=== PATIENT | female | born 1940 | race Caucasian/White ===

== ENCOUNTER 2020-01-03 11:30 | Outpatient (CLI) | payer OTHER, SELFPAY ==
--- NOTE | ~2020-01-03 | XR_ITS ---
EXAMINATION: XR shoulder LT min 2V DATE: 01/03/2020 12:33 INDICATION: Left shoulder pain. Injury. TECHNIQUE: 5 views of left shoulder were obtained. COMPARISON: None. FINDINGS: Bone alignment is normal. No fracture. There is mild osteoarthritis of glenohumeral joint a nd acromioclavicular joint. There are surgical clips in the neck. IMPRESSION: 1. Mild polyarticular osteoarthritis. Reviewed, dictated and finalized at location A.
== END 2020-01-03 11:31 | disposition home or self-care (01) ==
PROVIDERS: PCP Internal Medicine; Visit Provider Internal Medicine
DX: M19.012 Primary osteoarthritis, left shoulder (principal)
CPT/HCPCS: 73030

== ENCOUNTER 2020-04-01 14:45 | Outpatient (RCR) | payer OTHER, SELFPAY ==
[2020-03-17 12:39] VITALS: BP_SYST 120; BP_SYST 130
--- NOTE | 2020-03-17 13:53 | PTOPEVAL ---
PHYSICAL THERAPY EVALUATION AND PLAN OF CARE 03-17-2020 The PT evaluation was completed today. The evaluation is for the diagnosis of other symptoms and signs of the musculoskeletal system. Suzanne reports problems with R and L shoulder pain and weakness, back pain, leg weakness and problems walking. She reports at this time, the shoulders are giving her the most problems. After discussed PT services with her, she agreed to begin PT for the R and L shoulders for 2x/week for 3 weeks, then we will address her leg weakness and gait/balance issues. Thank you for referring Suzanne Snider to [facility]. Please review, sign, date and return this plan of care MARGO. I agree with and certify that the following plan of care is medically necessary. Referring Physician Date Attending Provider: Paty Montelongo, ASHAC *PT Outpatient Evaluation Start: 03/17/20 12:38 Document 03/17/20 12:39 JOSEFINA (Rec: 03/17/20 13:49 JOSEFINA [id number]) Therapy Assessment Status Assessment Status Assessment Status Evaluation Outpatient Past Medical History Past Medical History Source of Past Medical History Patient Neurological History Hx Transient Ischemic Attacks (TIA) Yes: reports no residual issues Hx Other Neurological Disorders Yes: reports some times cannot think of words,finish sentances Cardiovascular History Hx Hypertension Yes: meds Hx Other Cardiac Disorders Yes: carotid artery surgery R and L Respiratory History Hx Respiratory Disorders No Significant History Gastrointestinal History Hx Gastrointestinal Disorders No Significant History Genitourinary History Hx Other Genitourinary Disorders Yes: overactive bladder - to have surgery Musculoskeletal History Hx Back Pain Yes Hx Other Musculoskeletal Disorders Yes: B shoulder pain Endocrine History Hx Hypothyroidism Yes: meds HEENT History Hx HEENT Disorders No Significant History Evaluation Information Problem Diagnosis other symptoms and signs involving the musculoskeletal system Onset December 2019 Additional Evaluation Detail she reports- pain all over-- shoulders, back, legs; problems with walking, legs and arms weak; Subjective Information shoulders worse in the past Query Text:As Reported By Patient/ few months; was hit by door Family in R shoulder when carrying in groceries; also have back pain and leg pain--problems walking; had 2 sessions for back at another facility, but shoulder
--- NOTE | 2020-03-24 14:20 | PCPTNOTE ---
Addendum entered by Karmen Leon, PT 03/27/20 13:19: when pt here today, she stated she called and left a message notifying us that she was ill and would not be here for 03-24-20 appt Original Note: pt did not show for today's treatment session;
--- NOTE | 2020-04-01 15:08 | PCPTNOTE ---
pt did not show for today's treatment;
--- NOTE | 2020-04-03 14:30 | PCPTNOTE ---
Patient called & cancelled scheduled appointment this date due to [ illness.]
--- NOTE | 2020-04-07 09:25 | PCPTNOTE ---
pt did not show for today's reevaluation appt;
--- NOTE | 2020-04-22 11:36 | PCPTNOTE ---
PHYSICAL THERAPY DISCHARGE 04-22-2020 Attending Provider: Paty Montelongo, [employer]ASURES SEALER-C Patient:Suzanne Snider Date of :1940 Mrs. Snider has not returned for any further treatments since 04/01/2020, therefore she will be discharged at this time. She received 3 PT sessions, from March 17 to March 27 for the diagnosis of B shoulder pain. Her order also had diagnosis of decreased balance, which had not yet been addressed. She called/canceled 1 and did not show for 3 appointments. The goals were not addressed. Thank you for referring Suzanne to [facility]. Please review, sign, date and return this discharge summary MARGO. I have been updated about the patient's current status and I agree with discharge from the above service at this time. Referring Physician Date
== END 2020-04-23 10:49 | disposition home or self-care (01) ==
LOC: ANHPT 14:45
PROVIDERS: PCP Internal Medicine; Visit Provider Nurse Practitioner
DX: R29.898 Other symptoms and signs involving the musculoskeletal system (principal)
CPT/HCPCS: 97110; 97140; 97161

== ENCOUNTER 2020-04-17 12:04 | Emergency (ER) | payer OTHER, SELFPAY ==
--- NOTE | ~2020-04-17 | CT_ITS ---
EXAMINATION: CT cervical spine wo con DATE: 04/17/2020 12:35 INDICATION: Frontal head injury. TECHNIQUE: Computed tomography (CT) of the cervical spine was performed without intravenous contrast. Automated exposure control and iterative reconstruction technique were employed. The dose-length pro duct was 303.76 mGy-cm. COMPARISON: None FINDINGS: There is kyphosis of cervical spine. There is 8 degrees dextrocurvature of cervical spine. There is 2 mm anterolisthesis of T1 on T2. Vertebral body heights are normal. There is severely decre ased disc height from C3-C4 through C7-T1. The following disc levels are specifically discussed: C2-C3: There is no uncovertebral joint osteoarthritis. There is moderate right and severe left facet joint osteoarthritis. There is mild left neural foraminal stenosis. There is no central canal stenosi s. C3-C4: There is moderate right and severe left uncovertebral joint osteoarthritis. There is mild righ t and severe left facet joint osteoarthritis. There is moderate left neural foraminal stenosis. There is mild central canal stenosis. C4-C5: There is mild right and severe left uncovertebral joint osteoarthritis. There is moderate righ t and severe left facet joint osteoarthritis. There is mild left neural foraminal stenosis. There is mild central canal stenosis. C5-C6: There is moderate bilateral uncovertebral joint osteoarthritis. There is mild bilateral facet joint osteoarthritis. There is moderate right and mild left neural foraminal stenosis. There is mild central canal stenosis. C6-C7: There is severe bilateral uncovertebral joint osteoarthritis. There is moderate bilateral face t joint osteoarthritis. There is moderate bilateral neural foraminal stenosis. There is mild central canal stenosis. C7-T1: There is severe bilateral uncovertebral joint osteoarthritis. There is severe bilateral facet joint osteoarthritis. There is mild bilateral neural foraminal stenosis. There is mild central canal stenosis. IMPRESSION: 1. No fracture. 2. Severe cervical spondylosis. Reviewed, dictated and finalized at location A.
--- NOTE | ~2020-04-17 | CT_ITS ---
EXAMINATION: CT brain wo con DATE: 04/17/2020 12:35 INDICATION: Frontal head injury. TECHNIQUE: Computed tomography (CT) of the head was performed without intravenous contrast. The mA wa s adjusted according to patient size. Iterative reconstruction technique was employed. The dose-lengt h product was 605.33 mGy-cm. COMPARISON: Head CT 11/20/2007 FINDINGS: There is an old infarct involving the left basal ganglia, left internal capsule, and left f rontal lobe shahid radiata. There is a small old infarct in right frontoparietal region. There is no intracranial hemorrhage, acute infarction, or abnormal intracranial mass lesion. There is ex vacuo di latation of left lateral ventricle. The orbits are normal. There is mild mucosal thickening in the et hmoid sinuses. The mastoid air cells are normal. There is a right frontal scalp hematoma. IMPRESSION: 1. 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 Reviewed, dictated and finalized at location A. IMPRESSION: 1. 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
[2020-04-17 12:16] VITALS: BP 192/74; PULSE 87; RESP 19; TEMP 36.7; O2SAT 99
--- NOTE | 2020-04-17 12:27 | ED.HEATRA ---
HPI - Head Injury General Chief complaint: Head Injury <Serge Conteh HemaGIOVANNA - Last Filed: 04/17/20 13:10> Stated complaint: fall <Serge Conteh HemaGIOVANNA Last Filed: 04/17/20 13:10> Time Seen by Provider: 04/17/20 12:18 <Serge Garrido PA-C - Last Filed: 04/17/20 13:10> Source: patient <Serge GarridoGIOVANNA Last Filed: 04/17/20 13:10> Mode of arrival: ambulatory <Serge Conteh HemaGIOVANNA Last Filed: 04/17/20 13:10> Limitations: no limitations <Serge Garrido PA-C Last Filed: 04/17/20 13:10> History of Present Illness HPI Narrative: Patient is an 80-year-old female who presents to emergency department for evaluation of head injury from urgent care patient was ambulating when she tripped on her shoes falling forward striking the head where she has abrasions and a very large hematoma to the forehead patient denies loss of consciousness syncope. . Patient notes moderate aching pain to the face where her abrasions and contusion are located. Patient is afebrile nontoxic-appearing denies URI symptoms. Patient lives at home by herself. Patient denies anticoagulant use. Patient notes moderate pain to the neck denies any other skeletal injury or pain at this time. <Serge Garrido PA-C Last Filed: 04/17/20 13:10> Related Data Home medications: Home Medications Medication Instructions Recorded Confirmed solifenacin 5 mg tablet 5 mg PO DAILY 02/08/20 02/08/20 <Serge Garrido PA-C Last Filed: 04/17/20 13:10> Allergies/Adverse reactions: Allergies Allergy/AdvReac Type Severity Reaction Status Date / Time codeine AdvReac Unknown Rash Verified 04/17/20 12:19 <Serge Garrido PA-C Last Filed: 04/17/20 13:10> Review of Systems Review of Systems: All systems reviewed & are unremarkable except as noted in HPI and below <Serge Garrido PA-C Last Filed: 04/17/20 13:10> PMF Past Medical History Medical History: Medical History (Updated 07/23/20 @ 13:08 by Patricia Weiner MD) Anxiety and depression Hypothyroidism (acquired) Mixed hyperlipidemia Restless legs syndrome <Serge Garrido PA-C - Last Filed: 04/17/20 13:10> Family History Family History: Family History Mother Family history of pancreatic cancer Patient's mother is Father Acute myocardial infarction Patient's father is Sibling Family history of transient ischemic attacks Other Cerebrovascular accident Family history of cardiovascular disease Hypertension <Serge Garrido PA-C - Last Filed: 04/17/20 13:10> Social History Social History: Social History Smoking status: Former smoker Smoking end date: 09/26/02 Alcohol intake: current Gender identity (if verbalized by the patient): Female <Serge Garrido PA-C - Last Filed: 04/17/20 13:10> Exam Narrative: Exam Narrative: GENERAL: Well-appearing, well-nourished, and in no acute distress. HEAD: Normocephalic, hematoma of the right forehead. Abrasion of the right cheek and upper lip midline EYES: PERRLA and EOMI. ENT: Nares clear, no rhinorrhea or epistaxis. Mucous membranes moist. Oropharynx without tonsillar hypertrophy exudate or other lesions. NECK: Supple. No adenopathy or masses. CHEST: Clear to auscultation. No respiratory distress. No wheezes rales or rhonchi HEART: Regular rate and rhythm. No murmur heard. Normal peripheral pulses. ABDOMEN: Soft, nontender, nondistended EXTREMITIES: Normal range of motion. No edema. Cervical tenderness to palpation. No thoracic or lumbar tenderness SKIN: Warm, dry, no rash. NEURO: No focal deficits. Alert and oriented x3. Cranial nerves II through XII grossly intact. Normal speech. Motor and sensory intact and symmetrical in the extremities PSYCH: Normal mood and affect. <Serge Wood
[2020-04-17 12:56] LABS: Basophils Absolute Auto 0.1 K/mm3 (0.0-0.1); Basophils Percent Auto 0.5 % (0.2-1.2); Eosinophils Absolute Auto 0.2 K/mm3 (0-0.3); Eosinophils Percent Auto 1.9 % (0-4.4); Hematocrit 39.9 % (37.0-47.0); Hemoglobin 12.6 g/dL (12.0-15.0); Immature Granulocyte Absolute 0.05 K/mm3 (0.00-0.031); Immature Granulocyte Percent A 0.4 % (0-0.5); Lymphocytes Absolute Auto 1.82 K/mm3 (0.9-3.2); Lymphocytes Percent Auto 15.3 % (18.3-44.2); Mean Corpuscular HGB Conc 31.6 g/dl (32-36); Mean Corpuscular Hemoglobin 26.9 pg (26-34); Mean Corpuscular Volume 85.1 fl (80-100); Mean Platelet Volume 9.3 fl (7.4-10.4); Monocytes Absolute Auto 1.3 K/mm3 (0.1-0.6); Monocytes Percent Auto 10.5 % (2.6-8.5); Neutrophils Absolute Auto 8.5 K/mm3 (1.3-6.7); Neutrophils Percent Auto 71.4 % (45.5-73.1); Platelet Count Result 525 k/mm3 (150-375); Red Blood Count 4.69 M/mm3 (4.2-5.4); Red Cell Distribution Width 15.1 % (11.5-14.5); White Blood Count 11.9 K/mm3 (4.5-10.0)
[2020-04-17 13:05] LABS: INR 1.2; Prothrombin Time 14.6 Seconds (11.1-14.7)
[2020-04-17 13:09] LABS: Alanine Aminotransferase 14 U/L (4-35); Alkaline Phosphatase 105 U/L (38-126); Anion Gap 12.6 mmol/L (7-16); Aspartate Amino Transferase 20 U/L (14-36); Bilirubin,Total 0.4 mg/dL (0.2-1.3); Blood Urea Nitrogen 16 mg/dL (7-17); Calcium 9.3 mg/dL (8.4-10.2); Carbon Dioxide 31 mmol/L (22-30); Chloride 96 mmol/L (98-107); Estimated Glomerular Filt Rate > 60; Glucose 113 mg/dL (65-105); Potassium 3.6 mmol/L (3.4-5.0); Sodium 136 mmol/L (137-145)
[2020-04-17] MEDS: SODIUM CHLORIDE 0.9% IV 1,000 ML 999 ML IV CONT (13:11)
[2020-04-17 13:50] VITALS: BP 176/57; PULSE 87; RESP 20; O2SAT 96
[2020-04-17 14:18] LABS: Add Urine Microscopic? YES; Appearance Urine Clear (Clear); Bilirubin Urine Negative (Negative); Blood Urine Negative (Negative); Color Urine Yellow (Yellow); Glucose Urine UA Negative (Negative); Ketones Urine Negative (Negative); Leukocyte Esterase Ur Trace LEU/UL (Negative); Mucus Urine Rare /lpf; Nitrate Urine Negative (Negative); Protein Urine Negative (Negative); RBC Urine 0-2 /hpf (0-2); Specific Grav Ur 1.012 (1.001-1.035); Squamous Epithelial Cell Urine Many /hpf (Few); Urobilinogen Urine Negative mg/dL (<2.0)
== END 2020-04-17 14:24 | disposition home or self-care (01) ==
PROVIDERS: Emergency Medicine Emergency Medical Services; Emergency Provider Emergency Medicine; PCP Internal Medicine
DX: S00.81XA Abrasion of other part of head, initial encounter (principal); M47.812 Spondylosis without myelopathy or radiculopathy, cervical region; S00.83XA Contusion of other part of head, initial encounter; E03.9 Hypothyroidism, unspecified; E78.2 Mixed hyperlipidemia; G25.81 Restless legs syndrome; W18.09XA Striking against other object with subsequent fall, initial encounter
CPT/HCPCS: 36415; 70450; 72125; 80053; 81001; 85025; 85610; 96365; 99284; J0131; J7030; L0140

== ENCOUNTER 2020-06-04 17:33 | Inpatient (IN) | payer OTHER, SELFPAY ==
[2020-06-04] VITALS (10 sets, daily range): BP systolic 134–198; BP diastolic 63–94; PULSE 71–89; RESP 13–23; TEMP 36.6; O2SAT 19–100; BMI 30.9
--- NOTE | ~2020-06-04 | XR_ITS ---
EXAMINATION: XR chest 1V EXAM DATE: 06/04/2020 19:06 INDICATION: Syncope. Dizziness. Fall, weakness. TECHNIQUE: Portable AP frontal chest x-ray was obtained. Comparison is made to prior examination from 05/25/2013. FINDINGS: There is elevated right hemidiaphragm, higher than on prior study. The lungs are clear. Th ere are no pleural effusions. Cardiac silhouette is prominent but magnified on this AP technique. There is no pneumothorax suspected. The bones and soft tissues are unremarkable. IMPRESSION: Elevated right hemidiaphragm, possible paralysis. No acute cardiopulmonary findings. Reviewed, dictated and finalized at location A. IMPRESSION: Elevated right hemidiaphragm, possible paralysis. No acute cardiopu lmonary findings.
--- NOTE | ~2020-06-04 | CT_ITS ---
EXAMINATION: CT abdomen pelvis wo/w con DATE: 06/08/2020 14:33 INDICATION: Gross hematuria. TECHNIQUE: Computed tomography (CT) of the abdomen and pelvis was performed without and with intraven ous contrast using a total of 130 mL Omnipaque-350 intravenous contrast with a double-bolus technique for simultaneous opacification of the renal parenchyma and renal collecting system. Automated exposu re control and iterative reconstruction technique were employed. The dose-length product was 2282.31 mGy-cm. COMPARISON: None FINDINGS: The visualized portions of the lung bases demonstrate mild atelectasis. No pleural effusion. The hear t size is normal. There are coronary artery calcifications. No pericardial effusion. There is eventra tion of anterior right hemidiaphragm. The liver, gallbladder, spleen, pancreas, and adrenal glands ar e normal. There is a 7 mm cyst in right kidney. There is no urolithiasis. The ureters are well opacif ied and are normal. There is a small volume of hematoma in the bladder. There is a small sliding hiat al hernia. There is a left inguinal hernia containing fat. There are no dilated loops of bowel. The a ppendix is normal. There are no pathologically enlarged lymph nodes. There is no free intraperitoneal fluid. There is severe lumbar spondylosis and moderate thoracic spondylosis. IMPRESSION: 1. Small volume of hematoma in the bladder. 2. Small sliding hiatal hernia. 3. Left inguinal hernia containing fat. Reviewed, dictated and finalized at location A.
--- NOTE | ~2020-06-04 | CT_ITS ---
EXAMINATION: CT brain wo con, CT cervical spine wo con EXAM DATE: 06/04/2020 18:57 (accession [id number]), 06/04/2020 18:58 (accession [id number]) INDICATION: Fall, hit frontal head injury. TECHNIQUE: Spiral CT of the head was performed without contrast. Axial, coronal and sagittal images were reviewed. Spiral CT of the cervical spine was performed without contrast. Axial images were rev iewed. Coronal and sagittal reformatted images were also reviewed. The dose-length product (DLP) fo r this examination was 681.00 (accession [id number]), 375.40 (accession [id number]) mGy-cm. The exposure was tailored according to patient size, and iterative reconstruction (ASIR) was used as additional dose reduction technique. Comparison is made to prior examination from 04/17/2020. FINDINGS: HEAD CT: There is old left external capsular, basal ganglia lacunar infarction. There is no acute int raparenchymal hemorrhage. No evidence of intraparenchymal brain mass lesion. No evidence of acute i nfarction. There is mild to moderate periventricular and subcortical hypodensity, nonspecific but pro bably related to small vessel ischemic disease. There is mild to moderate prominence of the sulci a nd ventricles related to cerebral atrophy. There is intracranial carotid arteriosclerosis. There is no mass effect or midline shift. There is no obstructive hydrocephalus suspected. There are no ex tra-axial collections. There are no acute calvarial fractures. The orbits are unremarkable. Decrea se in size of previously seen right frontal scalp hematoma. The visualized sinuses and mastoid air ce lls are well aerated. CERVICAL CT: There is advanced cervical disc disease and arthropathy. There is no evidence of acute c ervical fracture. The odontoid process is intact. Pre-dens space is normal. Prevertebral soft tiss ue is normal. There are no soft tissue abnormalities identified. There is no disc space widening or traumatic vertebral body subluxation suspected. A detailed level by level evaluation of spondylosis can be added as addendum if requested. IMPRESSION: 1. No acute intracranial findings or cervical fracture. 2. Advanced cervical spondylosis. 3. Old left external capsular, basal ganglia lacunar infarction. 4. Age-related intracranial findings. 5. Resolving right frontal scalp hematoma. Reviewed, dictated and finalized at location A. IMPRESSION: 1. No acute intracranial findings or cervical fracture. 2. Advanced cervical spondylosis. 3. Old left external capsular, basal ganglia lacunar infarction. 4. Age-related intracranial findings. 5. Resolving right frontal scalp hematoma.
--- NOTE | ~2020-06-04 | XR_ITS ---
EXAMINATION: XR ankle RT min 3V EXAM DATE: 06/04/2020 19:05 INDICATION: Initial encounter following injury, with pain of the right ankle. TECHNIQUE: Right ankle frontal, lateral and oblique projections obtained and reviewed. There is no p rior study for comparison. FINDINGS: There is acute closed posttraumatic oblique fracture through the right fibular distal metap hysis extending into the syndesmosis. There is about 4 mm of displacement. The mortise relationship d oes still appear intact. There are multiple small ossifications distal to the medial malleolus, consi stent with sequela from old injuries. No acute medial malleolar fracture identified. Swelling surroun ding the ankle. IMPRESSION: Right fibular distal metaphysis oblique fracture into distal tibiofibular syndesmosis. Reviewed, dictated and finalized at location A. IMPRESSION: Right fibular distal metaphysis oblique fracture into distal tibiof ibular syndesmosis.
--- NOTE | ~2020-06-04 | XR_ITS ---
EXAMINATION: XR ankle RT 2V DATE: 06/05/2020 08:50 INDICATION: Right ankle fracture. Stress views TECHNIQUE: Anteroposterior, oblique, mortise, and lateral views of the right ankle were obtained. COMPARISON: 06/04/2020 FINDINGS: And seen is an oblique fracture of the distal right fibula with fracture line crossing the medial cor grayson approximately 2 cm above level of the tibiotalar joint line. No change in one cortical width late ral displacement of the fracture on stress views relative to the unstressed views. Similarly the ankl e mortise remains congruent with no significant widening of the medial clear space with stress. There are a few heterotopic ossicles near the tip of the medial malleolus likely sequela of an earlier del toid ligament sprain. No other fractures identified. Tibiotalar joint space is normal. IMPRESSION: 1. One cortical width lateral displacement of the oblique distal right fibular fracture which along w ith a congruent ankle mortise is unchanged with stress. Reviewed, dictated and finalized at location A. IMPRESSION: 1. One cortical width lateral displacement of the oblique distal right fibular fracture which along with a congruent ankle mortise is unchanged with stress.
--- NOTE | ~2020-06-04 | XR_ITS ---
EXAMINATION: XR surgery orthopedic DATE: 06/10/2020 18:54 INDICATION: Oblique fracture of distal right fibula. TECHNIQUE: 4 intraoperative fluoroscopic views of right ankle were obtained. I was not present. Fluor oscopy exposure time was 104 seconds. COMPARISON: Right ankle radiographs 06/05/2020 FINDINGS: There is an oblique fracture distal fibula in near-anatomic alignment status post open redu ction internal fixation with semitubular plate and multiple screws. There is a band across the tibiof ibular syndesmosis. There is normal alignment at the ankle mortise. IMPRESSION: 1. Open reduction internal fixation of an oblique fracture of distal fibula. 2. Internal fixation of the tibiofibular syndesmosis. Reviewed, dictated and finalized at location A.
--- NOTE | ~2020-06-04 | XR_ITS ---
XR ankle LT min 3V DATE: 06/06/2020 08:27 INDICATION: Comparison TECHNIQUE: 4 views COMPARISON: 06/04/2020 right ankle FINDINGS: No fracture or dislocation or disruption of the ankle mortise. Slight plantar calcaneal ent hesopathy. IMPRESSION: Slight plantar calcaneal enthesopathy Reviewed, dictated and finalized at location A.
--- NOTE | ~2020-06-04 | XR_ITS ---
EXAMINATION: XR pelvis 1-2V EXAM DATE: 06/04/2020 19:06 INDICATION: Syncope last night, fall. TECHNIQUE: Pelvis frontal projection(s) obtained and reviewed. There is no prior study for compariso n. FINDINGS: There is mild to moderate symmetric bilateral hip primary osteoarthritis. Moderate to migdalia re lower lumbar disc disease. There are no acute pelvic fractures or dislocations identified. There is no subcutaneous gas. There are arterial calcifications, arteriosclerosis. There are no radiopaq ue foreign bodies. IMPRESSION: 1. Pelvis x-ray exam without acute osseous findings. Reviewed, dictated and finalized at location A.
--- NOTE | ~2020-06-04 | US_ITS ---
EXAMINATION: US carotid duplex BI DATE: 06/05/2020 15:36 INDICATION: Syncope. Carotid stenosis. TECHNIQUE: Grayscale, color Doppler, and pulsed Doppler images of the cervical carotid arteries were obtained. The degree of vessel stenosis is placed in one of the following categories: normal, <50%, 5 0-69%, >=70% but less than near-occlusion, near-occlusion, or total occlusion. Note that percent sten osis relative to normal distal artery lumen diameter is indirectly measured from velocity measurement s as described by Froylan, et al. Radiology 2003; 229:340-346. Notes: Normal: Peak systolic velocity <125 centimeters/sec and no plaque <50%. Peak systolic velocity <125 ( EDV <40; ICA/CCA PSV ratio <2.0; used these factors only a tandem lesions or low cardiac output or co ntralateral disease) 50-69 %: PSV 125-230 (EDV 40-100; ratio 2-4) >= 70% but less than near occlusion: PSV greater than 230 (EDV > 100; ratio> 4.0) Near Occlusion: PSV that is variable; markedly narrowed lumen Occlusion: Absent flow on color/spectral Doppler and no lumen on little scale. COMPARISON: None. FINDINGS: RIGHT: The right common carotid artery (CCA) peak systolic velocity (PSV) is 68 cm/s. The right internal car otid artery (ICA) PSV is 82 cm/s. The right ICA end-diastolic velocity (EDV) is 17 cm/s. The right IC A/CCA PSV ratio is 1.2. The external carotid artery (ECA) PSV is 85 cm/s. There is antegrade flow in the right vertebral artery. LEFT: The left CCA PSV is 81 cm/s. The left ICA PSV is 83 cm/s. The left ICA EDV is 17 cm/s. The left ICA/C CA PSV ratio is 1.0. The ECA PSV is 223 cm/s. There is antegrade flow in the left vertebral artery. IMPRESSION: 1. Less than 50% stenosis in the right internal carotid artery by sonographic criteria. 2. Less than 50% stenosis in the left internal carotid artery by sonographic criteria. Reviewed, dictated and finalized at location A. IMPRESSION: 1. Less than 50% stenosis in the right internal carotid artery by sonographic gino holcomb. 2. Less than 50% stenosis in the left internal carotid artery by sonographic melissa bernabe.
--- NOTE | 2020-06-04 18:00 | ECG_ITS ---
Measurements Intervals [place] Rate: 73 P: 96 NC: 182 QRS: -28 QRSD: 109 T: 7 QT: 392 QTc: 433 Interpretive Statements SINUS RHYTHM DELAYED PRECORDIAL R/S TRANSITION LEFT VENTRICULAR HYPERTROPHY AND ST-T CHANGE MINIMAL Q WAVES- HIGH LATERAL LEADS BASELINE ARTIFACT- I, II, V1-V2 BORDERLINE ECG Electronically Signed On 06-05-2020 6:55:19 CDT by Jarred Foy D.O.
[2020-06-04 18:08] LABS: Basophils Absolute Auto 0.1 K/mm3 (0.0-0.1); Basophils Percent Auto 0.5 % (0.2-1.2); Eosinophils Absolute Auto 0.2 K/mm3 (0-0.3); Eosinophils Percent Auto 1.4 % (0-4.4); Hemoglobin 13.3 g/dL (12.0-15.0); Immature Granulocyte Absolute 0.04 K/mm3 (0.00-0.031); Immature Granulocyte Percent A 0.4 % (0-0.5); Lymphocytes Absolute Auto 2.05 K/mm3 (0.9-3.2); Mean Corpuscular HGB Conc 31.7 g/dl (32-36); Mean Corpuscular Volume 85.2 fl (80-100); Mean Platelet Volume 9.5 fl (7.4-10.4); Monocytes Absolute Auto 1.2 K/mm3 (0.1-0.6); Monocytes Percent Auto 10.6 % (2.6-8.5); Neutrophils Absolute Auto 7.9 K/mm3 (1.3-6.7); Neutrophils Percent Auto 69.1 % (45.5-73.1); Platelet Count Result 490 k/mm3 (150-375); Red Blood Count 4.93 M/mm3 (4.2-5.4); White Blood Count 11.4 K/mm3 (4.5-10.0)
[2020-06-04 18:19] LABS: Anion Gap 7 mmol/L (8-16); Blood Urea Nitrogen 8 mg/dL (7-17); Calcium 9.3 mg/dL (8.4-10.2); Carbon Dioxide 31 mmol/L (22-30); Chloride 97 mmol/L (98-107); Estimated CRCL calculation 64 ml/min; Estimated Glomerular Filt Rate > 60; Glucose 112 mg/dL (65-105); Potassium 3.5 mmol/L (3.4-5.0); Sodium 135 mmol/L (137-145)
--- NOTE | 2020-06-04 18:28 | ED.GENADULT ---
HPI - General Adult General Chief complaint: Syncope Stated complaint: weakness-r ankle pain Time Seen by Provider: 06/04/20 17:59 Source: RN notes reviewed History of Present Illness HPI narrative: Patient presents emergency department from home via EMS for a fall. Patient states she was walking approximately 1030 last night to get her dog when she believes she tripped and fell. She states that she believes her struck her head and had loss of consciousness. She denies any dizziness or chest pain prior to the fall. Patient attempted to call family and was unable to get help and laid on the ground all last night into today until family was able to come and find patient this afternoon. Patient currently lives at home by herself and patient's sister is here. States the patient's been having a more difficult time walking. Patient does not regularly take her medications that she is supposed to as well. Patient denies any recent illness. She denies any fevers or chills chest pain shortness of breath abdominal pain nausea vomiting. Patient does report right ankle pain and swelling Related Data Home Medications Medication Instructions Recorded Confirmed solifenacin 5 mg tablet 5 mg PO DAILY 02/08/20 02/08/20 aspirin 06/04/20 Allergies Allergy/AdvReac Type Severity Reaction Status Date / Time codeine AdvReac Unknown Rash Verified 06/04/20 17:51 Review of Systems Review of Systems: Narrative: Gen.: Denies fevers or chills Eyes: Denies eye pain or visual change ENT: Denies congestion Respiratory: Denies shortness of breath or cough CV: Denies chest pain or palpitations GI: Denies abdominal pain nausea, emesis or diarrhea Musculoskeletal: See HPI Neuro: Denies numbness, tingling reports weakness Skin: Denies rash Except as documented, all other systems reviewed and negative [facility] Past Medical History Medical History Anxiety and depression Hypothyroidism (acquired) Mixed hyperlipidemia Restless legs syndrome Social History Social History Smoking status: Former smoker Smoking end date: 09/26/02 Alcohol intake: never Substance use: never Gender identity (if verbalized by the patient): Female Spiritual care concerns: No Exam Narrative: Exam Narrative: APPEARANCE: No acute distress, nontoxic, resting in bed EYES: EOMI, [place] HEENT: Normocephalic, ecchymosis over right forehead oromucosa moist Neck: No midline tenderness palpation mild tender to palpation bilateral paravertebral muscle C5-7 RESPIRATORY: No respiratory distress Clear to auscultation bilaterally with no rhonchi wheezing or rales. CARDIOVASCULAR: Regular rate and rhythm without murmurs rubs or gallops. ABDOMINAL: Soft, nontender, nondistended, no rebound or guarding MUSCULOSKELETAl: Moves all extremities. No clubbing, cyanosis or edema. Tender to palpation of her right ankle diffusely with swelling present, no tenderness at the base of the fifth metatarsal or the proximal fibula dorsalis pedis pulse 2+ neurovascular intact, no tenderness of the right knee or hip NEURO: Awake and alert x 3. Following commands, speech normal, no focal deficits SKIN:: Warm, dry. No rashes lesions or abrasions PSYCHIATRIC: Normal affect/mood, Course Course Emergency Course: Discussed with Dr. Stout presentation and work-up agrees with consult and posterior splint Discussed with Dr. sánchez presentation work-up. Agrees with admission at this time. She does request the patient receive hydralazine 10 mg x 1 at this time Discussed with patient and family results of workup and diagnosis. Discussed need for admission. Patient and family understand and agree to current treatment plan Vital Signs Vital signs: Vital Signs Pulse Rate 78 06/04/20 17:41 Respiratory Rate 23 H 06/04/20 17:41 Temperature 97.8 F 06/04/20 17:47 Pulse Rate 82 06/04/20 20
[2020-06-04] MEDS: SODIUM CHLORIDE 0.9% IV 1,000 ML 999 ML IV CONT (18:30)
--- NOTE | 2020-06-04 18:57 | PC.NURSE ---
DENYS IN LAB AWARE OF LAB ADD ON'S.
[2020-06-04 19:05] LABS: Creatine Kinase 123 U/L (30-135)
[2020-06-04 19:18] LABS: Troponin I 0.024 ng/mL (0.000-0.034)
[2020-06-04 19:19] LABS: INR 1.1; Prothrombin Time 14.2 Seconds (11.1-14.7)
[2020-06-04 19:20] LABS: Partial Thromboplastin Time 36.5 SECONDS (22.3-36.8)
[2020-06-04] MEDS: hydrALAZINE HCL 20 MG/ML VIAL 10 MG IV PUSH (20:50)
[2020-06-04 21:03] LABS: Add Urine Microscopic? YES; Appearance Urine Clear (Clear); Bacteria Urine Trace /hpf; Bilirubin Urine Negative (Negative); Blood Urine 1+ (Negative); Color Urine Yellow (Yellow); Glucose Urine UA Negative (Negative); Ketones Urine Negative (Negative); Leukocyte Esterase Ur Negative LEU/UL (Negative); Mucus Urine Rare /lpf; Nitrate Urine Negative (Negative); Protein Urine Negative (Negative); RBC Urine 0-2 /hpf (0-2); Specific Grav Ur 1.008 (1.001-1.035); Squamous Epithelial Cell Urine Rare /hpf (Few); Urobilinogen Urine Negative mg/dL (<2.0); WBC Urine 0-3 /hpf
--- NOTE | 2020-06-04 21:30 | ADMGEN ---
This patient, Suzanne Snider, was admitted to Medical Room 341-01. Patient/family oriented to hospital policies and general routines including ID bracelet, bed and alarms, visiting hours, pain management, procedures, bathroom and other care routines, personal items, smoking policy, room service/diet, and visiting hours. Valuables list has been completed. Information on how to activate the Rapid Response Team has been discussed. Patient/Family are encouraged to report perceived risks to care and to ask questions if they do not understand what they are told or what they should do.
[2020-06-04 22:45] LABS: Troponin I 0.026 ng/mL (0.000-0.034)
[2020-06-04] MEDS: rOPINIRole HCL 1 MG TABLET 2 MG PO (23:57)
[2020-06-05] VITALS (10 sets, daily range): BP systolic 147–164; BP diastolic 58–80; PULSE 72–85; RESP 18; TEMP 36.4–36.6; O2SAT 94–98; BMI 30.9
[2020-06-05 01:06] LABS: Troponin I 0.024 ng/mL (0.000-0.034)
[2020-06-05] MEDS: LEVOTHYROXINE SODIUM 125 MCG TABLET PO (05:45)
[2020-06-05 06:00] LABS: Basophils Absolute Auto 0.1 K/mm3 (0.0-0.1); Basophils Percent Auto 0.6 % (0.2-1.2); Eosinophils Absolute Auto 0.3 K/mm3 (0-0.3); Eosinophils Percent Auto 2.8 % (0-4.4); Hematocrit 37.1 % (37.0-47.0); Hemoglobin 11.8 g/dL (12.0-15.0); Immature Granulocyte Absolute 0.03 K/mm3 (0.00-0.031); Immature Granulocyte Percent A 0.3 % (0-0.5); Lymphocytes Absolute Auto 1.95 K/mm3 (0.9-3.2); Lymphocytes Percent Auto 21.5 % (18.3-44.2); Mean Corpuscular HGB Conc 31.8 g/dl (32-36); Mean Corpuscular Hemoglobin 26.7 pg (26-34); Mean Corpuscular Volume 83.9 fl (80-100); Mean Platelet Volume 9.6 fl (7.4-10.4); Monocytes Absolute Auto 1.1 K/mm3 (0.1-0.6); Monocytes Percent Auto 11.6 % (2.6-8.5); Neutrophils Absolute Auto 5.7 K/mm3 (1.3-6.7); Neutrophils Percent Auto 63.2 % (45.5-73.1); Platelet Count Result 456 k/mm3 (150-375); Red Blood Count 4.42 M/mm3 (4.2-5.4); Red Cell Distribution Width 14.8 % (11.5-14.5); White Blood Count 9.1 K/mm3 (4.5-10.0)
[2020-06-05 06:11] LABS: Anion Gap 3 mmol/L (8-16); Blood Urea Nitrogen 6 mg/dL (7-17); Calcium 8.7 mg/dL (8.4-10.2); Carbon Dioxide 30 mmol/L (22-30); Chloride 102 mmol/L (98-107); Estimated CRCL calculation 75 ml/min; Estimated Glomerular Filt Rate > 60; Glucose 91 mg/dL (65-105); Potassium 3.3 mmol/L (3.4-5.0); Sodium 135 mmol/L (137-145)
--- NOTE | 2020-06-05 09:12 | PM.CNOR ---
History of Present Illness HPI Consult date: 06/05/20 <IKE Us - Last Filed: 06/05/20 09:38> 06/06/20 <Karl Stout MD - Last Filed: 06/06/20 17:18> Chief complaint: Fall <IKE Us - Last Filed: 06/05/20 09:38> [facility] Past Medical History Medical History: Medical History Anxiety and depression Chronic midline low back pain without sciatica Depression with anxiety Essential (primary) hypertension Gastroesophageal reflux disease History of transient ischemic attack and cerebral infarction Hypothyroidism (acquired) Low vitamin B12 level Mixed hyperlipidemia Osteoarthritis Restless legs syndrome Urge incontinence of urine Vitamin D deficiency <IKE Us - Last Filed: 06/05/20 09:38> Surgical History Surgical History: Surgical History History of bilateral carotid endarterectomy left carotid endarterectomy June 2004 followed by right carotid endarterectomy a couple years later History of carpal tunnel surgery right - 1996 History of tubal ligation 1977 Hx of tonsillectomy 1957 <IKE Us - Last Filed: 06/05/20 09:38> Family History Family History: Family History Mother Patient's mother is Family history of pancreatic cancer Cerebrovascular accident Hypertension Family history of cardiovascular disease Father Acute myocardial infarction Patient's father is Hypertension Family history of cardiovascular disease Sibling Family history of transient ischemic attacks <IKE Us - Last Filed: 06/05/20 09:38> Social History Social History: Social History (Updated 06/05/20 @ 11:35 by Althea Moore PA-C) Social History: Ms. Snider lives at home alone in [place]. She denies alcohol use. Remote history of occasional cigarette smoking and quit in the . Denies other substance use. Code status was discussed and she wishes her code status to be Do Not Resuscitate. PCP: Dr Hernandez Smoking status: Former smoker Alcohol intake: never Substance use: never Living arrangements: alone Gender identity (if verbalized by the patient): Female Spiritual care concerns: No <IKE Us - Last Filed: 06/05/20 09:38> Meds Home Medications and Allergies Home medications: Home Medications Medication Instructions Recorded Confirmed Type clopidogrel 75 mg tablet 75 mg PO DAILY #90 tablet 11/23/19 06/04/20 Rx valsartan 320 mg tablet 320 mg PO DAILY #90 tablet 11/23/19 06/04/20 Rx atorvastatin 10 mg tablet 10 mg PO DAILY #90 tablet 11/26/19 06/04/20 Rx bupropion HCl 300 mg 24 hr tablet, 300 mg PO QAM #90 tablet 11/26/19 06/04/20 Rx extended release furosemide 80 mg tablet 80 mg PO QAM #90 tablet 01/07/20 06/04/20 Rx potassium chloride 10 mEq 10 meq PO DAILY #90 tablet 01/08/20 06/04/20 Rx tablet,extended release solifenacin 5 mg tablet 5 mg PO DAILY 02/08/20 06/04/20 History tizanidine 4 mg capsule 4 mg PO BID PRN #90 cap 02/19/20 06/04/20 Rx tramadol 100 mg tablet 100 mg PO Q6H PRN #120 tablet 03/26/20 06/04/20 Rx ropinirole 2 mg tablet 2 mg PO BID #180 tablet 04/15/20 06/04/20 Rx levothyroxine 125 mcg tablet 125 mcg PO DAILY #90 tablet 04/23/20 06/04/20 Rx aspirin 81 mg PO DAILY 06/04/20 06/04/20 History <IKE Us - Last Filed: 06/05/20 09:38> Allergies/Adverse reactions: Allergies Allergy/AdvReac Type Severity Reaction Status Date / Time codeine AdvReac Unknown Rash Verified 06/04/20 17:51 <IKE Us - Last Filed: 06/05/20 09:38> Vital Signs Vital Signs - 24 hr 06/04/20 17:41 06/04/20 17:45 06/04/20 17:47 Temperature 36.6 C Pulse Rate 78 73 Respiratory Rate 23 H 18 18 Blood Pressure 156/74 H Pulse Oximetry 98 06/04/20 1
[2020-06-05] MEDS: ASPIRIN 81 MG CHEWABLE TABLET PO (09:18)
[2020-06-05] MEDS: VALSARTAN 160 MG TABLET 320 MG PO (09:19)
[2020-06-05] MEDS: POTASSIUM CHLORIDE 20 MEQ TABLET PO (09:19)
[2020-06-05] MEDS: SOLIFENACIN 5 MG TABLET PO (09:19)
[2020-06-05] MEDS: rOPINIRole HCL 1 MG TABLET 2 MG PO ×2 (09:19→17:41)
[2020-06-05] MEDS: buPROPion HCL XL (24 HR) 150 MG TABCR 300 MG PO (09:20)
[2020-06-05] MEDS: POTASSIUM CHLORIDE 10 MEQ TABLET.ER PO (09:20)
[2020-06-05] MEDS: FUROSEMIDE 80 MG TABLET PO (09:21)
[2020-06-05] MEDS: ATORVASTATIN 10 MG TABLET PO (09:21)
[2020-06-05] MEDS: CLOPIDOGREL BISULFATE 75 MG TABLET PO (09:21)
--- NOTE | 2020-06-05 09:55 | PM.IMHP ---
H&P: HPI History of Present Illness Date/Time: 06/05/20 09:30 Chief complaint: Fall Narrative: Date of Service is 06/05/20929 The supervising physician for this history and physical is Dr lFy Price. Ms. Snider is an 80yo F with history of hypertension, hypothyroidism, carotid stenosis with TIAs, CVA in the past, depression and anxiety who presented to the ED for evaluation after a fall at home. She fell 2 evenings ago 06/03/20 at home. She explains to me that she does not think she was feeling dizzy or lightheaded before she fell, but that she has been very unsteady on her feet lately and in fact also fell 2 weeks ago. She is unsure if she passed out but does believe that she hit the right side of her forehead when she fell. She lives alone and was unable to get up off the ground or call for help, laid on floor overnight until family found her yesterday. She experiences chronic urinary incontinence and noted that she was covered in urine when family came to help. She described right ankle pain after the fall and x-ray shows a right fibular distal metaphysis oblique fracture into the distal tibial fibular syndesmosis. Orthopedic surgery has been consulted and she has been seen by Pancho Hitchcock PA-C this morning. CT brain/C-spine shows a resolving right frontal scalp hematoma, evidence of her known left-sided chronic CVA, with no acute intracranial findings or cervical fracture. This morning, she endorses right ankle discomfort and feeling a bit anxious /overwhelmed but otherwise no complaints. Patient is admitted to the hospitalist service in the setting of a right ankle fracture after a fall at home, possible syncopal episode, and will require at least a 2 midnight stay for same. Review of Systems Review of Systems: Narrative: Patient endorses right ankle discomfort. She feels a bit anxious /overwhelmed. She reports she has been very unsteady on her feet lately at home and also had a recent fall about 2 weeks ago. This morning she denies headache, dizziness, lightheadedness, vision changes, speech changes, or focal weakness. He denies any chest pain, shortness of breath, cough, palpitations. She denies any fevers, chills, sick contacts at home. She denies any nausea, vomiting, constipation, diarrhea, hematochezia, melena. Twelve systems were reviewed with pertinent positives and negatives as per HPI. Except as documented, all other systems were reviewed and are negative. [facility], [facility] Past Medical History Medical History (Updated 06/05/20 @ 12:00 by Althea Moore PA-C) Anxiety and depression Chronic midline low back pain without sciatica Depression with anxiety Essential (primary) hypertension Gastroesophageal reflux disease History of transient ischemic attack and cerebral infarction Hypothyroidism (acquired) Low vitamin B12 level Mixed hyperlipidemia Osteoarthritis Restless legs syndrome Urge incontinence of urine Vitamin D deficiency Surgical History Surgical History History of bilateral carotid endarterectomy left carotid endarterectomy June 2004 followed by right carotid endarterectomy a couple years later History of carpal tunnel surgery right - 1996 History of tubal ligation 1977 Hx of tonsillectomy 1957 Family History Family History Mother Patient's mother is Family history of pancreatic cancer Cerebrovascular accident Hypertension Family history of cardiovascular disease Father Acute myocardial infarction Patient's father is Hypertension Family history of cardiovascular disease Sibling Family history of transient ischemic attacks Social History Social History (Updated 06/05/20 @ 11:35 by Althea Moore PA-C) Social History: Ms. Snider lives at home alone in [place]. She denies alcohol use. Remote history of occasio
--- NOTE | 2020-06-05 09:59 | ECHO_ITS ---
Patient Info Name: Suzanne Snider Age: 80 years : 1940 Gender: Female Ht: 64 in Wt: 180 lbs BSA: 1.95 m2 HR: 78 bpm BP: 163 / 80 mmHg Technical Quality: Good Exam Date: 06/05/2020 4:15 PM Exam Location: [facility] Exam Room: 341 Patient Status: Outpatient Admit Date: 06/04/2020 Staff Ordering Physician: Althea Moore PA-C Fingerprint Classifier: Jessica Cross RDCS Attending Provider: Althea Moore PA-C Exam Type: CA echo doppler color flow Study Info Indications - pre op cva Complete two-dimensional, color flow and Doppler transthoracic echocardiogram is performed. Summary 1. Complete two-dimensional, color flow and Doppler transthoracic echocardiogram is performed. 2. Left ventricular wall thickness is mildly increased. 3. Left ventricular chamber dimension is normal. 4. The mitral valve has thickened leaflets. 5. Grade I diastolic dysfunction of the left ventricle (impaired relaxation pattern). 6. Left ventricular systolic function is normal with an estimated ejection fraction of 5560.0 %. Left Ventricle Left ventricular wall thickness is mildly increased. Left ventricular chamber dimension is normal. Grade I diastolic dysfunction of the left ventricle (impaired relaxation pattern). Left ventricular systolic function is normal with an estimated ejection fraction of 5560.0 %. Right Ventricle Right ventricle chamber size are normal. Left Atria Left atrial chamber dimension is normal. Right Atria Right atrial chamber dimension is normal. Aortic Valve normal aortic valve is structurally and functionally normal by two-dimensional, color flow Doppler and Doppler interrogation. Pulmonic Valve Pulmonary valve is not well visualized. Mitral Valve The mitral valve has thickened leaflets. Tricuspid Valve The tricuspid valve leaflets are normal. Pericardium/Pleural Pericardium is normal in appearance with no evidence for significant pericardial effusion. Left Ventricular Outflow Tract Name Value Normal LVOT 2D LVOT Diameter 2.0 cm LVOT Doppler LVOT Peak Gradient 6 mmHg LVOT Mean Gradient 3 mmHg LVOT VTI 26 cm LVOT VTI/AV VTI Ratio 1.0 LVOT Stroke Volume 81 ml LVOT CO 16.2 l/min LVOT CI 8.3 l/min/m2 Pulmonic Valve Name Value Normal PV Doppler PV Peak Gradient 3 mmHg Mitral Valve Name Value Normal MV Doppler MV Decel [place]
[2020-06-05 10:28] LABS: Vitamin D 25 Hydroxy < 12.8 ng/mL
--- NOTE | 2020-06-05 13:48 | PM.CNCAR ---
Assessment and Plan Assessment and plan (1) History of transient ischemic attack and cerebral infarction: Code(s): Z86.73 - Personal history of transient ischemic attack (TIA), and cerebral infarction without residual deficits Status: Chronic Assessment and Plan: she is currently on Plavix, but if it is okay to stop it for few days in case she needs to go for surgery (2) Essential (primary) hypertension: Code(s): I10 - Essential (primary) hypertension Status: Chronic Assessment and Plan: currently she is on valsartan 320, and hydralazine p.r.n., will add Norvasc 5 mg p.o. daily for better blood pressure control (3) Closed traumatic nondisplaced fracture of distal end of right fibula: Code(s): S82.831A - Other fracture of upper and lower end of right fibula, initial encounter for closed fracture Status: Acute Assessment and Plan: she needs preoperative cardiac evaluation, will get echocardiogram to evaluate current left ventricular systolic function look for any other structural heart disease, she had a stress test with Lexiscan in the past few years which was negative, does not have active chest pain and no angina, she should be okay if her echocardiogram is unremarkable. Okay to hold Plavix for possible surgery (4) Fall: Code(s): W19.XXXA - Unspecified fall, initial encounter Status: Acute (5) Bilateral carotid artery disease: Code(s): I73.9 - Peripheral vascular disease, unspecified Status: Chronic Assessment and Plan: status post carotid endarterectomy, no recent dizziness (6) Dyslipidemia: Code(s): E78.5 - Hyperlipidemia, unspecified Status: Acute Assessment and Plan: she is on Lipitor continue with that, will check lipid profile and treat according Additional Plan Thank you for allowing me to participate in this patient's care, I will be following up with you. Please do not hesitate to call me for any other inquiry History of Present Illness History of Present Illness Consult date/time: 06/05/20 13:48 80 years old lady with history of hypertension, history of stroke in the past and history of carotid artery stenosis status post bilateral carotid artery endarterectomy, was admitted to hospital due to fall and noted to have right fibula fracture, I was asked to see her for preoperative cardiac evaluation in view of using of Plavix and significant risk factors for coronary disease. She had history of hypertension but no history of chest pain, and no history of congestive heart failure, she had a stress test few years ago here in this hospital which was negative. She had history of carotid artery disease and she had bilateral conductive back in 2004. She was relatively active until recently she had history of fall. According to her when she was falling she was not having syncope, she was awake while falling, but when she fell down she could not stand up due to weakness of her legs. Currently she feels okay, no significant shortness of breath, no chest pain no palpitation no dizziness Reason For Visit: Fall Review of Systems Constitutional: Constitutional: Reports fatigue and Reports lethargy Respiratory: Respiratory: Reports dyspnea on exertion Gastrointestinal: Gastrointestinal: Denies heartburn, Denies diarrhea, Denies nausea, Denies vomiting and Denies hematemesis PMFSH Past Medical History Medical History Anxiety and depression Chronic midline low back pain without sciatica Depression with anxiety Essential (primary) hypertension Gastroesophageal reflux disease History of transient ischemic attack and cerebral infarction Hypothyroidism (acquired) Low vitamin B12 level Mixed hyperlipidemia Osteoarthritis Restless legs syndrome Urge incontinence of urine Vitamin D deficiency Surgical History Surgical History (Reviewed 06/05/20 @ 13:50 by Denisse Martin
[2020-06-05] MEDS: amLODIPine BESYLATE 5 MG TABLET PO (14:18)
[2020-06-06] VITALS (8 sets, daily range): BP systolic 95–149; BP diastolic 46–78; PULSE 69–94; RESP 16; TEMP 36.6–37.1; O2SAT 94–98
[2020-06-06 05:42] LABS: Basophils Absolute Auto 0.1 K/mm3 (0.0-0.1); Basophils Percent Auto 0.5 % (0.2-1.2); Eosinophils Absolute Auto 0.3 K/mm3 (0-0.3); Eosinophils Percent Auto 2.5 % (0-4.4); Hematocrit 40.1 % (37.0-47.0); Hemoglobin 12.8 g/dL (12.0-15.0); Immature Granulocyte Absolute 0.04 K/mm3 (0.00-0.031); Immature Granulocyte Percent A 0.4 % (0-0.5); Lymphocytes Absolute Auto 2.18 K/mm3 (0.9-3.2); Lymphocytes Percent Auto 19.7 % (18.3-44.2); Mean Corpuscular HGB Conc 31.9 g/dl (32-36); Mean Corpuscular Hemoglobin 27.3 pg (26-34); Mean Corpuscular Volume 85.5 fl (80-100); Mean Platelet Volume 9.8 fl (7.4-10.4); Monocytes Absolute Auto 1.2 K/mm3 (0.1-0.6); Monocytes Percent Auto 10.7 % (2.6-8.5); Neutrophils Absolute Auto 7.3 K/mm3 (1.3-6.7); Neutrophils Percent Auto 66.2 % (45.5-73.1); Platelet Count Result 480 k/mm3 (150-375); Red Blood Count 4.69 M/mm3 (4.2-5.4); Red Cell Distribution Width 15.5 % (11.5-14.5); White Blood Count 11.1 K/mm3 (4.5-10.0)
[2020-06-06] MEDS: LEVOTHYROXINE SODIUM 125 MCG TABLET PO (05:43)
[2020-06-06 05:51] LABS: Anion Gap 7 mmol/L (8-16); Blood Urea Nitrogen 8 mg/dL (7-17); Calcium 8.9 mg/dL (8.4-10.2); Carbon Dioxide 30 mmol/L (22-30); Chloride 95 mmol/L (98-107); Estimated CRCL calculation 75 ml/min; Estimated Glomerular Filt Rate > 60; Glucose 90 mg/dL (65-105); Magnesium 1.9 mg/dL (1.6-2.3); Potassium 4.1 mmol/L (3.4-5.0); Sodium 132 mmol/L (137-145)
[2020-06-06] MEDS: ASPIRIN 81 MG CHEWABLE TABLET PO (08:39)
[2020-06-06] MEDS: VALSARTAN 160 MG TABLET 320 MG PO (08:39)
[2020-06-06] MEDS: rOPINIRole HCL 1 MG TABLET 2 MG PO ×2 (08:39→16:29)
[2020-06-06] MEDS: SOLIFENACIN 5 MG TABLET PO (08:40)
[2020-06-06] MEDS: buPROPion HCL XL (24 HR) 150 MG TABCR 300 MG PO (08:40)
[2020-06-06] MEDS: POTASSIUM CHLORIDE 10 MEQ TABLET.ER PO (08:40)
[2020-06-06] MEDS: FUROSEMIDE 80 MG TABLET PO (08:41)
[2020-06-06] MEDS: ATORVASTATIN 10 MG TABLET PO (08:42)
[2020-06-06 09:23] LABS: Free T4 Free Thyroxine Reflex 0.82 ng/dL (0.78-2.19)
--- NOTE | 2020-06-06 09:30 | PM.PNCARD ---
Progress Note: A&P Assessment and Plan (1) History of transient ischemic attack and cerebral infarction: Code(s): Z86.73 - Personal history of transient ischemic attack (TIA), and cerebral infarction without residual deficits Status: Chronic Assessment and Plan: she is currently on Plavix, but if it is okay to stop it for few days in case she needs to go for surgery (2) Essential (primary) hypertension: Code(s): I10 - Essential (primary) hypertension Status: Chronic Assessment and Plan: well controlled cont current meds (3) Closed traumatic nondisplaced fracture of distal end of right fibula: Code(s): S82.831A - Other fracture of upper and lower end of right fibula, initial encounter for closed fracture Status: Acute Assessment and Plan: she needs preoperative cardiac evaluation ECHO showed normal LV systolic function she had a stress test with Lexiscan in the past few years which was negative does not have active chest pain and no angina she has low risk for low risk surgery (4) Gait instability: Code(s): R26.81 - Unsteadiness on feet Status: Chronic Subjective Date/time seen: 06/06/20 09:30 Pt was seen and examined, chart reviewed, d/w pt's nurse. Pt feels fine today. no complains. Review of Systems Review of Systems: All systems reviewed & are unremarkable except as noted in HPI and below Constitutional: Constitutional: Reports as per HPI Eyes: Eyes: Reports as per HPI ENT: Reports system reviewed and no additional complaints, except as documented and Reports as per HPI Cardiovascular: Cardiovascular: Reports as per HPI Respiratory: Respiratory: Reports as per HPI Gastrointestinal: Gastrointestinal: Reports as per HPI Genitourinary: Genitourinary: Reports as per HPI Musculoskeletal: Musculoskeletal: Reports as per HPI Exam Const: General: no acute distress Nutritional Appearance: well nourished Orientation/consciousness: patient oriented x3 HENMT: Head: normal to inspection and atraumatic Ears: hearing grossly normal bilaterally Face and sinus: normal facial exam Eyes: General: appearance normal, both eyes and all related structures Pupils: Equal, round and reactive pupils present EOM: EOMs intact bilaterally Neck: Neck: supple Chest: Chest palpation & inspection: normal inspection of the chest Resp: Effort & Inspection: normal respiratory effort and no respiratory distress Auscultation: clear to auscultation bilaterally Cardio: Jugular venous distension: no JVD Rate: regular rate Heart sounds: S1 normal heart sound present, S2 normal heart sound present and no murmurs Peripheral pulses: Peripheral pulses 2+ throughout GI: GI Palp: No abdominal tenderness Auscultation: normal bowel sounds Skin: General skin exam: normal color Neuro: General: patient oriented x3 Cranial nerves: Yes Equal, round and reactive pupils present Extrem: General: normal to inspection and no clubbing, cyanosis or edema Objective Data Vital Signs Vital Signs: Vital Signs - 24 hr 06/05/20 12:00 06/05/20 14:00 06/05/20 16:00 Temperature 36.4 C Pulse Rate 73 80 78 Respiratory Rate 18 Blood Pressure 147/58 H Pulse Oximetry 94 06/05/20 20:00 06/05/20 22:32 06/06/20 00:00 Temperature 36.6 C Pulse Rate 72 80 86 Respiratory Rate Blood Pressure 164/68 H Pulse Oximetry 96 06/06/20 04:00 06/06/20 06:43 06/06/20 08:50 Temperature 36.6 C Pulse Rate 75 83 94 Respiratory Rate 16 Blood Pressure 95/78 L 141/56 H Pulse Oximetry 98 Intake/Output Intake/Output: Intake & Output 06/03/20 06/04/20 06/05/20 06/06/20 23:59 23:59 23:59 23:59 Intake Total 1100 1200 560 Output Total 450 1050 Balance 650 150 560 Meds/Results Medications: Active Medications Generic Name Dose Route Start Last Admin Trade Name Freq PRN Reason Stop Dose Admin Amlodipine Besylate 5 mg 06/05/20 14:00
[2020-06-06] MEDS: amLODIPine BESYLATE 5 MG TABLET PO (09:53)
[2020-06-06 10:17] LABS: Total Triiodothyronine (T3) 0.71 NG/ML (0.97-1.69)
--- NOTE | 2020-06-06 11:53 | PM.IMPN ---
Progress Note: A&P Assessment and Plan (1) Closed traumatic nondisplaced fracture of distal end of right fibula: Code(s): S82.831A - Other fracture of upper and lower end of right fibula, initial encounter for closed fracture Status: Acute Assessment and Plan: Patient presents after a fall at home; imaging shows right fibular distal metaphysis oblique fracture into the distal tibiofibular syndesmosis. Discussed with GIOVANNA Deleon yesterday plan for surgical intervention possibly Tuesday after Plavix washout. Last dose of Plavix was 06/05/10. Cardiology was consulted for perioperative risk assessment given her history of CVA. Echocardiogram results noted. Further management orthopedic surgery - appreciate recommendations. Right lower extremity [id number] is casted. (2) Gait instability: Code(s): R26.81 - Unsteadiness on feet Status: Chronic Assessment and Plan: Patient admits she has been having trouble getting around lately at home, previously fell a few weeks ago. PT/OT evaluations appreciated and I suspect she may benefit from rehab following surgery. Unfortunately I don't think it would be safe for her to discharge home prior to having surgery and plan is to stay inpatient until surgery performed hopefully early next week. (3) Essential (primary) hypertension: Code(s): I10 - Essential (primary) hypertension Status: Chronic Assessment and Plan: Blood pressures reviewed; initially hypertensive on arrival, now BPs on lower end. Continue home valsartan, monitor BP and adjust treatment as needed. (4) Bilateral carotid artery disease: Code(s): I73.9 - Peripheral vascular disease, unspecified Status: Chronic Assessment and Plan: Patient has known bilateral carotid artery disease with history of bilateral endarterectomies in the remote past. Given questionable syncope, carotid Dopplers were obtained and are within normal limits. Continue her ASA. (5) Hypothyroidism (acquired): Code(s): E03.9 - Hypothyroidism, unspecified Status: Chronic Assessment and Plan: TSH is 16. Her home levothyroxine increased today. Recommend following up with PCP in 6 weeks for recheck labs. (6) History of transient ischemic attack and cerebral infarction: Code(s): Z86.73 - Personal history of transient ischemic attack (TIA), and cerebral infarction without residual deficits Status: Chronic Assessment and Plan: History of CVA / TIA in the past on ASA and Plavix. We will stop the Plavix in light of her need for surgical intervention. Subjective Date/time seen: 06/06/20 1030 Interval history: Ms. Snider is an 80yo F admitted for right ankle fracture. She reports feeling unwell this morning due to nausea. She denies chest pain, palpitations, cough, or shortness of breath. She tolerated breakfast without nausea or vomiting. Review of Systems Review of Systems: Narrative: Twelve systems were reviewed with pertinent positives and negatives as per HPI. Exam Narrative: Exam Narrative: General: Female resting sitting up in bedside chair in no acute distress. HEENT: Normocephalic, mild ecchymosis to right forehead without open laceration, EOMI, oral mucosa moist. Chest: Lungs clear to auscultation all coppola. Respirations are even and nonlabored. Tolerating room air. Heart: Heart rate and rhythm regular. Telemetry review shows sinus rhythm, HR 76 bpm. Abdomen: Soft, nontender, nondistended, bowel sounds present. Extremities: Peripheral pulses intact x4; R lower extremity casted; neurovascularly intact. Neurologic: Alert and oriented. No focal neurological deficits noted. Spee
[2020-06-06] MEDS: ONDANSETRON INJ 4 MG/2 ML VIAL IV PUSH (11:59)
--- NOTE | 2020-06-06 17:18 | PM.PNORT ---
Progress Note: A&P Additional Plan Patient is day 2. After admission with right Harrison C distal fibular fracture with mild displacement. Stress view yesterday showed only mild widening of medial clear space to 4.1 mm versus 2.9 mm superior clear space which meets criteria Re up for instability with a Harrison B fracture which is a milder fracture. In addition there is widening of the syndesmotic clear space and shortening of the fibula which is demonstrated on comparison of her initial views nonstress views and x-rays of her left ankle obtained today. She has static widening of the medial clear space of the right ankle compared to the left also. These findings indicate open reduction internal fixation with syndesmotic fixation of her right ankle in a patient who was stable medically and ambulates. She does live alone at home and she would like to continue to do so. She does get some confusion the evening prior history. She is alert and oriented at this time and I have discussed these findings with her and she would like to proceed as soon as possible. I would recommend we wait 5 days. She had her last Plavix yesterday and I am going to see about scheduling the surgery for possibly Tuesday. She will keep the leg elevated. She did have the carotid ultrasound yesterday which showed less than 50% stenosis bilaterally and she had an echocardiogram and I noted the results and we are waiting the rubber goods inspector tester's recommendations. If she is considered high risk for cardiac complications with surgery I would recommend treating this nonsurgically and except the fact that she will develop posttraumatic osteoarthritis of the ankle. However if she is felt to be at normal risk for someone her age then internal fixation would allow the facets recovery fast this time to full weight-bearing and minimize risk of posttraumatic arthritis barring any complications. The cast is quite comfortable today is well-padded. She does have slight external rotation deformity of her right foot relative to the knee. Subjective Subjective Date/Time Seen: 06/06/20 17:18 Objective Data Vital Signs Vital Signs: Vital Signs - 24 hr 06/05/20 20:00 06/05/20 22:32 06/06/20 00:00 Temperature 36.6 C Pulse Rate 72 80 86 Respiratory Rate Blood Pressure 164/68 H Pulse Oximetry 96 06/06/20 04:00 06/06/20 06:43 06/06/20 08:00 Temperature 36.6 C Pulse Rate 75 83 81 Respiratory Rate 16 Blood Pressure 95/78 L Pulse Oximetry 98 06/06/20 08:42 06/06/20 08:50 06/06/20 15:40 Temperature 36.6 C Pulse Rate 92 94 74 Respiratory Rate 16 16 Blood Pressure 141/56 H 116/46 L Pulse Oximetry 98 98 Intake/Output Intake/Output: Intake & Output 06/03/20 06/04/20 06/05/20 06/06/20 23:59 23:59 23:59 23:59 Intake Total 1100 1200 800 Output Total 450 1050 Balance 650 150 800 Meds/Results Medications: Active Medications Generic Name Dose Route Start Last Admin Trade Name Freq PRN Reason Stop Dose Admin Amlodipine Besylate 5 mg 06/05/20 14:00 06/06/20 09:53 Norvasc PO 5 mg DAILY XENIA Administration Aspirin 81 mg 06/05/20 09:00 06/06/20 08:39 Aspirin Chewable PO 81 mg DAILY XENIA Administration Atorvastatin Calcium 10 mg 06/05/20 09:00 06/06/20 08:42 Lipitor PO 10 mg DAILY XENIA Administration Bupropion HCl 300 mg 06/05/20 09:00 06/06/20 08:40 Wellbutrin Xl (24 Hr) PO 300 mg QAM XENIA Administration Furosemide 80 mg 06/05/20 09:00 06/06/20 08:41 Lasix Tablet PO 80 mg QAM XENIA Administration Hydralazine HCl 10 mg 06/05/20 12:13 Apresoline Hcl Inj IV PUSH Q8H PRN Blood Pressure - High Levothyroxine Sodium 150 mcg 06/07/20 06:30 Synthroid PO DAILY@0630 [facility] Ondansetron HCl 4 mg 06/06/20 11:20 06/06/20 11:59 Zofran Inj IV PUSH 4 mg Q6H PRN Administration Nausea And Vomiting Potassium Chloride 10 meq 06/05/20 09:00 06/06/20 08:40 Kcl Tablet PO
[2020-06-06] MEDS: traMADol HCL 50 MG TABLET 100 MG PO (23:08)
[2020-06-07 05:42] VITALS: BP 153/66; PULSE 68; RESP 16; TEMP 36.4; O2SAT 98
[2020-06-07] MEDS: LEVOTHYROXINE SODIUM 150 MCG TABLET PO (06:04)
[2020-06-07 07:20] LABS: Potassium 3.9 mmol/L (3.4-5.0)
[2020-06-07 08:00] VITALS: PULSE 68; RESP 16; O2SAT 98
--- NOTE | 2020-06-07 08:56 | PM.PNCARD ---
Progress Note: A&P Assessment and Plan (1) Closed traumatic nondisplaced fracture of distal end of right fibula: Code(s): S82.831A - Other fracture of upper and lower end of right fibula, initial encounter for closed fracture Status: Acute Assessment and Plan: Echo showed normal LV systolic function and no significant valvular disease She has history of peripheral vascular disease s/p bilateral endarterectomy (8 and 10 years ago). Stable She is also on lasix as outpatient, probably for diastolic CHF. Appears well compensated from that standpoint She had a stress test with Lexiscan in the past few years which was negative She should have acceptable risk to undergo surgery. That is planned next week (once off Plavix for 5 days) does not have active chest pain and no angina (2) History of transient ischemic attack and cerebral infarction: Code(s): Z86.73 - Personal history of transient ischemic attack (TIA), and cerebral infarction without residual deficits Status: Chronic Assessment and Plan: Okay to hold Plavix. Resume post operatively if no bleeding complications (3) Essential (primary) hypertension: Code(s): I10 - Essential (primary) hypertension Status: Chronic Assessment and Plan: Markedly elevated on admission. Norvasc added. BP control Better overall now. Subjective Date/time seen: 06/07/20 08:56 No overnight events. Denies chest pain or dyspnea. Review of Systems Review of Systems: All systems reviewed & are unremarkable except as noted in HPI and below Constitutional: Constitutional: Reports as per HPI, Reports fatigue and Reports lethargy Eyes: Eyes: Reports as per HPI ENT: Reports system reviewed and no additional complaints, except as documented and Reports as per HPI Cardiovascular: Cardiovascular: Reports as per HPI and Reports dyspnea on exertion Respiratory: Respiratory: Reports as per HPI and Reports dyspnea on exertion Gastrointestinal: Gastrointestinal: Reports as per HPI, Denies heartburn, Denies diarrhea, Denies nausea, Denies vomiting and Denies hematemesis Genitourinary: Genitourinary: Reports as per HPI Musculoskeletal: Musculoskeletal: Reports as per HPI Endocrine: Endocrine: Reports fatigue Exam Narrative: Exam Narrative: Awake alert oriented x3 not in acute distress Neck is supple no obvious JVD, no carotid bruit, she has scar from both carotid surgery Chest: Good air entry bilaterally, lungs are clear to auscultation and percussion bilaterally Cardiovascular: Regular rate and rhythm, 2/6 systolic murmur noted left sternal border Abdomen: Soft nontender bowel sounds positive Extremities: No edema has good pulses distally bilaterally Const: General: no acute distress Nutritional Appearance: well nourished Orientation/consciousness: patient oriented x3 HENMT: Head: normal to inspection and atraumatic Ears: hearing grossly normal bilaterally Face and sinus: normal facial exam Eyes: General: appearance normal, both eyes and all related structures Pupils: Equal, round and reactive pupils present EOM: EOMs intact bilaterally Neck: Neck: supple Chest: Chest palpation & inspection: normal inspection of the chest Resp: Effort & Inspection: normal respiratory effort and no respiratory distress Auscultation: clear to auscultation bilaterally Cardio: Jugular venous distension: no JVD Rate: regular rate Heart sounds: S1 normal heart sound present, S2 normal heart sound present and no murmurs Peripheral pulses: Peripheral pulses 2+ throughout GI: Auscultation: normal bowel sounds Skin: General skin exam: normal color Neuro: General: patient oriented x3 Cranial nerves: Yes Equal, round and reactive pupils present Extrem: General: normal to inspection and no clubbing, cyanosis or edema Objective Data Vital Signs Vital Signs: Vital Signs - 24 hr 06/06/20 15:40 06/06/20 20:46 06/07/20 05:42 Temperature 36.6 C 37
[2020-06-07] MEDS: VALSARTAN 160 MG TABLET 320 MG PO (09:21)
[2020-06-07] MEDS: rOPINIRole HCL 1 MG TABLET 2 MG PO ×2 (09:22→18:11)
[2020-06-07] MEDS: ATORVASTATIN 10 MG TABLET PO (09:22)
[2020-06-07] MEDS: buPROPion HCL XL (24 HR) 150 MG TABCR 300 MG PO (09:22)
[2020-06-07] MEDS: POTASSIUM CHLORIDE 10 MEQ TABLET.ER PO (09:22)
[2020-06-07] MEDS: ASPIRIN 81 MG CHEWABLE TABLET PO (09:22)
[2020-06-07] MEDS: amLODIPine BESYLATE 5 MG TABLET PO (09:22)
[2020-06-07] MEDS: SOLIFENACIN 5 MG TABLET PO (09:22)
[2020-06-07] MEDS: FUROSEMIDE 80 MG TABLET PO (09:22)
--- NOTE | 2020-06-07 13:01 | PM.IMPN ---
Progress Note: A&P Assessment and Plan (1) Closed traumatic nondisplaced fracture of distal end of right fibula: Code(s): S82.831A - Other fracture of upper and lower end of right fibula, initial encounter for closed fracture Status: Acute Assessment and Plan: Patient presents after a fall at home; imaging shows right fibular distal metaphysis oblique fracture into the distal tibiofibular syndesmosis. Dr Girish petit - appreciate recommendations. Plan is for surgical intervention next after Plavix washout. Last dose of Plavix was 06/05/10. Cardiology was consulted for perioperative risk assessment given her history of CVA. Echocardiogram results noted. Further management orthopedic surgery - appreciate recommendations. Right lower extremity [id number] is casted. (2) Gait instability: Code(s): R26.81 - Unsteadiness on feet Status: Chronic Assessment and Plan: Patient admits she has been having trouble getting around lately at home, previously fell a few weeks ago. PT/OT evaluations appreciated and I suspect she may benefit from rehab following surgery. Unfortunately I don't think it would be safe for her to discharge home prior to having surgery and plan is to stay inpatient until surgery performed hopefully early next week. (3) Essential (primary) hypertension: Code(s): I10 - Essential (primary) hypertension Status: Chronic Assessment and Plan: Blood pressures reviewed and are variable. Continue home valsartan, monitor BP and adjust treatment as needed. (4) Bilateral carotid artery disease: Code(s): I73.9 - Peripheral vascular disease, unspecified Status: Chronic Assessment and Plan: Patient has known bilateral carotid artery disease with history of bilateral endarterectomies in the remote past. Given questionable syncope, carotid Dopplers were obtained and are within normal limits. Continue her ASA. (5) Hypothyroidism (acquired): Code(s): E03.9 - Hypothyroidism, unspecified Status: Chronic Assessment and Plan: TSH is 16. Her home levothyroxine increased. Recommend following up with PCP in 6 weeks for recheck labs. (6) History of transient ischemic attack and cerebral infarction: Code(s): Z86.73 - Personal history of transient ischemic attack (TIA), and cerebral infarction without residual deficits Status: Chronic Assessment and Plan: History of CVA / TIA in the past on ASA and Plavix. Plavix held in light of her need for surgical intervention. Subjective Date/time seen: 06/07/20 1130 Interval history: Ms. Snider is an 80yo F admitted for right ankle fracture. She is feeling a bit better than yesterday. No acute events overnight. She denies any chest pain, shortness of breath, or cough. She is tolerating oral intake without nausea vomiting. Right ankle pain is well controlled this morning Review of Systems Review of Systems: Narrative: Twelve systems were reviewed with pertinent positives and negatives as per HPI. Exam Narrative: Exam Narrative: General: Female resting sitting up in bed in no acute distress. HEENT: Normocephalic, mild ecchymosis to right forehead without open laceration, EOMI, oral mucosa moist. Chest: Lungs clear to auscultation all coppola. Respirations are even and nonlabored. Tolerating room air. Heart: Heart rate and rhythm regular. Telemetry review shows sinus rhythm, HR 72 bpm. Abdomen: Soft, nontender, nondistended, bowel sounds present. Extremities: Peripheral pulses intact x4; R lower extremity casted; neurovascularly intact. Neurologic: Alert and oriented. No focal neurological deficits noted. S
[2020-06-07 14:00] VITALS: BP 142/52; PULSE 71; RESP 16; TEMP 36.4; O2SAT 99
[2020-06-07 14:05] LABS: Add Urine Microscopic? YES; Appearance Urine Cloudy (Clear); Bacteria Urine Trace /hpf; Bilirubin Urine Negative (Negative); Blood Urine 3+ (Negative); Color Urine Yellow (Yellow); Glucose Urine UA Negative (Negative); Ketones Urine Negative (Negative); Leukocyte Esterase Ur Trace LEU/UL (Negative); Mucus Urine Rare /lpf; Nitrate Urine Negative (Negative); Protein Urine Negative (Negative); RBC Urine 21-50 /hpf (0-2); Specific Grav Ur 1.009 (1.001-1.035); Squamous Epithelial Cell Urine Occasional /hpf (Few); Urobilinogen Urine Negative mg/dL (<2.0)
--- NOTE | 2020-06-07 15:05 | PM.PNORT ---
Progress Note: A&P Additional Plan Cardiologists note from today is reviewed and there opinion was that the patient is stable from a cardiac standpoint to proceed with surgery based on the echocardiogram result and her previous stress test. Diagnosis is mildly displaced Harrison C distal fibular fracture with medial malleolus avulsion fracture (bimalleolar Harrison C ankle fracture ) I spoke with the house worker general. She had her last dose of Plavix morning therefore we could do the surgery late in the day Tuesday at 4 or 430 and I am available at 3:30 a.m. on Tuesday and 330 on afternoon. Patient was advised of the plan. The surgery will consist of open reduction internal fixation of distal fibular shaft fracture right ankle with syndesmotic stabilization with an Arthrex tight rope device. Subjective Subjective Date/Time Seen: 06/07/20 15:05 Objective Data Vital Signs Vital Signs: Vital Signs - 24 hr 06/06/20 15:40 06/06/20 20:46 06/07/20 05:42 Temperature 36.6 C 37.1 C 36.4 C Pulse Rate 74 69 68 Respiratory Rate 16 16 16 Blood Pressure 116/46 L 149/60 H 153/66 H Pulse Oximetry 98 94 98 06/07/20 08:00 06/07/20 14:00 Temperature 36.4 C L Pulse Rate 68 71 Respiratory Rate 16 16 Blood Pressure 142/52 H Pulse Oximetry 98 99 Intake/Output Intake/Output: Intake & Output 06/04/20 06/05/20 06/06/20 06/07/20 23:59 23:59 23:59 23:59 Intake Total 1100 1200 1200 440 Output Total 450 1050 325 625 Balance 650 150 875 -185 Meds/Results Medications: Active Medications Generic Name Dose Route Start Last Admin Trade Name Freq PRN Reason Stop Dose Admin Amlodipine Besylate 5 mg 06/05/20 14:00 06/07/20 09:22 Norvasc PO 5 mg DAILY XENIA Administration Aspirin 81 mg 06/05/20 09:00 06/07/20 09:22 Aspirin Chewable PO 81 mg DAILY XENIA Administration Atorvastatin Calcium 10 mg 06/05/20 09:00 06/07/20 09:22 Lipitor PO 10 mg DAILY XENIA Administration Bupropion HCl 300 mg 06/05/20 09:00 09/12/20 09:22 Wellbutrin Xl (24 Hr) PO 300 mg QAM XENIA Administration Furosemide 80 mg 06/05/20 09:00 06/07/20 09:22 Lasix Tablet PO 80 mg QAM XENIA Administration Hydralazine HCl 10 mg 06/05/20 12:13 Apresoline Hcl Inj IV PUSH Q8H PRN Blood Pressure - High Levothyroxine Sodium 150 mcg 06/07/20 06:30 06/07/20 06:04 Synthroid PO 150 mcg DAILY@0630 XENIA Administration Ondansetron HCl 4 mg 06/06/20 11:20 06/06/20 11:59 Zofran Inj IV PUSH 4 mg Q6H PRN Administration Nausea And Vomiting Potassium Chloride 10 meq 06/05/20 09:00 06/07/20 09:22 Kcl Tablet PO 10 meq DAILY XENIA Administration Ropinirole HCl 2 mg 06/04/20 23:50 06/07/20 09:22 Requip PO 2 mg BID XENIA Administration Solifenacin 5 mg 06/05/20 09:00 06/07/20 09:22 Vesicare PO 5 mg DAILY XENIA Administration Tizanidine HCl 4 mg 06/04/20 23:35 Zanaflex PO BID PRN muscle spasticity Tramadol HCl 100 mg 06/04/20 23:47 06/06/20 23:08 Ultram PO 100 mg Q6H PRN Administration Pain Rated 4-6 Valsartan 320 mg 06/05/20 09:00 06/07/20 09:21 Diovan PO 320 mg DAILY XENIA Administration Radiology Results: ITS Impressions Cervical Spine CT 06/04/20 19:04 IMPRESSION: 1. No acute intracranial findings or cervical fracture. 2. Advanced cervical spondylosis. 3. Old left external capsular, basal ganglia lacunar infarction. 4. Age-related intracranial findings. 5. Resolving right frontal scalp hematoma. Head CT 06/04/20 19:04 IMPRESSION: 1. No acute intracranial findings or cervical fracture. 2. Advanced cervical spondylosis. 3. Old left external capsular, basal ganglia lacunar infarction. 4. Age-related intracranial findings. 5. Resolving right frontal scalp hematoma. Chest X-Ray 06/04/20 19:13 IMPRESSION: Elevated right hemidiaphragm, possible paralysis. No acute car
[2020-06-07 22:00] VITALS: BP 141/52; PULSE 68; RESP 18; TEMP 36.4; O2SAT 97
[2020-06-08 06:00] VITALS: BP 147/52; PULSE 67; RESP 18; TEMP 36.3; O2SAT 96
[2020-06-08] MEDS: LEVOTHYROXINE SODIUM 150 MCG TABLET PO (06:21)
[2020-06-08 06:23] LABS: Basophils Absolute Auto 0.1 K/mm3 (0.0-0.1); Basophils Percent Auto 0.6 % (0.2-1.2); Eosinophils Absolute Auto 0.2 K/mm3 (0-0.3); Hematocrit 44.7 % (37.0-47.0); Hemoglobin 14.3 g/dL (12.0-15.0); Immature Granulocyte Absolute 0.05 K/mm3 (0.00-0.031); Immature Granulocyte Percent A 0.4 % (0-0.5); Lymphocytes Absolute Auto 1.93 K/mm3 (0.9-3.2); Mean Corpuscular Hemoglobin 27.3 pg (26-34); Mean Corpuscular Volume 85.3 fl (80-100); Mean Platelet Volume 9.6 fl (7.4-10.4); Monocytes Absolute Auto 1.2 K/mm3 (0.1-0.6); Neutrophils Absolute Auto 8.6 K/mm3 (1.3-6.7); Platelet Count Result 458 k/mm3 (150-375); Red Blood Count 5.24 M/mm3 (4.2-5.4); Red Cell Distribution Width 15.5 % (11.5-14.5); White Blood Count 12.1 K/mm3 (4.5-10.0)
[2020-06-08 06:43] LABS: Anion Gap 9 mmol/L (8-16); Blood Urea Nitrogen 12 mg/dL (7-17); Calcium 9.2 mg/dL (8.4-10.2); Carbon Dioxide 27 mmol/L (22-30); Chloride 94 mmol/L (98-107); Estimated CRCL calculation 64 ml/min; Estimated Glomerular Filt Rate > 60; Glucose 93 mg/dL (65-105); Potassium 3.8 mmol/L (3.4-5.0); Sodium 130 mmol/L (137-145)
[2020-06-08] MEDS: traMADol HCL 50 MG TABLET 100 MG PO (09:32)
[2020-06-08] MEDS: rOPINIRole HCL 1 MG TABLET 2 MG PO ×2 (09:33→16:22)
[2020-06-08] MEDS: ASPIRIN 81 MG CHEWABLE TABLET PO (09:33)
[2020-06-08] MEDS: VALSARTAN 160 MG TABLET 320 MG PO (09:34)
[2020-06-08] MEDS: SOLIFENACIN 5 MG TABLET PO (09:34)
[2020-06-08] MEDS: FUROSEMIDE 80 MG TABLET PO (09:35)
[2020-06-08] MEDS: amLODIPine BESYLATE 5 MG TABLET PO (09:35)
[2020-06-08] MEDS: ATORVASTATIN 10 MG TABLET PO (09:35)
[2020-06-08] MEDS: POTASSIUM CHLORIDE 10 MEQ TABLET.ER PO (09:35)
[2020-06-08] MEDS: buPROPion HCL XL (24 HR) 150 MG TABCR 300 MG PO (09:36)
[2020-06-08 09:42] VITALS: PULSE 67; RESP 18; O2SAT 96
--- NOTE | 2020-06-08 10:24 | PM.PNCARD ---
Progress Note: A&P Assessment and Plan (1) Closed traumatic nondisplaced fracture of distal end of right fibula: Code(s): S82.831A - Other fracture of upper and lower end of right fibula, initial encounter for closed fracture Status: Acute Assessment and Plan: Patient is seen for pre op risk assessment Echo showed normal LV systolic function and no significant valvular disease She has history of peripheral vascular disease s/p bilateral endarterectomy (8 and 10 years ago). Stable She is also on lasix as outpatient, probably for diastolic CHF. Appears well compensated from that standpoint She had a stress test with Lexiscan in the past few years which was negative She should have acceptable risk to undergo surgery. That is planned next week (once off Plavix for 5 days) does not have active chest pain and no angina (2) History of transient ischemic attack and cerebral infarction: Code(s): Z86.73 - Personal history of transient ischemic attack (TIA), and cerebral infarction without residual deficits Status: Chronic Assessment and Plan: Okay to hold Plavix. Resume post operatively if no bleeding complications (3) Essential (primary) hypertension: Code(s): I10 - Essential (primary) hypertension Status: Chronic Assessment and Plan: Markedly elevated on admission. Norvasc added. BP control Better overall now. Consider increase Norvasc dose to 10 mg Additional Plan Thank you for allowing me to participate in this patient's care, I will be following up with you. Please do not hesitate to call me for any other inquiry Subjective Date/time seen: 06/08/20 10:24 No overnight events. Denies chest pain or dyspnea Review of Systems Review of Systems: All systems reviewed & are unremarkable except as noted in HPI and below Constitutional: Constitutional: Reports as per HPI, Reports fatigue and Reports lethargy Eyes: Eyes: Reports as per HPI ENT: Reports system reviewed and no additional complaints, except as documented and Reports as per HPI Cardiovascular: Cardiovascular: Reports as per HPI and Reports dyspnea on exertion Respiratory: Respiratory: Reports as per HPI and Reports dyspnea on exertion Gastrointestinal: Gastrointestinal: Reports as per HPI, Denies heartburn, Denies diarrhea, Denies nausea, Denies vomiting and Denies hematemesis Genitourinary: Genitourinary: Reports as per HPI Musculoskeletal: Musculoskeletal: Reports as per HPI Endocrine: Endocrine: Reports fatigue Exam Narrative: Exam Narrative: Awake alert oriented x3 not in acute distress Neck is supple no obvious JVD, no carotid bruit, she has scar from both carotid surgery Chest: Good air entry bilaterally, lungs are clear to auscultation and percussion bilaterally Cardiovascular: Regular rate and rhythm, 2/6 systolic murmur noted left sternal border Abdomen: Soft nontender bowel sounds positive Extremities: No edema has good pulses distally bilaterally Const: General: no acute distress Nutritional Appearance: well nourished Orientation/consciousness: patient oriented x3 HENMT: Head: normal to inspection and atraumatic Ears: hearing grossly normal bilaterally Face and sinus: normal facial exam Eyes: General: appearance normal, both eyes and all related structures Pupils: Equal, round and reactive pupils present EOM: EOMs intact bilaterally Neck: Neck: supple Chest: Chest palpation & inspection: normal inspection of the chest Resp: Effort & Inspection: normal respiratory effort and no respiratory distress Auscultation: clear to auscultation bilaterally Cardio: Jugular venous distension: no JVD Rate: regular rate Heart sounds: S1 normal heart sound present, S2 normal heart sound present and no murmurs Peripheral pulses: Peripheral pulses 2+ throughout GI: Auscultation: normal bowel sounds Skin: General skin exam: normal color Neuro: General: patient oriented x3 Cranial nerve
--- NOTE | 2020-06-08 11:16 | PM.IMPN ---
Progress Note: A&P Assessment and Plan (1) Closed traumatic nondisplaced fracture of distal end of right fibula: Code(s): S82.831A - Other fracture of upper and lower end of right fibula, initial encounter for closed fracture Status: Acute Assessment and Plan: Patient presents after a fall at home; imaging shows right fibular distal metaphysis oblique fracture into the distal tibiofibular syndesmosis. Dr Girish petit - appreciate recommendations. Plan is for surgical intervention this week after Plavix washout. Last dose of Plavix was 06/05/10. Cardiology was consulted for perioperative risk assessment given her history of CVA. Echocardiogram results noted. Further management orthopedic surgery - appreciate recommendations. Right lower extremity [id number] is casted. (2) Gait instability: Code(s): R26.81 - Unsteadiness on feet Status: Chronic Assessment and Plan: Patient admits she has been having trouble getting around lately at home, previously fell a few weeks ago. PT/OT evaluations appreciated and I suspect she may benefit from rehab following surgery. Unfortunately I don't think it would be safe for her to discharge home prior to having surgery and plan is to stay inpatient until surgery performed hopefully early next week. (3) Essential (primary) hypertension: Code(s): I10 - Essential (primary) hypertension Status: Chronic Assessment and Plan: Blood pressures reviewed, a bit elevated may be secondary to pain but stable today. Continue home valsartan, monitor BP and adjust treatment as needed. (4) Bilateral carotid artery disease: Code(s): I73.9 - Peripheral vascular disease, unspecified Status: Chronic Assessment and Plan: Patient has known bilateral carotid artery disease with history of bilateral endarterectomies in the remote past. Given questionable syncope, carotid Dopplers were obtained and are within normal limits. Continue her ASA. (5) Hypothyroidism (acquired): Code(s): E03.9 - Hypothyroidism, unspecified Status: Chronic Assessment and Plan: TSH is 16. Her home levothyroxine increased. Recommend following up with PCP in 6 weeks for recheck labs. (6) History of transient ischemic attack and cerebral infarction: Code(s): Z86.73 - Personal history of transient ischemic attack (TIA), and cerebral infarction without residual deficits Status: Chronic Assessment and Plan: History of CVA / TIA in the past on ASA and Plavix. Plavix held in light of her need for surgical intervention. (7) Gross hematuria: Code(s): R31.0 - Gross hematuria Status: Acute Assessment and Plan: Patient describes she recently established with Dr. West for urinary incontinence. Nursing has visualized some gross hematuria, UA demonstrates hematuria also. Patient denies flank pain. I appreciate urology consultation in this setting. Subjective Date/time seen: 06/08/20 0900 Interval history: Ms. Snider is an 80yo F admitted for right ankle fracture. She is feeling a bit better than yesterday. No acute events overnight. She denies any chest pain, shortness of breath, or cough. She is tolerating oral intake without nausea vomiting. Right ankle pain is well controlled this morning Exam Narrative: Exam Narrative: General: Female resting sitting up in bed in no acute distress. HEENT: Normocephalic, mild ecchymosis to right forehead without open laceration, EOMI, oral mucosa moist. Chest: Lungs clear to auscultation all coppola. Respirations are even and nonlabored. Tolerating room air. Hea
--- NOTE | 2020-06-08 12:43 | PM.PNORT ---
Progress Note: A&P Additional Plan I discussed with patient plans to proceed with open reduction internal fixation of distal fibular shaft fracture and syndesmotic stabilization. Tomorrow we should know when the schedule allows to proceed and I have given options for Tuesday and . Hopefully Tuesday would be available which would be 5 days after her last dose of Plavix. She is comfortable in the cast she has no swelling in the leg. She wiggles her toes denies any numbness or tingling. She has no complaints. Subjective Subjective Date/Time Seen: 06/08/20 12:43 Objective Data Vital Signs Vital Signs: Vital Signs - 24 hr 06/07/20 14:00 06/07/20 22:00 06/08/20 06:00 Temperature 36.4 C L 36.4 C 36.3 C L Pulse Rate 71 68 67 Respiratory Rate 16 18 18 Blood Pressure 142/52 H 141/52 H 147/52 H Pulse Oximetry 99 97 96 06/08/20 09:42 Temperature Pulse Rate 67 Respiratory Rate 18 Blood Pressure Pulse Oximetry 96 Intake/Output Intake/Output: Intake & Output 06/05/20 06/06/20 06/07/20 06/08/20 23:59 23:59 23:59 23:59 Intake Total 1200 1200 1080 520 Output Total 3553 167 3526 Balance 150 875 -295 520 Meds/Results Medications: Active Medications Generic Name Dose Route Start Last Admin Trade Name Freq PRN Reason Stop Dose Admin Amlodipine Besylate 5 mg 06/05/20 14:00 06/08/20 09:35 Norvasc PO 5 mg DAILY XENIA Administration Aspirin 81 mg 06/05/20 09:00 06/08/20 09:33 Aspirin Chewable PO 81 mg DAILY XENIA Administration Atorvastatin Calcium 10 mg 06/05/20 09:00 06/08/20 09:35 Lipitor PO 10 mg DAILY XENIA Administration Bupropion HCl 300 mg 06/05/20 09:00 06/08/20 09:36 Wellbutrin Xl (24 Hr) PO 300 mg QAM XENIA Administration Furosemide 80 mg 06/05/20 09:00 06/08/20 09:35 Lasix Tablet PO 80 mg QAM XENIA Administration Hydralazine HCl 10 mg 06/05/20 12:13 Apresoline Hcl Inj IV PUSH Q8H PRN Blood Pressure - High Levothyroxine Sodium 150 mcg 06/07/20 06:30 06/08/20 06:21 Synthroid PO 150 mcg DAILY@0630 XENIA Administration Ondansetron HCl 4 mg 06/06/20 11:20 06/06/20 11:59 Zofran Inj IV PUSH 4 mg Q6H PRN Administration Nausea And Vomiting Potassium Chloride 10 meq 06/05/20 09:00 06/08/20 09:35 Kcl Tablet PO 10 meq DAILY XENIA Administration Ropinirole HCl 2 mg 06/04/20 23:50 06/08/20 09:33 Requip PO 2 mg BID XENIA Administration Solifenacin 5 mg 06/05/20 09:00 06/08/20 09:34 Vesicare PO 5 mg DAILY XENIA Administration Tizanidine HCl 4 mg 06/04/20 23:35 Zanaflex PO BID PRN muscle spasticity Tramadol HCl 100 mg 06/04/20 23:47 06/08/20 09:32 Ultram PO 100 mg Q6H PRN Administration Pain Rated 4-6 Valsartan 320 mg 06/05/20 09:00 06/08/20 09:34 Diovan PO 320 mg DAILY XENIA Administration Radiology Results: ITS Impressions Cervical Spine CT 06/04/20 19:04 IMPRESSION: 1. No acute intracranial findings or cervical fracture. 2. Advanced cervical spondylosis. 3. Old left external capsular, basal ganglia lacunar infarction. 4. Age-related intracranial findings. 5. Resolving right frontal scalp hematoma. Head CT 06/04/20 19:04 IMPRESSION: 1. No acute intracranial findings or cervical fracture. 2. Advanced cervical spondylosis. 3. Old left external capsular, basal ganglia lacunar infarction. 4. Age-related intracranial findings. 5. Resolving right frontal scalp hematoma. Chest X-Ray 06/04/20 19:13 IMPRESSION: Elevated right hemidiaphragm, possible paralysis. No acute cardiopulmonary findings. Pelvis X-Ray 06/04/20 19:14 IMPRESSION: 1. Pelvis x-ray exam without acute osseous findings. Carotid Doppler Study 06/05/20 15:51 IMPRESSION: 1. Less than 50% stenosis in the right internal carotid artery by sonographic criteria. 2. Less than 50% stenosis in the
--- NOTE | 2020-06-08 13:20 | WPDURCON ---
Assessment and Plan Assessment and plan (1) Gross hematuria: Code(s): R31.0 - Gross hematuria Status: Acute Assessment and Plan: I will go ahead and order a CT urogram. She will need a cystoscopy at some point. Urology Consult Note HPI Date Seen: 06/08/20 Requesting Physician: ELVIRA De Anda Primary Care Provider: Kodak Hernandez DO Consult Narrative Narrative: Suzanne Snider is a 80 year old female who is currently admitted for a right ankle fracture after a fall. I am specifically consult for gross hematuria. She states she has an intermittent blood in her urine for the last several months. The nurses had seen some dark tea-colored urine on this admission. Other times her urine is perfectly clear. Urinalysis does document at least microscopic hematuria. She has no flank pain. She has no history of recent urinary tract infection. She has no history of stone disease. She has not seen have history of flank trauma. Review of Systems Review of Systems: All systems reviewed & are unremarkable except as noted in HPI and below PMFSH Past Medical History Medical History Anxiety and depression Chronic midline low back pain without sciatica Depression with anxiety Essential (primary) hypertension Gastroesophageal reflux disease History of transient ischemic attack and cerebral infarction Hypothyroidism (acquired) Low vitamin B12 level Mixed hyperlipidemia Osteoarthritis Restless legs syndrome Urge incontinence of urine Vitamin D deficiency Surgical History Surgical History History of bilateral carotid endarterectomy left carotid endarterectomy June 2004 followed by right carotid endarterectomy a couple years later History of carpal tunnel surgery right - 1996 History of tubal ligation 1977 Hx of tonsillectomy 1957 Family History Family History Mother Patient's mother is Family history of pancreatic cancer Cerebrovascular accident Hypertension Family history of cardiovascular disease Father Acute myocardial infarction Patient's father is Hypertension Family history of cardiovascular disease Sibling Family history of transient ischemic attacks Social History Social History (Updated 06/05/20 @ 11:35 by Althea Moore PA-C) Social History: Ms. Snider lives at home alone in [place]. She denies alcohol use. Remote history of occasional cigarette smoking and quit in the . Denies other substance use. Code status was discussed and she wishes her code status to be Do Not Resuscitate. PCP: Dr Hernandez Smoking status: Former smoker Alcohol intake: never Substance use: never Living arrangements: alone Gender identity (if verbalized by the patient): Female Spiritual care concerns: No Meds Home Medications and Allergies Home Medications Medication Instructions Recorded Confirmed Type clopidogrel 75 mg tablet 75 mg PO DAILY #90 tablet 11/23/19 06/04/20 Rx valsartan 320 mg tablet 320 mg PO DAILY #90 tablet 11/23/19 06/04/20 Rx atorvastatin 10 mg tablet 10 mg PO DAILY #90 tablet 11/26/19 06/04/20 Rx bupropion HCl 300 mg 24 hr tablet, 300 mg PO QAM #90 tablet 11/26/19 06/04/20 Rx extended release furosemide 80 mg tablet 80 mg PO QAM #90 tablet 01/07/20 06/04/20 Rx potassium chloride 10 mEq 10 meq PO DAILY #90 tablet 01/08/20 06/04/20 Rx tablet,extended release solifenacin 5 mg tablet 5 mg PO DAILY 02/08/20 06/04/20 History tizanidine 4 mg capsule 4 mg PO BID PRN #90 cap 02/19/20 06/04/20 Rx tramadol 100 mg tablet 100 mg PO Q6H PRN #120 tablet 03/26/20 06/04/20 Rx ropinirole 2 mg tablet 2 mg PO BID #180 tablet 04/15/20 06/04/20 Rx levothyroxine 125 mcg tablet 125 mcg PO DAILY #90 tablet 04/23/20 06/04/20 Rx aspirin 81 mg PO DAILY
[2020-06-08 14:00] VITALS: BP 138/62; PULSE 68; RESP 14; TEMP 36.9; O2SAT 95
[2020-06-08 19:55] VITALS: BP 148/44; PULSE 70; RESP 14; TEMP 37.1; O2SAT 97
[2020-06-09 01:04] LABS: Sodium Urine Random 37 meq/L
[2020-06-09 04:31] VITALS: BP 122/75; PULSE 68; RESP 12; TEMP 36.6; O2SAT 96
[2020-06-09] MEDS: LEVOTHYROXINE SODIUM 150 MCG TABLET PO (06:21)
[2020-06-09 06:38] LABS: Anion Gap 5 mmol/L (8-16); Blood Urea Nitrogen 15 mg/dL (7-17); Calcium 9.1 mg/dL (8.4-10.2); Carbon Dioxide 33 mmol/L (22-30); Chloride 92 mmol/L (98-107); Estimated CRCL calculation 55 ml/min; Estimated Glomerular Filt Rate > 60; Glucose 99 mg/dL (65-105); Magnesium 2.1 mg/dL (1.6-2.3); Potassium 3.8 mmol/L (3.4-5.0); Sodium 130 mmol/L (137-145)
[2020-06-09] MEDS: POTASSIUM CHLORIDE 10 MEQ TABLET.ER PO (08:36)
[2020-06-09] MEDS: FUROSEMIDE 80 MG TABLET PO (08:36)
[2020-06-09] MEDS: SOLIFENACIN 5 MG TABLET PO (08:36)
[2020-06-09] MEDS: rOPINIRole HCL 1 MG TABLET 2 MG PO ×2 (08:36→17:52)
[2020-06-09] MEDS: ASPIRIN 81 MG CHEWABLE TABLET PO (08:37)
[2020-06-09] MEDS: VALSARTAN 160 MG TABLET 320 MG PO (08:37)
[2020-06-09] MEDS: buPROPion HCL XL (24 HR) 150 MG TABCR 300 MG PO (08:37)
[2020-06-09] MEDS: ATORVASTATIN 10 MG TABLET PO (08:38)
[2020-06-09] MEDS: amLODIPine BESYLATE 5 MG TABLET PO (08:38)
--- NOTE | 2020-06-09 09:07 | WPDUROPN2 ---
Progress Note: A&P Assessment and Plan (1) Gross hematuria: Code(s): R31.0 - Gross hematuria Status: Acute Assessment and Plan: CT shows a small hematoma, otherwise normal. Likely hematuria is d/t Plavix/UTI. However a diagnostic cystoscopy is needed, which could be done in the office as there are no obstructing stones or masses present. Discussed this plan with Dr. Corey. Follow up as outpatient for cystoscopy after discharge. No further evaluation needed. Subjective Subjective Date/Time Seen: 06/09/20 09:07 Gross Hematuria Review of Systems Cardiovascular: Cardiovascular: Denies chest pain Respiratory: Respiratory: Reports no additional respiratory complaints Gastrointestinal: Gastrointestinal: Denies abdominal pain, Denies nausea and Denies vomiting Genitourinary: Genitourinary: Reports hematuria, Denies dysuria, Denies pelvic pain, Denies flank pain, Denies urinary hesitancy and Denies urinary urgency Exam Resp: Effort & Inspection: normal respiratory effort Cardio: Rate: regular rate GI: GI Palp: Yes Soft to palpation and No Tenderness to palpation present (GI) Extrem: General: no edema Objective Data Vital Signs Vital Signs: Vital Signs - 24 hr 06/08/20 09:42 06/08/20 14:00 06/08/20 19:55 Temperature 98.4 F 98.7 F Pulse Rate 67 68 70 Respiratory Rate 18 14 14 Blood Pressure 138/62 148/44 H Pulse Oximetry 96 95 97 06/09/20 04:31 Temperature 97.8 F Pulse Rate 68 Respiratory Rate 12 Blood Pressure 122/75 Pulse Oximetry 96 Intake/Output Intake/Output: Intake & Output 06/06/20 06/07/20 06/08/20 06/09/20 23:59 23:59 23:59 23:59 Intake Total 1200 1080 940 300 Output Total 325 1375 700 300 Balance 875 -295 240 0 Meds/Results Medications: Active Medications Generic Name Dose Route Start Last Admin Trade Name Freq PRN Reason Stop Dose Admin Amlodipine Besylate 5 mg 06/05/20 14:00 06/09/20 08:38 Norvasc PO 5 mg DAILY XENIA Administration Aspirin 81 mg 06/05/20 09:00 06/09/20 08:37 Aspirin Chewable PO 81 mg DAILY XENIA Administration Atorvastatin Calcium 10 mg 06/05/20 09:00 06/09/20 08:38 Lipitor PO 10 mg DAILY XENIA Administration Bupropion HCl 300 mg 06/05/20 09:00 06/09/20 08:37 Wellbutrin Xl (24 Hr) PO 300 mg QAM XENIA Administration Furosemide 80 mg 06/05/20 09:00 06/09/20 08:36 Lasix Tablet PO 80 mg QAM XENIA Administration Hydralazine HCl 10 mg 06/05/20 12:13 Apresoline Hcl Inj IV PUSH Q8H PRN Blood Pressure - High Ceftriaxone Sodium/Dextrose 1 gm in 50 mls @ 100 mls/hr 06/09/20 09:00 06/09/20 08:37 Rocephin 1 Gm/D5w 50 Ml IVPB 100 mls/hr Q24H XENIA Administration Levothyroxine Sodium 150 mcg 06/07/20 06:30 06/09/20 06:21 Synthroid PO 150 mcg DAILY@0630 XENIA Administration Ondansetron HCl 4 mg 06/06/20 11:20 06/06/20 11:59 Zofran Inj IV PUSH 4 mg Q6H PRN Administration Nausea And Vomiting Potassium Chloride 10 meq 06/05/20 09:00 06/09/20 08:36 Kcl Tablet PO 10 meq DAILY XENIA Administration Ropinirole HCl 2 mg 06/04/20 23:50 06/09/20 08:36 Requip PO 2 mg BID XENIA Administration Solifenacin 5 mg 06/05/20 09:00 06/09/20 08:36 Vesicare PO 5 mg DAILY XENIA Administration Tizanidine HCl 4 mg 06/04/20 23:35 Zanaflex PO BID PRN muscle spasticity Tramadol HCl 100 mg 06/04/20 23:47 06/08/20 09:32 Ultram PO 100 mg Q6H PRN Administration Pain Rated 4-6 Valsartan 320 mg 06/05/20 09:00 06/09/20 08:37 Diovan PO 320 mg DAILY XENIA Administration Radiology Results: ITS Impressions Cervical Spine CT 06/04/20 19:04 IMPRESSION: 1. No acute intracranial findings or cervical fracture. 2. Advanced cervical spondylosis. 3. Old left external capsular, basal ganglia lacunar infarction. 4. Age-related intracranial findings. 5. Resolving right frontal scalp hematoma.
--- NOTE | 2020-06-09 10:11 | PM.PNCARD ---
Progress Note: A&P Assessment and Plan (1) Closed traumatic nondisplaced fracture of distal end of right fibula: Code(s): S82.831A - Other fracture of upper and lower end of right fibula, initial encounter for closed fracture Status: Acute Assessment and Plan: Patient is seen for pre op risk assessment Echo showed normal LV systolic function and no significant valvular disease She has history of peripheral vascular disease s/p bilateral endarterectomy (8 and 10 years ago). Stable She is also on lasix as outpatient, probably for diastolic CHF. Appears well compensated from that standpoint She had a stress test with Lexiscan in the past few years which was negative She should have acceptable risk to undergo surgery. That is planned for Tuesday (once off Plavix for 5 days) does not have active chest pain and no angina (2) History of transient ischemic attack and cerebral infarction: Code(s): Z86.73 - Personal history of transient ischemic attack (TIA), and cerebral infarction without residual deficits Status: Chronic Assessment and Plan: Okay to hold Plavix. Resume post operatively if no bleeding complications (3) Essential (primary) hypertension: Code(s): I10 - Essential (primary) hypertension Status: Chronic Assessment and Plan: Markedly elevated on admission. Norvasc added. BP control Better overall now. Consider increase Norvasc dose to 10 mg Subjective Date/time seen: 06/09/20 10:11 Interval history: Ms. Snider is an 80yo F admitted for right ankle fracture. She is feeling a bit better than yesterday. No acute events overnight. She denies any chest pain, shortness of breath, or cough. She is tolerating oral intake without nausea vomiting. Right ankle pain is well controlled this morning Exam Narrative: Exam Narrative: Awake alert oriented x3 not in acute distress Neck is supple no obvious JVD, no carotid bruit, she has scar from both carotid surgery Chest: Good air entry bilaterally, lungs are clear to auscultation and percussion bilaterally Cardiovascular: Regular rate and rhythm, 2/6 systolic murmur noted left sternal border Abdomen: Soft nontender bowel sounds positive Extremities: No edema Const: General: no acute distress Nutritional Appearance: well nourished Orientation/consciousness: patient oriented x3 HENMT: Head: normal to inspection and atraumatic Ears: hearing grossly normal bilaterally Face and sinus: normal facial exam Eyes: General: appearance normal, both eyes and all related structures Pupils: Equal, round and reactive pupils present EOM: EOMs intact bilaterally Neck: Neck: supple Chest: Chest palpation & inspection: normal inspection of the chest Resp: Effort & Inspection: normal respiratory effort and no respiratory distress Auscultation: clear to auscultation bilaterally Cardio: Jugular venous distension: no JVD Rate: regular rate Heart sounds: S1 normal heart sound present, S2 normal heart sound present and no murmurs Peripheral pulses: Peripheral pulses 2+ throughout GI: Auscultation: normal bowel sounds Skin: General skin exam: normal color Neuro: General: patient oriented x3 Cranial nerves: Yes Equal, round and reactive pupils present Extrem: General: normal to inspection and no clubbing, cyanosis or edema Objective Data Vital Signs Vital Signs: Vital Signs - 24 hr 06/08/20 14:00 06/08/20 19:55 06/09/20 04:31 Temperature 36.9 C 37.1 C 36.6 C Pulse Rate 68 70 68 Respiratory Rate 14 14 12 Blood Pressure 138/62 148/44 H 122/75 Pulse Oximetry 95 97 96 Intake/Output Intake/Output: Intake & Output 06/06/20 06/07/20 06/08/20 06/09/20 23:59 23:59 23:59 23:59 Intake Total 1200 1080 940 300 Output Total 325 1375 700 300 Balance 875 -295 240 0 Meds/Results Medications: Active Medications Generic Name Dose Route Start Last Admin Trade Name Freq PRN Reason Stop Dose Admin Amlodipine Besyl
[2020-06-09] MEDS: ONDANSETRON INJ 4 MG/2 ML VIAL IV PUSH (10:42)
--- NOTE | 2020-06-09 10:47 | PM.IMPN ---
Progress Note: A&P Assessment and Plan (1) Closed traumatic nondisplaced fracture of distal end of right fibula: Qualifiers: Encounter type: initial encounter Qualified Code(s): S82.831A - Other fracture of upper and lower end of right fibula, initial encounter for closed fracture Code(s): S82.831A - Other fracture of upper and lower end of right fibula, initial encounter for closed fracture Status: Acute Assessment and Plan: Patient presents after a fall at home; imaging shows right fibular distal metaphysis oblique fracture into the distal tibiofibular syndesmosis. Dr Stout following - appreciate recommendations. Plan is for surgical intervention this week after Plavix washout, hopefully tomorrow. Last dose of Plavix was 06/05/10. Cardiology was consulted for perioperative risk assessment given her history of CVA. Echocardiogram results noted. Further management orthopedic surgery - appreciate recommendations. Right lower extremity [id number] is casted. (2) Gait instability: Code(s): R26.81 - Unsteadiness on feet Status: Chronic Assessment and Plan: Patient admits she has been having trouble getting around lately at home, previously fell a few weeks ago. PT/OT evaluations appreciated and I suspect she may benefit from rehab following surgery. (3) Essential (primary) hypertension: Code(s): I10 - Essential (primary) hypertension Status: Chronic Assessment and Plan: Blood pressures are stable maintained on her home valsartan. Monitor BP and adjust treatment as needed. (4) Bilateral carotid artery disease: Qualifiers: Carotid artery disease type: unspecified Qualified Code(s): I77.9 - Disorder of arteries and arterioles, unspecified Code(s): I73.9 - Peripheral vascular disease, unspecified Status: Chronic Assessment and Plan: Patient has known bilateral carotid artery disease with history of bilateral endarterectomies in the remote past. Given questionable syncope, carotid Dopplers were obtained and are within normal limits. Continue her ASA. (5) Hypothyroidism (acquired): Code(s): E03.9 - Hypothyroidism, unspecified Status: Chronic Assessment and Plan: TSH is 16. Her home levothyroxine increased. Recommend following up with PCP in 6 weeks for recheck labs. (6) History of transient ischemic attack and cerebral infarction: Code(s): Z86.73 - Personal history of transient ischemic attack (TIA), and cerebral infarction without residual deficits Status: Chronic Assessment and Plan: History of CVA / TIA in the past on ASA and Plavix. Plavix held in light of her need for surgical intervention. (7) Acute UTI: Code(s): N39.0 - Urinary tract infection, site not specified Status: Acute Assessment and Plan: Urine culture grew pansensitive E coli. Start IV ceftriaxone (day 1). (8) Gross hematuria: Code(s): R31.0 - Gross hematuria Status: Acute Assessment and Plan: Patient describes she recently established with Dr. West for urinary incontinence. May be related to acute UTI and dual anti-platelet therapy. Appreciate Urology recommendations - recommend follow-up in the office for outpatient cystoscopy. Subjective Date/time seen: 06/09/20 10:15 Interval history: Ms. Snider is an 80yo F admitted for right ankle fracture. She is feeling nauseous this morning without abdominal pain. Her right ankle pain is well-controlled. She tolerated some breakfast without nausea or vomiting. She denies any chest pain, shor
--- NOTE | 2020-06-09 11:25 | PM.PNORT ---
Progress Note: A&P Additional Plan Pt eval'd by cardiology, cleared for surg. plan to go to surg tomorrow afternoon , pt is going to have cystiscope prior to ankle surg to eval hematuria. <IKE Us - Last Filed: 06/09/20 11:27> Subjective Subjective Date/Time Seen: 06/09/20 11:25 <IKE Us - Last Filed: 06/09/20 11:27> Objective Data Vital Signs Vital Signs: Vital Signs - 24 hr 06/08/20 14:00 06/08/20 19:55 06/09/20 04:31 Temperature 36.9 C 37.1 C 36.6 C Pulse Rate 68 70 68 Respiratory Rate 14 14 12 Blood Pressure 138/62 148/44 H 122/75 Pulse Oximetry 95 97 96 <IKE Us - Last Filed: 06/09/20 11:27> Intake/Output Intake/Output: Intake & Output 06/06/20 06/07/20 06/08/20 06/09/20 23:59 23:59 23:59 23:59 Intake Total 1200 1080 940 590 Output Total 325 1375 700 300 Balance 875 -295 240 290 <IKE Us - Last Filed: 06/09/20 11:27> Meds/Results Medications: Active Medications Generic Name Dose Route Start Last Admin Trade Name Freq PRN Reason Stop Dose Admin Amlodipine Besylate 5 mg 06/05/20 14:00 06/09/20 08:38 Norvasc PO 5 mg DAILY XENIA Administration Aspirin 81 mg 06/05/20 09:00 06/09/20 08:37 Aspirin Chewable PO 81 mg DAILY XENIA Administration Atorvastatin Calcium 10 mg 06/05/20 09:00 06/09/20 08:38 Lipitor PO 10 mg DAILY XENIA Administration Bupropion HCl 300 mg 06/05/20 09:00 06/09/20 08:37 Wellbutrin Xl (24 Hr) PO 300 mg QAM XENIA Administration Furosemide 80 mg 06/05/20 09:00 06/09/20 08:36 Lasix Tablet PO 80 mg QAM XENIA Administration Hydralazine HCl 10 mg 06/05/20 12:13 Apresoline Hcl Inj IV PUSH Q8H PRN Blood Pressure - High Ceftriaxone Sodium/Dextrose 1 gm in 50 mls @ 100 mls/hr 06/09/20 09:00 06/09/20 09:07 Rocephin 1 Gm/D5w 50 Ml IVPB Infused Q24H XENIA Infusion Levothyroxine Sodium 150 mcg 06/07/20 06:30 06/09/20 06:21 Synthroid PO 150 mcg DAILY@0630 XENIA Administration Ondansetron HCl 4 mg 06/06/20 11:20 06/09/20 10:42 Zofran Inj IV PUSH 4 mg Q6H PRN Administration Nausea And Vomiting Potassium Chloride 10 meq 06/05/20 09:00 06/09/20 08:36 Kcl Tablet PO 10 meq DAILY XENIA Administration Ropinirole HCl 2 mg 06/04/20 23:50 06/09/20 08:36 Requip PO 2 mg BID XENIA Administration Solifenacin 5 mg 06/05/20 09:00 06/09/20 08:36 Vesicare PO 5 mg DAILY XENIA Administration Tizanidine HCl 4 mg 06/04/20 23:35 Zanaflex PO BID PRN muscle spasticity Tramadol HCl 100 mg 06/04/20 23:47 06/08/20 09:32 Ultram PO 100 mg Q6H PRN Administration Pain Rated 4-6 Valsartan 320 mg 06/05/20 09:00 06/09/20 08:37 Diovan PO 320 mg DAILY XENIA Administration <IKE Us - Last Filed: 06/09/20 11:27> Radiology Results: ITS Impressions Cervical Spine CT 06/04/20 19:04 IMPRESSION: 1. No acute intracranial findings or cervical fracture. 2. Advanced cervical spondylosis. 3. Old left external capsular, basal ganglia lacunar infarction. 4. Age-related intracranial findings. 5. Resolving right frontal scalp hematoma. Head CT 06/04/20 19:04 IMPRESSION: 1. No acute intracranial findings or cervical fracture. 2. Advanced cervical spondylosis. 3. Old left external capsular, basal ganglia lacunar infarction. 4. Age-related intracranial findings. 5. Resolving right frontal scalp hematoma. Chest X-Ray 06/04/20 19:13 IMPRESSION: Elevated right hemidiaphragm, possible paralysis. No acute cardiopulmonary findings. Pelvis X-Ray 06/04/20 19:14 IMPRESSION: 1. Pelvis x-ray exam without acute osseous findings. Carotid Doppler Study 06/05/20 15:51 IMPRESSION: 1. Less than 50% stenosis in the right internal carotid artery by sonographic criteria. 2. Less than 50% stenosis in the left internal carotid
--- NOTE | 2020-06-09 12:59 | PCPTNOTE ---
The PT treatment was unable to be completed this PM due to patient refusal. Patient states she doesn't feel well this afternoon. Reported to RN. Will continue per Plan of Care frequency and duration.
--- NOTE | 2020-06-09 17:57 | WPDANESEPP ---
Anes - Eval Pre Procedure Procedure: Operation Date: 06/10/20 15:15 Proposed Procedures p Open Reduction Internal Fixation Right Ankle Fracture(Right) - Karl Stout MD Date/Time: 06/09/20 17:57 Pre Op Diagnosis: Right ankle fracture Patient Data Age: 80 Gender: F Height: 5 ft 4 in Weight: 81.8 kg Last Vital Signs Temp 97.8 F 06/09/20 04:31 Pulse 68 06/09/20 04:31 Resp 12 06/09/20 04:31 BP 122/75 06/09/20 04:31 Pulse Ox 96 06/09/20 04:31 Allergies Allergy/AdvReac Type Severity Reaction Status Date / Time codeine AdvReac Unknown Rash Verified 06/04/20 17:51 Home Medications Medication Instructions Recorded Confirmed Type clopidogrel 75 mg tablet 75 mg PO DAILY #90 tablet 11/23/19 06/04/20 Rx valsartan 320 mg tablet 320 mg PO DAILY #90 tablet 11/23/19 06/04/20 Rx atorvastatin 10 mg tablet 10 mg PO DAILY #90 tablet 11/26/19 06/04/20 Rx bupropion HCl 300 mg 24 hr tablet, 300 mg PO QAM #90 tablet 11/26/19 06/04/20 Rx extended release furosemide 80 mg tablet 80 mg PO QAM #90 tablet 01/07/20 06/04/20 Rx potassium chloride 10 mEq 10 meq PO DAILY #90 tablet 01/08/20 06/04/20 Rx tablet,extended release solifenacin 5 mg tablet 5 mg PO DAILY 02/08/20 06/04/20 History tizanidine 4 mg capsule 4 mg PO BID PRN #90 cap 02/19/20 06/04/20 Rx tramadol 100 mg tablet 100 mg PO Q6H PRN #120 tablet 03/26/20 06/04/20 Rx ropinirole 2 mg tablet 2 mg PO BID #180 tablet 04/15/20 06/04/20 Rx levothyroxine 125 mcg tablet 125 mcg PO DAILY #90 tablet 04/23/20 06/04/20 Rx aspirin 81 mg PO DAILY 06/04/20 06/04/20 History Laboratory Tests 06/09/20 06/09/20 00:48 05:56 Sodium 130 mmol/L L mmol/L (137-145) Potassium 3.8 mmol/L mmol/L (3.4-5.0) Chloride 92 mmol/L L mmol/L (98-107) Carbon Dioxide 33 mmol/L H mmol/L (22-30) Anion Gap 5 mmol/L L mmol/L (8-16) BUN 15 mg/dL mg/dL (7-17) Creatinine 0.70 mg/dL mg/dL (0.7-1.0) Estim Creat Clear Calc 55 ml/min ml/min Estimated GFR > 60 (59 - ) Glucose 99 mg/dL mg/dL (65-105) Calcium 9.1 mg/dL mg/dL (8.4-10.2) Magnesium 2.1 mg/dL mg/dL (1.6-2.3) Ur Random Sodium 37 meq/L meq/L Patient hx anesthesia problems: none Family hx anesthesia problems: none PMFSH Past Medical History Medical History Anxiety and depression Chronic midline low back pain without sciatica Depression with anxiety Essential (primary) hypertension Gastroesophageal reflux disease History of transient ischemic attack and cerebral infarction Hypothyroidism (acquired) Low vitamin B12 level Mixed hyperlipidemia Osteoarthritis Restless legs syndrome Urge incontinence of urine Vitamin D deficiency Surgical History Surgical History History of bilateral carotid endarterectomy left carotid endarterectomy June 2004 followed by right carotid endarterectomy a couple years later History of carpal tunnel surgery right - 1996 History of tubal ligation 1977 Hx of tonsillectomy 1957 Family History Family History Mother Patient's mother is Family history of pancreatic cancer Cerebrovascular accident Hypertension Family history of cardiovascular disease Father Acute myocardial infarction Patient's father is Hypertension Family history of cardiovascular disease Sibling Family history of transient ischemic attacks Social History Social History (Updated 06/05/20 @ 11:35 by Althea Moore PA-C) Social History: Ms. Snider lives at home alone in [place]. She denies alcohol use. Remote history of occasional cigarette smoking and quit in the . Denies other substance use. Code status was discussed and she wishes her code status to be Do Not Resuscitate. CALEB
[2020-06-09 20:15] VITALS: BP 134/50; PULSE 64; RESP 14; TEMP 36.7; O2SAT 95
[2020-06-10] VITALS (13 sets, daily range): BP systolic 109–185; BP diastolic 54–97; PULSE 61–96; RESP 13–21; TEMP 35.8–36.7; O2SAT 93–100
[2020-06-10 05:48] LABS: Basophils Absolute Auto 0.1 K/mm3 (0.0-0.1); Basophils Percent Auto 0.7 % (0.2-1.2); Eosinophils Absolute Auto 0.2 K/mm3 (0-0.3); Eosinophils Percent Auto 2.2 % (0-4.4); Hematocrit 40.5 % (37.0-47.0); Hemoglobin 12.7 g/dL (12.0-15.0); Immature Granulocyte Absolute 0.03 K/mm3 (0.00-0.031); Immature Granulocyte Percent A 0.3 % (0-0.5); Lymphocytes Absolute Auto 2.42 K/mm3 (0.9-3.2); Lymphocytes Percent Auto 25.2 % (18.3-44.2); Mean Corpuscular HGB Conc 31.4 g/dl (32-36); Mean Corpuscular Hemoglobin 27.4 pg (26-34); Mean Corpuscular Volume 87.3 fl (80-100); Mean Platelet Volume 9.4 fl (7.4-10.4); Monocytes Absolute Auto 0.9 K/mm3 (0.1-0.6); Monocytes Percent Auto 9.8 % (2.6-8.5); Neutrophils Absolute Auto 5.9 K/mm3 (1.3-6.7); Neutrophils Percent Auto 61.8 % (45.5-73.1); Platelet Count Result 471 k/mm3 (150-375); Red Blood Count 4.64 M/mm3 (4.2-5.4); Red Cell Distribution Width 15.6 % (11.5-14.5); White Blood Count 9.6 K/mm3 (4.5-10.0)
[2020-06-10] MEDS: LEVOTHYROXINE SODIUM 150 MCG TABLET PO (05:58)
[2020-06-10 06:10] LABS: Anion Gap 7 mmol/L (8-16); Blood Urea Nitrogen 19 mg/dL (7-17); Carbon Dioxide 28 mmol/L (22-30); Chloride 95 mmol/L (98-107); Estimated CRCL calculation 44 ml/min; Estimated Glomerular Filt Rate 60; Glucose 94 mg/dL (65-105); Magnesium 2.1 mg/dL (1.6-2.3); Sodium 130 mmol/L (137-145)
[2020-06-10] MEDS: buPROPion HCL XL (24 HR) 150 MG TABCR 300 MG PO (08:52)
[2020-06-10] MEDS: amLODIPine BESYLATE 5 MG TABLET PO (08:53)
--- NOTE | 2020-06-10 09:58 | PM.PNCARD ---
Progress Note: A&P Assessment and Plan (1) Closed traumatic nondisplaced fracture of distal end of right fibula: Qualifiers: Encounter type: initial encounter Qualified Code(s): S82.831A - Other fracture of upper and lower end of right fibula, initial encounter for closed fracture Code(s): S82.831A - Other fracture of upper and lower end of right fibula, initial encounter for closed fracture Status: Acute Assessment and Plan: Going to OR this afternoon. Should have acceptable risk Echo showed normal LV systolic function and no significant valvular disease She has history of peripheral vascular disease s/p bilateral endarterectomy Stable She is also on lasix as outpatient, probably for diastolic CHF. Appears well compensated from that standpoint She had a stress test with Lexiscan in the past few years which was negative (2) History of transient ischemic attack and cerebral infarction: Code(s): Z86.73 - Personal history of transient ischemic attack (TIA), and cerebral infarction without residual deficits Status: Chronic Assessment and Plan: Okay to hold Plavix. Resume post operatively if no bleeding complications (3) Essential (primary) hypertension: Code(s): I10 - Essential (primary) hypertension Status: Chronic Assessment and Plan: Markedly elevated on admission. Norvasc added. BP control Better overall now. Consider increase Norvasc dose to 10 mg Additional Plan Thank you for allowing me to participate in this patient's care, I will be following up with you. Please do not hesitate to call me for any other inquiry Subjective Date/time seen: 06/10/20 09:58 Going to OR this afternoon. She feels well this morning. Denies chest pain or dyspnea. Review of Systems Review of Systems: All systems reviewed & are unremarkable except as noted in HPI and below Constitutional: Constitutional: Reports as per HPI, Reports fatigue and Reports lethargy Eyes: Eyes: Reports as per HPI ENT: Reports system reviewed and no additional complaints, except as documented and Reports as per HPI Cardiovascular: Cardiovascular: Reports as per HPI and Reports dyspnea on exertion Respiratory: Respiratory: Reports as per HPI and Reports dyspnea on exertion Gastrointestinal: Gastrointestinal: Reports as per HPI, Denies heartburn, Denies diarrhea, Denies nausea, Denies vomiting and Denies hematemesis Genitourinary: Genitourinary: Reports as per HPI Musculoskeletal: Musculoskeletal: Reports as per HPI Endocrine: Endocrine: Reports fatigue Exam Narrative: Exam Narrative: Awake alert oriented x3 not in acute distress Neck is supple no obvious JVD, no carotid bruit, she has scar from both carotid surgery Chest: Good air entry bilaterally, lungs are clear to auscultation and percussion bilaterally Cardiovascular: Regular rate and rhythm, 2/6 systolic murmur noted left sternal border Abdomen: Soft nontender bowel sounds positive Extremities: No edema Const: General: no acute distress Nutritional Appearance: well nourished Orientation/consciousness: patient oriented x3 HENMT: Head: normal to inspection and atraumatic Ears: hearing grossly normal bilaterally Face and sinus: normal facial exam Eyes: General: appearance normal, both eyes and all related structures Pupils: Equal, round and reactive pupils present EOM: EOMs intact bilaterally Neck: Neck: supple Chest: Chest palpation & inspection: normal inspection of the chest Resp: Effort & Inspection: normal respiratory effort and no respiratory distress Auscultation: clear to auscultation bilaterally Cardio: Jugular venous distension: no JVD Rate: regular rate Heart sounds: S1 normal heart sound present, S2 normal heart sound present and no murmurs Peripheral pulses: Peripheral pulses 2+ throughout GI: Auscultation: normal bowel sounds Skin: General skin exam: normal color Neuro: General: patient orient
[2020-06-10 13:17] LABS: SARS-CoV-2 RNA PCR Negative
--- NOTE | 2020-06-10 13:50 | PC.NURSE ---
Report called to Elvira CELESTIN preop.
--- NOTE | 2020-06-10 14:35 | PC.NURSE ---
To OR via bed.
--- NOTE | 2020-06-10 14:49 | PCDIET ---
Nutrition Follow-Up Complete: Inadequate oral intake r/t reduced appetite as evidence by 86% of UBW PO intake of meals and supplements at 50% or greater to maintain wt Goal: Goal met. Continue goal. Pt current nutrition is NPO. Nutrition recommendation: Agree (npo for surgery today) Last recorded weight is 81.8 kg, recommend updated wt Bowel Motility: 06/06 Labs Reviewed:Na 130, BUN 19 Meds Noted:Tramadol, norvasc, rocephin, lasix, KCL, synthroid, zofran Additional Notes: Pt eating well, 50-100% of all meals. No new wt to assess adequacy. Pt declined supplemets this visit. May need a motility agent like mg citrate if no BM in the next 24hrs. We will continue to follow every five days to assess for adequate intake, wt.
[2020-06-10] MEDS: LACTATED RINGERS 1,000 ML 30 ML IV CONT (15:00)
--- NOTE | 2020-06-10 15:00 | WPDHPUPDATE1 ---
History and Physical Update Update Date/Time: 06/10/20 15:00 I have been advised that the cystoscopy will be scheduled for another day as outpatient. History and Physical has been reviewed, including an updated exam of the patient. There are NO changes in the patient's condition. Risks, benefits, and alternatives have been discussed and questions answered. Patient agrees to proceed with procedure.
--- NOTE | 2020-06-10 15:06 | WPDANESEPPF ---
Anes - Initial Pre Proc Eval Procedure: Operation Date: 06/10/20 15:15 Proposed Procedures p Open Reduction Internal Fixation Right Ankle Fracture(Right) - Karl Stout MD Date/Time: 06/10/20 15:06 Surgeon: Armida Ortega PA-C Pre Op Diagnosis: Right ankle fracture Patient Data Age: 80 Gender: F Height: 5 ft 4 in Weight: 81.8 kg Last Vital Signs Temp 36.2 C L 06/10/20 10:44 Pulse 63 06/10/20 10:44 Resp 18 06/10/20 10:44 BP 123/55 L 06/10/20 10:44 Pulse Ox 99 06/10/20 10:44 Allergies Allergy/AdvReac Type Severity Reaction Status Date / Time codeine AdvReac Unknown Rash Verified 06/04/20 17:51 Home Medications Medication Instructions Recorded Confirmed Type clopidogrel 75 mg tablet 75 mg PO DAILY #90 tablet 11/23/19 06/04/20 Rx valsartan 320 mg tablet 320 mg PO DAILY #90 tablet 11/23/19 06/04/20 Rx atorvastatin 10 mg tablet 10 mg PO DAILY #90 tablet 11/26/19 06/04/20 Rx bupropion HCl 300 mg 24 hr tablet, 300 mg PO QAM #90 tablet 11/26/19 06/04/20 Rx extended release furosemide 80 mg tablet 80 mg PO QAM #90 tablet 01/07/20 06/04/20 Rx potassium chloride 10 mEq 10 meq PO DAILY #90 tablet 01/08/20 06/04/20 Rx tablet,extended release solifenacin 5 mg tablet 5 mg PO DAILY 02/08/20 06/04/20 History tizanidine 4 mg capsule 4 mg PO BID PRN #90 cap 02/19/20 06/04/20 Rx tramadol 100 mg tablet 100 mg PO Q6H PRN #120 tablet 03/26/20 06/04/20 Rx ropinirole 2 mg tablet 2 mg PO BID #180 tablet 04/15/20 06/04/20 Rx levothyroxine 125 mcg tablet 125 mcg PO DAILY #90 tablet 04/23/20 06/04/20 Rx aspirin 81 mg PO DAILY 06/04/20 06/04/20 History Laboratory Tests 06/10/20 06/10/20 06/10/20 00:58 05:33 05:33 WBC 9.6 K/mm3 K/mm3 (4.5-10.0) RBC 4.64 M/mm3 M/mm3 (4.2-5.4) Hgb 12.7 g/dL g/dL (12.0-15.0) Hct 40.5 % % (37.0-47.0) MCV 87.3 fl fl (80-100) MCH 27.4 pg pg (26-34) MCHC 31.4 g/dl L g/dl (32-36) RDW 15.6 % H % (11.5-14.5) Plt Count 471 k/mm3 H k/mm3 (150-375) MPV 9.4 fl fl (7.4-10.4) Immature Gran % (Auto) 0.3 % % (0-0.5) Neut % (Auto) 61.8 % % (45.5-73.1) Lymph % (Auto) 25.2 % % (18.3-44.2) [place] % (Auto) 9.8 % H % (2.6-8.5) Eos % (Auto) 2.2 % % (0-4.4) Baso % (Auto) 0.7 % % (0.2-1.2) Lymph # (Auto) 2.42 K/mm3 K/mm3 (0.9-3.2) [place] # (Auto) 0.9 K/mm3 H K/mm3 (0.1-0.6) Eos # (Auto) 0.2 K/mm3 K/mm3 (0-0.3) Baso # (Auto) 0.1 K/mm3 K/mm3 (0.0-0.1) Abs Immat Gran (auto) 0.03 K/mm3 K/mm3 (0.00-0.031) Absolute Neuts (auto) 5.9 K/mm3 K/mm3 (1.3-6.7) Absolute Nucleated RBC 0.0 K/mm3 K/mm3 (0.0-0.012) Nucleated RBC % 0.0 % % (0.0-0.2) Sodium 130 mmol/L L mmol/L (137-145) Potassium 4.0 mmol/L mmol/L (3.4-5.0) Chloride 95 mmol/L L mmol/L (98-107) Carbon Dioxide 28 mmol/L mmol/L (22-30) Anion Gap 7 mmol/L L mmol/L (8-16) BUN 19 mg/dL H mg/dL (7-17) Creatinine 0.90 mg/dL mg/dL (0.7-1.0) Estim Creat Clear Calc 44 ml/min ml/min Estimated GFR 60 (59 - ) Glucose 94 mg/dL mg/dL (65-105) Calcium 9.0 mg/dL mg/dL (8.4-10.2) Magnesium 2.1 mg/dL mg/dL (1.6-2.3) SARS-CoV-2 RNA (RT-PCR) Negative Patient hx anesthesia problems: none Family hx anesthesia problems: none PMFSH Past Medical History Medical History Anxiety and depression Chronic midline low back pain without sciatica Depression with anxiety Essential (primary) hypertension Gastroesophageal reflux disease History of transient ischemic attack and cerebral infarction Hypothyroidism (acquired) Low vitamin B12 level Mixed hyperlipidemia Osteoarthritis Restless l
[2020-06-10] MEDS: ceFAZolin 2 GM/D5W 50 ML 2 GM/50 ML BAG IVPB (15:35)
[2020-06-10] MEDS: ceFAZolin SODIUM 1 GM VIAL IRRIGATION (15:57)
--- NOTE | 2020-06-10 17:16 | PM.PROC ---
Procedure Note - Detailed Date of procedure: 06/10/20 Pre-op diagnosis: Right ankle fracture Harrison C right distal fibular fracture with mild medial clear space and syndesmotic space widening Post-op diagnosis: same Procedure performed: Open reduction internal fixation right distal fibular shaft fracture with syndesmotic fixation with Arthrex tight rope device Description of procedure: Patient brought to the operating room and general anesthesia was administered. She received weight based vancomycin and 2 g of Ancef preoperatively. A bump was placed under the buttock and roll of towels under the right distal thigh to allow internal rotation the right leg in the right leg was prepped draped usual fashion. Limb was examined a tourniquet elevated 250 mmHg. A 5 in longitudinal incision was made centered over the fracture site the distally stopped about a cm short of the tip of the lateral malleolus. Dissection was carried down to the fibula. The superficial branch of peroneal nerve actually ran directly lateral to the fibula along the course of the exposure and fortunately we visualized this immediately and was not injured. We mobilized it anteriorly. The fracture was exposed and hematoma removed. Reduction required longitudinal traction on the distal fragment and with this done and a bone clamp on the proximal fragment to ream laterally were able to reduce the fracture with a towel clip style reduction clamp. The obliquity of the fracture was such that I elected to use a 2 mm leg screw inserted through a posterolateral gliding hole and we countersunk this flush to the cortex and this held the fracture anatomically reduced confirmed with fluoro. We contoured a 7 hole 1/3 tubular locking plate from the Arthrex set and this was applied lateral aspect of the fibular shaft and lateral malleolus. A cortical screws placed just proximal the fracture to compress the plate to the bone and a cortical screw distal to the fracture to do the same and this gave us anatomic reduction and close the medial clear space down to about 2.5 mm. We used 1 locking screw far distally and the rest cortical screws. The 2nd from most distal hole was about a cm proximal to the joint space and through this we inserted the guidewire for from the tight rope set and when we had orientation the wire parallel to the joint and 30? of external rotation relative to the foot we used the cannulated drill drilled across it placed the tight rope across the fibula and tibia and was deployed without difficulty and tightened down snug. After tightening we saw that the medial clear space was completely stable to valgus stress. The tourniquet had been released after we had placed about half the screws and hemostasis at this point was excellent. The wound was again thoroughly irrigated with antibiotic solution and closed with 3 0 3 0 subcutaneous Vicryl and Dermabond EBL was negligible. A posterior splint well padded was applied she was transferred postop recovery room stable condition. No known complications. Bone quality was satisfactory to the extent that I think we will lower to be light partial weight-bearing at 4 weeks and then weight-bearing as tolerated at 6 weeks. We should be over the start range of motion at 2 weeks. Surgeon: Karl Stout MD
--- NOTE | 2020-06-10 17:35 | PM.EVENT ---
Event Note Event Note Event Note: Patient was in surgery and was not seen 06/10/20
--- NOTE | 2020-06-10 18:30 | PC.NURSE ---
Returned from OR via bed.
[2020-06-10] MEDS: ACETAMINOPHEN 500 MG TABLET 1000 MG PO ×2 (18:46→23:10)
[2020-06-10] MEDS: rOPINIRole HCL 1 MG TABLET 2 MG PO (18:46)
[2020-06-10] MEDS: VALSARTAN 160 MG TABLET 320 MG PO (18:47)
[2020-06-11 05:14] VITALS: BP 155/71; PULSE 72; RESP 14; TEMP 36.6; O2SAT 96
[2020-06-11] MEDS: ACETAMINOPHEN 500 MG TABLET 1000 MG PO ×3 (05:20→16:50)
[2020-06-11] MEDS: LEVOTHYROXINE SODIUM 150 MCG TABLET PO (05:20)
--- NOTE | 2020-06-11 09:22 | PM.PNCARD ---
Progress Note: A&P Assessment and Plan (1) Closed traumatic nondisplaced fracture of distal end of right fibula: Qualifiers: Encounter type: initial encounter Qualified Code(s): S82.831A - Other fracture of upper and lower end of right fibula, initial encounter for closed fracture Code(s): S82.831A - Other fracture of upper and lower end of right fibula, initial encounter for closed fracture Status: Acute Assessment and Plan: Echo showed normal LV systolic function and no significant valvular disease She has history of peripheral vascular disease s/p bilateral endarterectomy Stable She is also on lasix as outpatient, probably for diastolic CHF. Appears well compensated from that standpoint She had a stress test with Lexiscan in the past few years which was negative (2) History of transient ischemic attack and cerebral infarction: Code(s): Z86.73 - Personal history of transient ischemic attack (TIA), and cerebral infarction without residual deficits Status: Chronic Assessment and Plan: Okay to hold Plavix. Resume post operatively if no bleeding complications (3) Essential (primary) hypertension: Code(s): I10 - Essential (primary) hypertension Status: Chronic Assessment and Plan: Markedly elevated on admission. Norvasc added. BP control Better overall now. Consider increase Norvasc dose to 10 mg Subjective Date/time seen: 06/11/20 09:22 She feels well today, no chest pain no shortness of breath, she is able to stand up and have minimal ambulation with physical therapy Exam Narrative: Exam Narrative: Awake alert oriented x3 not in acute distress Neck is supple no obvious JVD, no carotid bruit, she has scar from both carotid surgery Chest: Good air entry bilaterally, lungs are clear to auscultation and percussion bilaterally Cardiovascular: Regular rate and rhythm, 2/6 systolic murmur noted left sternal border Abdomen: Soft nontender bowel sounds positive Extremities: No edema Objective Data Vital Signs Vital Signs: Vital Signs - 24 hr 06/10/20 10:44 06/10/20 14:30 06/10/20 17:20 Temperature 36.2 C L 36.3 C L 36.2 C L Pulse Rate 63 77 86 Respiratory Rate 18 16 13 Blood Pressure 123/55 L 109/97 H 185/71 H Pulse Oximetry 99 94 100 06/10/20 17:35 06/10/20 17:50 06/10/20 18:05 Temperature Pulse Rate 91 96 89 Respiratory Rate 14 15 16 Blood Pressure 170/87 H 156/72 H 149/61 H Pulse Oximetry 95 100 97 06/10/20 18:20 06/10/20 18:30 06/10/20 18:40 Temperature 36.0 C L 35.8 C L Pulse Rate 89 86 81 Respiratory Rate 21 H 16 16 Blood Pressure 157/62 H 136/60 154/70 H Pulse Oximetry 96 100 98 06/10/20 19:10 06/10/20 20:23 06/11/20 05:14 Temperature 36.1 C L 36.7 C 36.6 C Pulse Rate 89 84 72 Respiratory Rate 16 14 14 Blood Pressure 140/62 129/72 155/71 H Pulse Oximetry 100 93 96 Intake/Output Intake/Output: Intake & Output 06/08/20 06/09/20 06/10/20 06/11/20 23:59 23:59 23:59 23:59 Intake Total 940 1350 450 250 Output Total 700 300 900 400 Balance 240 1050 -450 -150 Meds/Results Medications: Active Medications Generic Name Dose Route Start Last Admin Trade Name Freq PRN Reason Stop Dose Admin Acetaminophen 1,000 mg 06/10/20 18:25 06/11/20 05:20 Tylenol Tablet PO 1,000 mg Q6HR XENIA Administration Amlodipine Besylate 5 mg 06/05/20 14:00 06/10/20 08:53 Norvasc PO 5 mg DAILY XENIA Administration Aspirin 81 mg 06/05/20 09:00 06/10/20 08:51 Aspirin Chewable PO Not Given DAILY [facility] Atorvastatin Calcium 10 mg 06/05/20 09:00 06/10/20 08:51 Lipitor PO Not Given DAILY [facility] Bupropion HCl 300 mg 06/05/20 09:00 06/10/20 08:52 Wellbutrin Xl (24 Hr) PO 300 mg QAM XENIA Administration Docusate Sodium 100 mg 06/11/20 09:00 Colace Capsule PO BID [facility] Famotidine 20 mg 06/10/20 21:00 Pepcid PO Q12HR XENIA Furosemide 80 mg 06/05/20 09:00
[2020-06-11 09:30] LABS: Basophils Absolute Auto 0.1 K/mm3 (0.0-0.1); Basophils Percent Auto 0.4 % (0.2-1.2); Eosinophils Percent Auto 0.2 % (0-4.4); Hematocrit 43.5 % (37.0-47.0); Hemoglobin 13.9 g/dL (12.0-15.0); Immature Granulocyte Absolute 0.05 K/mm3 (0.00-0.031); Immature Granulocyte Percent A 0.4 % (0-0.5); Lymphocytes Absolute Auto 1.81 K/mm3 (0.9-3.2); Lymphocytes Percent Auto 13.6 % (18.3-44.2); Mean Corpuscular Hemoglobin 27.1 pg (26-34); Mean Platelet Volume 9.3 fl (7.4-10.4); Monocytes Absolute Auto 1.1 K/mm3 (0.1-0.6); Monocytes Percent Auto 8.2 % (2.6-8.5); Neutrophils Absolute Auto 10.3 K/mm3 (1.3-6.7); Neutrophils Percent Auto 77.2 % (45.5-73.1); Platelet Count Result 592 k/mm3 (150-375); Red Blood Count 5.12 M/mm3 (4.2-5.4); White Blood Count 13.3 K/mm3 (4.5-10.0)
[2020-06-11] MEDS: ATORVASTATIN 10 MG TABLET PO (09:37)
[2020-06-11] MEDS: ASPIRIN 81 MG CHEWABLE TABLET PO (09:37)
[2020-06-11] MEDS: buPROPion HCL XL (24 HR) 150 MG TABCR 300 MG PO (09:37)
[2020-06-11] MEDS: amLODIPine BESYLATE 5 MG TABLET PO (09:37)
[2020-06-11] MEDS: DOCUSATE SODIUM 100 MG CAPSULE PO ×2 (09:37→16:50)
[2020-06-11] MEDS: SOLIFENACIN 5 MG TABLET PO (09:38)
[2020-06-11] MEDS: POTASSIUM CHLORIDE 10 MEQ TABLET.ER PO (09:38)
[2020-06-11] MEDS: rOPINIRole HCL 1 MG TABLET 2 MG PO ×2 (09:38→16:50)
[2020-06-11] MEDS: FUROSEMIDE 80 MG TABLET PO (09:38)
[2020-06-11] MEDS: VALSARTAN 160 MG TABLET 320 MG PO (09:38)
[2020-06-11 09:45] LABS: Alanine Aminotransferase 17 U/L (4-35); Alkaline Phosphatase 79 U/L (38-126); Anion Gap 9 mmol/L (8-16); Aspartate Amino Transferase 22 U/L (14-36); Bilirubin,Total 0.4 mg/dL (0.2-1.3); Blood Urea Nitrogen 21 mg/dL (7-17); Calcium 9.8 mg/dL (8.4-10.2); Carbon Dioxide 29 mmol/L (22-30); Chloride 95 mmol/L (98-107); Estimated CRCL calculation 44 ml/min; Estimated Glomerular Filt Rate 60; Glucose 132 mg/dL (65-105); Potassium 4.3 mmol/L (3.4-5.0); Sodium 133 mmol/L (137-145)
[2020-06-11 10:30] VITALS: BP 130/42; PULSE 63; RESP 16; TEMP 36.3; O2SAT 97
[2020-06-11 10:43] VITALS: BP 146/38
--- NOTE | 2020-06-11 11:00 | PM.DS ---
DS: Admitting Diagnosis Admitting Diagnosis Admitting Diagnosis: Right ankle fracture DS: Discharge Diagnosis Discharge Diagnosis (1) Closed traumatic nondisplaced fracture of distal end of right fibula: Qualifiers: Encounter type: initial encounter Qualified Code(s): S82.831A - Other fracture of upper and lower end of right fibula, initial encounter for closed fracture Code(s): S82.831A - Other fracture of upper and lower end of right fibula, initial encounter for closed fracture Status: Acute Assessment and Plan: ------patient underwent a open reduction internal fixation of the right distal fibular shaft 06/10 with no immediate complications. The day of discharge her pulses and sensation were intact and her pain was controlled. She is going to continue with PT and OT at an outside facility. I spoke with Dr. Stout who recommended continuing the aspirin and Plavix and following up in his office next Tuesday. She should be nonweightbearing (2) Gait instability: Code(s): R26.81 - Unsteadiness on feet Status: Chronic Assessment and Plan: -----Patient admits she has been having trouble getting around lately at home, and has been falling. She has discharge to SNF (3) Essential (primary) hypertension: Code(s): I10 - Essential (primary) hypertension Status: Chronic Assessment and Plan: -----last blood pressure 155/53. Her Norvasc was increased (4) Bilateral carotid artery disease: Qualifiers: Carotid artery disease type: unspecified Qualified Code(s): I77.9 - Disorder of arteries and arterioles, unspecified Code(s): I73.9 - Peripheral vascular disease, unspecified Status: Chronic Assessment and Plan: ----- Patient has known bilateral carotid artery disease with history of bilateral endarterectomies in the remote past. Given questionable syncope, carotid Dopplers were obtained and are within normal limits. Continue her ASA. (5) Hypothyroidism (acquired): Code(s): E03.9 - Hypothyroidism, unspecified Status: Chronic Assessment and Plan: -----TSH is 16 within normal T4. Her home levothyroxine increased she was instructed to follow-up with her primary care physician for repeat TSH.. (6) History of transient ischemic attack and cerebral infarction: Code(s): Z86.73 - Personal history of transient ischemic attack (TIA), and cerebral infarction without residual deficits Status: Chronic Assessment and Plan: -----History of CVA / TIA in the past on ASA and Plavix. Continue with these (7) Acute UTI: Code(s): N39.0 - Urinary tract infection, site not specified Status: Acute Assessment and Plan: ------Urine culture grew pansensitive E coli. She was discharged on cefdinir (8) Gross hematuria: Code(s): R31.0 - Gross hematuria Status: Acute Assessment and Plan: -----likely due to UTI and possibly anti-platelet therapy. These have been held in her hematuria has improved. She does have a small hematoma in her bladder and I spoke to Urology who is going to do a cystoscopy outpatient. She is restart her anti-platelet therapy and if she starts to have hematuria she is to call their office to schedule it sooner. DS: Summary Hospital Course Reason for hospitalization: Fall, ankle fracture Hospital Course: Patient is an 80-year-old female who presented emergency room for ankle pain and inability to walk after fall. Patient states that she tripped over her rug and could not ambulate after that. She thinks she hit her head but does not remember if she lost consciousness or not. She had no dizziness or chest pain before the fall. She has been falling more frequently lately. Temperature 97.8?, pulse 82, respiratory rate 18, blood pressure 198/66. Initial white blood cell count 11.4, hemoglobin 13.3, hematocrit 42.0, platelets 490. UA
--- NOTE | 2020-06-11 12:11 | PM.PNORT ---
Progress Note: A&P Additional Plan Wiggles toes. Alertand oriented. Denies numbness to light touch right foot. SNU placement in progress. Subjective Subjective Date/Time Seen: 06/11/20 12:11 Objective Data Vital Signs Vital Signs: Vital Signs - 24 hr 06/10/20 14:30 06/10/20 17:20 06/10/20 17:35 Temperature 36.3 C L 36.2 C L Pulse Rate 77 86 91 Respiratory Rate 16 13 14 Blood Pressure 109/97 H 185/71 H 170/87 H Pulse Oximetry 94 100 95 06/10/20 17:50 06/10/20 18:05 06/10/20 18:20 Temperature Pulse Rate 96 89 89 Respiratory Rate 15 16 21 H Blood Pressure 156/72 H 149/61 H 157/62 H Pulse Oximetry 100 97 96 06/10/20 18:30 06/10/20 18:40 06/10/20 19:10 Temperature 36.0 C L 35.8 C L 36.1 C L Pulse Rate 86 81 89 Respiratory Rate 16 16 16 Blood Pressure 136/60 154/70 H 140/62 Pulse Oximetry 100 98 100 06/10/20 20:23 06/11/20 05:14 06/11/20 10:30 Temperature 36.7 C 36.6 C 36.3 C L Pulse Rate 84 72 63 Respiratory Rate 14 14 16 Blood Pressure 129/72 155/71 H 130/42 L Pulse Oximetry 93 96 97 06/11/20 10:43 Temperature Pulse Rate Respiratory Rate Blood Pressure 146/38 H Pulse Oximetry Intake/Output Intake/Output: Intake & Output 06/08/20 06/09/20 06/10/20 06/11/20 23:59 23:59 23:59 23:59 Intake Total 940 1350 450 370 Output Total 700 300 900 400 Balance 240 1050 -450 -30 Meds/Results Medications: Active Medications Generic Name Dose Route Start Last Admin Trade Name Freq PRN Reason Stop Dose Admin Acetaminophen 1,000 mg 06/10/20 18:25 06/11/20 05:20 Tylenol Tablet PO 1,000 mg Q6HR XENIA Administration Amlodipine Besylate 5 mg 06/05/20 14:00 06/11/20 09:37 Norvasc PO 5 mg DAILY XENIA Administration Aspirin 81 mg 06/05/20 09:00 06/11/20 09:37 Aspirin Chewable PO 81 mg DAILY [facility] Administration Atorvastatin Calcium 10 mg 06/05/20 09:00 06/11/20 09:37 Lipitor PO 10 mg DAILY [facility] Administration Bupropion HCl 300 mg 06/05/20 09:00 06/11/20 09:37 Wellbutrin Xl (24 Hr) PO 300 mg QAM [facility] Administration Cefdinir 300 mg 06/11/20 11:00 Omnicef PO Q12HR [facility] Clopidogrel Bisulfate 75 mg 06/11/20 10:40 Plavix PO QAM [facility] Docusate Sodium 100 mg 06/11/20 09:00 06/11/20 09:37 Colace Capsule PO 100 mg BID [facility] Administration Furosemide 80 mg 06/05/20 09:00 06/11/20 09:38 Lasix Tablet PO 80 mg QAM [facility] Administration Cefazolin Sodium 1 gm in 50 mls @ 100 mls/hr 06/10/20 22:00 06/11/20 06:23 Ancef 1 Gm/D5w 50 Ml Pm IVPB 06/11/20 14:29 Infused Q8H [facility] Infusion Levothyroxine Sodium 150 mcg 06/07/20 06:30 06/11/20 05:20 Synthroid PO 150 mcg DAILY@0630 [facility] Administration Magnesium Hydroxide 30 ml 06/10/20 18:25 Milk Of Magnesia PO BID PRN Constipation Morphine Sulfate 2 mg 06/10/20 18:25 Morphine Sulfate Inj IV PUSH Q3H PRN Pain Rated 7-10 Ondansetron HCl 4 mg 06/10/20 18:25 Zofran Inj IV PUSH Q4H PRN Nausea And Vomiting Oxycodone HCl 2.5 mg 06/10/20 18:25 06/11/20 09:38 Roxicodone Ir Tablet PO 2.5 mg Q4H PRN Administration Pain Rated 4-6 Potassium Chloride 10 meq 06/05/20 09:00 06/11/20 09:38 Kcl Tablet PO 10 meq DAILY [facility] Administration Ropinirole HCl 2 mg 06/04/20 23:50 06/11/20 09:38 Requip PO 2 mg BID [facility] Administration Solifenacin 5 mg 06/05/20 09:00 06/11/20 09:38 Vesicare PO 5 mg DAILY [facility] Administration Tizanidine HCl 4 mg 06/04/20 23:35 Zanaflex PO BID PRN muscle spasticity Valsartan 320 mg 06/05/20 09:00 06/11/20 09:38 Diovan PO 320 mg DAILY XENIA Administration Radiology Results: ITS Impressions Cervical Spine CT 06/04/20 19:04 IMPRESSION: 1. No acute intracranial findings or cervical fracture. 2. Advanced cervical spondylosis. 3. Old left external capsular, basal ganglia lacunar infarction. 4. Age-related intra
[2020-06-11] MEDS: CLOPIDOGREL BISULFATE 75 MG TABLET PO (13:07)
[2020-06-11] MEDS: CEFDINIR 300 MG CAPSULE PO (13:07)
--- NOTE | 2020-06-11 13:08 | P.PNAN_ITS ---
Anes - Prog Note Post-Op Date/Time: 06/11/20 13:08 Cardiovascular status: normal Respiratory status: normal Airway patency: baseline Mental status: baseline Post-Op hydration status: normal Vital Signs: Last Vital Signs Temp 36.3 C L 06/11/20 10:30 Pulse 63 06/11/20 10:30 Resp 16 06/11/20 10:30 BP 146/38 H 06/11/20 10:43 Pulse Ox 97 06/11/20 10:30 Pain Score (VAS): 1 I/O: Intake & Output 06/10/20 06/11/20 06/11/20 23:59 07:59 15:59 Intake Total 400 250 120 Output Total 500 400 Balance -100 -150 120 Laboratory Tests 06/11/20 09:25 06/11/20 09:25 06/10/20 06/11/20 06/11/20 00:58 09:25 09:25 WBC 13.3 H RBC 5.12 Hgb 13.9 Hct 43.5 MCV 85.0 MCH 27.1 MCHC 32.0 RDW 15.0 H Plt Count 592 H MPV 9.3 Immature Gran % (Auto) 0.4 Neut % (Auto) 77.2 H Lymph % (Auto) 13.[address] [place] % (Auto) 8.2 Eos % (Auto) 0.2 Baso % (Auto) 0.4 Lymph # (Auto) 1.81 [place] # (Auto) 1.1 H Eos # (Auto) 0.0 Baso # (Auto) 0.1 Abs Immat Gran (auto) 0.05 H Absolute Neuts (auto) 10.3 H Absolute Nucleated RBC 0.0 Nucleated RBC % 0.0 Sodium 133 L Potassium 4.3 Chloride 95 L Carbon Dioxide 29 Anion Gap 9 BUN 21 H Creatinine 0.90 Estim Creat Clear Calc 44 Estimated GFR 60 Glucose 132 H Calcium 9.8 Total Bilirubin 0.4 Direct Bilirubin 0.0 AST 22 ALT 17 Alkaline Phosphatase 79 Total Protein 7.0 Albumin 4.0 SARS-CoV-2 RNA (RT-PCR) Negative Post-procedural complaints: none Patient Feedback: Patient satisfied with anesthetic care.
[2020-06-11 14:00] VITALS: BP 155/43; PULSE 53; RESP 16; TEMP 36; O2SAT 95
== END 2020-06-11 17:30 | DRG 493 ==
LOC: ANHED 20:28 → ANH3MED 20:36
PROVIDERS: Family Medicine; Orthopaedic Surgery; Physician Assistant; Physician Assistant Surgical; Admitting Provider Internal Medicine; Emergency Provider Emergency Medicine; PCP Internal Medicine; Visit Provider Internal Medicine
PROC: 0QSJ04Z Reposition Right Fibula with Internal Fixation Device, Open Approach (ICD-10-PCS; principal; 2020-06-10 15:15)
DX: S82.841A Displaced bimalleolar fracture of right lower leg, initial encounter for closed fracture (principal); I50.32 Chronic diastolic (congestive) heart failure; N39.0 Urinary tract infection, site not specified; W19.XXXA Unspecified fall, initial encounter; F41.8 Other specified anxiety disorders; K21.9 Gastro-esophageal reflux disease without esophagitis; E78.5 Hyperlipidemia, unspecified; M19.90 Unspecified osteoarthritis, unspecified site; E55.9 Vitamin D deficiency, unspecified; G25.81 Restless legs syndrome; E03.9 Hypothyroidism, unspecified; Z86.73 Personal history of transient ischemic attack (TIA), and cerebral infarction without residual deficits; I11.0 Hypertensive heart disease with heart failure; B96.20 Unspecified Escherichia coli [E. coli] as the cause of diseases classified elsewhere; Z66 Do not resuscitate; Z87.891 Personal history of nicotine dependence; R26.89 Other abnormalities of gait and mobility; Z20.828 Contact with and (suspected) exposure to other viral communicable diseases
CPT/HCPCS: 29515; 36415; 51701; 70450; 71045; 72125; 72170; 73600; 73610; 74178; 80048; 80076; 81001; 82306; 82550; 83735; 84132; 84300; 84439; 84443; 84480; 84484; 85025; 85610; 85730; 87077; 87086; 87088; 87186; 87635; 93005; 93306; 93880; 96361; 96365; 96375; 97110; 97116; 97161; 97164; 97165; 97530; 99285; A9270; C1713; C9803; G0378; J0131; J0360; J0690; J0696; J1100; J2370; J2405; J2704; J3010; J3370; J7030; J7120; Q9967; U0003

== ENCOUNTER 2020-12-15 14:43 | Outpatient (CLI) | payer MEDICARE, SELFPAY ==
--- NOTE | 2020-12-15 14:54 | ECHO_ITS ---
Patient Info Name: Suzanne Snider Age: 80 years : 1940 Gender: Female Ht: 64 in Wt: 158 lbs BSA: 1.82 m2 HR: 61 bpm BP: 148 / 79 mmHg Technical Quality: Good Exam Date: 12/15/2020 3:11 PM Exam Location: [facility] Patient Status: Outpatient Admit Date: 12/15/2020 Staff Ordering Physician: Kodak Hernandez DO Butter Fat Tester: Jessica Cross RDCS Attending Provider: Kodak Hernandez DO Referring Physician: Davdi LIRA; Exam Type: CA echo doppler color flow Study Info Indications - lymphedema hx/o TIA Complete two-dimensional, color flow and Doppler transthoracic echocardiogram is performed. Summary 1. Complete two-dimensional, color flow and Doppler transthoracic echocardiogram is performed. 2. Left ventricular chamber dimension is normal. 3. Left ventricular systolic function is normal, estimated at 65-70%. 4. There is mildly increased left ventricular wall thickness. 5. The left ventricular diastolic function is grade I diastolic dysfunction. 6. E/e' 12 is mildly elevated. 7. Left atrial chamber dimension is moderately enlarged. 8. There is mild aortic valve sclerosis. 9. The mitral valve has moderately calcified annulus. 10. There is mild mitral valve regurgitation. 11. There is mild tricuspid valve regurgitation. 12. No pulmonary hypertension, estimated pulmonary arterial systolic pressure is 30 mmHg. 13. There is small circumferential pericardial effusion. Left Ventricle E/e' 12 is mildly elevated. Left ventricular chamber dimension is normal. Left ventricular systolic function is normal, estimated at 65-70%. There is mildly increased left ventricular wall thickness. The left ventricular diastolic function is grade I diastolic dysfunction. Right Ventricle Right ventricular chamber dimension is normal. Right ventricular systolic function is normal. Left Atria Left atrial chamber dimension is moderately enlarged. Right Atria Right atrial chamber dimension is normal. Aortic Valve The aortic valve is trileaflet. There is mild aortic valve sclerosis. There is no aortic valve stenosis. There is no aortic valve regurgitation. Pulmonic Valve There is no pulmonic regurgitation. Mitral Valve The mitral valve has moderately calcified annulus. There is no mitral valve stenosis. There is mild mitral valve regurgitation. Tricuspid Valve There is mild tricuspid valve regurgitation. No pulmonary hypertension, estimated pulmonary arterial systolic pressure is 30 mmHg. Pericardium/Pleural There is small circumferential pericardial effusion. Inferior Vena Cava Normal inferior vena cava with >50% collapse upon inspiration consistent with normal right atrial pressure, 5 mmHg. Aorta The aortic root size at the sinus of Valsalva is normal. Left Ventricular Outflow Tract Name Value Normal LVOT 2D LVOT Diameter 2.0 cm LVOT Doppler LVOT Peak Gradient 5 mmHg LVOT Mean Gradient 3 mmHg LVOT VTI 27 cm LVOT VTI/AV VTI Ratio 1.0 LVOT Stroke
== END 2020-12-15 14:44 | disposition home or self-care (01) ==
LOC: ANHCARD 14:45
PROVIDERS: PCP Internal Medicine; Visit Provider Internal Medicine
DX: I89.0 Lymphedema, not elsewhere classified (principal); Z86.73 Personal history of transient ischemic attack (TIA), and cerebral infarction without residual deficits
CPT/HCPCS: 93306

== ENCOUNTER 2021-01-22 19:47 | Emergency (ER) | payer MEDICARE, SELFPAY ==
--- NOTE | ~2021-01-22 | XR_ITS ---
EXAMINATION: XR hand RT min 3V DATE: 01/22/2021 20:41 INDICATION: Right hand swelling TECHNIQUE: Posteroanterior, oblique and lateral views of the right hand were obtained. COMPARISON: None. FINDINGS: Bone alignment is normal. No fracture. Chondrocalcinosis at the right wrist the region of the triangu lar fibrocartilage complex. Polyarticular osteoarthritis, severe with erosive component at the second distal interphalangeal joint, severe at the first carpometacarpal joint with subarticular cystic ludin nge at the base of the first metacarpal. Moderate osteoarthritis at the triscaphe, first metacarpopha langeal, first interphalangeal and third and fifth distal interphalangeal joints. Mild osteoarthritis at the midcarpal, second metacarpophalangeal and at the remaining interphalangeal joints. Small amou nt of heterotopic ossification along the ulnar side of the third proximal interphalangeal joint sugge sting sequela of chronic injury to the ulnar collateral ligament. Prominent diffuse soft tissue swell ing about the hand and wrist. IMPRESSION: 1. Prominent soft tissue swelling about the right hand and wrist. No acute osseous abnormality. 2. Moderate to severe polyarticular osteoarthritis. Reviewed, dictated and finalized at location A. IMPRESSION: 1. Prominent soft tissue swelling about the right hand and wrist. No acute osse ous abnormality. 2. Moderate to severe polyarticular osteoarthritis.
[2021-01-22 19:48] VITALS: BP 174/69; PULSE 72; RESP 16; TEMP 37.3; O2SAT 96
--- NOTE | 2021-01-22 21:11 | ED.EXTPRO ---
HPI - Extremity Problem General Chief complaint: Extremity Problem,Nontraumatic Stated complaint: red swollen extremeties, loc today Time Seen by Provider: 01/22/21 19:58 Source: patient Mode of arrival: EMS Limitations: clinical condition History of Present Illness HPI Narrative: 80-year-old female She is a bit of a reluctant historian and mentions that she did not want to come to the hospital but her daughter called an ambulance and made her go The patient does not identify any particular primary acute concern She says that her legs are always swollen because she has lymphedema and says that they are not bothering her in their current state Her right hand appears to be swollen and mildly erythematous, and she says that this likewise is not especially bothersome to her, that it just goes back and forth between her 2 hands like that, and that yesterday and the day before yesterday her left hand had the same appearance but seemed to resolve overnight and her right hand became involved She does not complain of of chest pain, shortness of breath, abdominal pain or GI upset, or urinary symptoms Daughter arrived later with additional history, she was worried about the hand issue, she was worried that she had not been using her lymphedema wraps, and she was worried that she was having more trouble getting up and around at home, possibly after taking her ropinirole for restless legs Related Data Home Medications Medication Instructions Recorded Confirmed solifenacin 5 mg tablet 5 mg PO DAILY 02/08/20 12/09/20 aspirin 81 mg PO DAILY 06/04/20 12/09/20 Allergies Allergy/AdvReac Type Severity Reaction Status Date / Time codeine AdvReac Mild Rash Verified 12/31/20 14:14 Review of Systems Review of Systems: All systems reviewed & are unremarkable except as noted in HPI and below ROS unobtainable: Yes unobtainable due to mental status and other (Poor historian) Constitutional: Constitutional: Denies fever(s) and Denies headache(s) ENT: Denies headache(s) and Denies sore throat Cardiovascular: Cardiovascular: Denies chest pain and Denies dyspnea Respiratory: Respiratory: Denies cough and Denies dyspnea Gastrointestinal: Gastrointestinal: Denies abdominal pain, Denies diarrhea and Denies vomiting Genitourinary: Genitourinary: Denies urinary frequency and Denies dysuria Musculoskeletal: Musculoskeletal: Denies deformity, Denies arthralgias, Denies joint swelling and Denies numbness Integumentary/Breasts: Skin/Breast: Denies rash and Denies wounds Neurologic: Denies headache(s), Denies focal weakness and Denies numbness Psychiatric: Psychiatric: Reports no additional psychiatric complaints Endocrine: Endocrine: Reports no additional endocrine complaints Hematologic/Lymphatic: Hematologic/Lymphatic: Reports no additional hematologic/lymphatic complaints Allergic/Immunologic: Allergic/Immunologic: Reports no additional allergic/immunologic complaints [facility] Past Medical History Medical History (Updated 01/22/21 @ 23:08 by Ashwin Segundo MD) Anxiety and depression Chronic midline low back pain without sciatica Depression with anxiety Essential (primary) hypertension Gastroesophageal reflux disease History of transient ischemic attack and cerebral infarction Hypothyroidism (acquired) Low vitamin B12 level Mixed hyperlipidemia Osteoarthritis Restless legs syndrome Urge incontinence of urine Vitamin D deficiency Surgical History Surgical History History of bilateral carotid endarterectomy left carotid endarterectomy June 2004 followed by right carotid endarterectomy a couple years later History of carpal tunnel surgery right - 1996 History of tubal ligation 1977 Hx of tonsillectomy 1957 Family History Family History Mother Patient's mother is Family history of pancreati
[2021-01-22] MEDS: COLCHICINE 0.6 MG TABLET 1.2 MG PO (21:29)
[2021-01-22 21:48] LABS: Basophils Absolute Auto 0.1 K/mm3 (0.0-0.1); Basophils Percent Auto 0.5 % (0.2-1.2); Eosinophils Percent Auto 0.2 % (0-4.4); Hematocrit 39.5 % (37.0-47.0); Hemoglobin 12.7 g/dL (12.0-15.0); Immature Granulocyte Absolute 0.03 K/mm3 (0.00-0.031); Immature Granulocyte Percent A 0.3 % (0-0.5); Lymphocytes Absolute Auto 1.08 K/mm3 (0.9-3.2); Lymphocytes Percent Auto 10.8 % (18.3-44.2); Mean Corpuscular HGB Conc 32.2 g/dl (32-36); Mean Corpuscular Hemoglobin 28.7 pg (26-34); Mean Corpuscular Volume 89.2 fl (80-100); Mean Platelet Volume 9.3 fl (7.4-10.4); Monocytes Absolute Auto 1.2 K/mm3 (0.1-0.6); Neutrophils Absolute Auto 7.6 K/mm3 (1.3-6.7); Neutrophils Percent Auto 76.2 % (45.5-73.1); Platelet Count Result 342 k/mm3 (150-375); Red Blood Count 4.43 M/mm3 (4.2-5.4); Red Cell Distribution Width 14.8 % (11.5-14.5)
[2021-01-22 21:59] LABS: Anion Gap 5 mmol/L (8-16); Blood Urea Nitrogen 13 mg/dL (7-17); Calcium 9.4 mg/dL (8.4-10.2); Carbon Dioxide 34 mmol/L (22-30); Chloride 99 mmol/L (98-107); Estimated CRCL calculation 54 ml/min; Estimated Glomerular Filt Rate > 60; Glucose 115 mg/dL (65-105); Potassium 3.9 mmol/L (3.4-5.0); Sodium 138 mmol/L (137-145); Uric Acid 3.2 mg/dL (2.5-7.5)
[2021-01-22 22:11] LABS: CRP 13.7 mg/dL (<1.0)
[2021-01-22 22:15] LABS: Erythrocyte Sedimentation Rate 22 mm/hr (0-20)
[2021-01-22] MEDS: BUMETANIDE INJ 1 MG/4 ML VIAL 2 MG IV PUSH (22:38)
[2021-01-22 23:53] VITALS: BP 175/61; PULSE 72; RESP 18; O2SAT 97
== END 2021-01-22 23:53 | disposition home or self-care (01) ==
PROVIDERS: Emergency Provider Emergency Medicine; PCP Internal Medicine
DX: M19.041 Primary osteoarthritis, right hand (principal); M18.9 Osteoarthritis of first carpometacarpal joint, unspecified; R60.9 Edema, unspecified; I89.0 Lymphedema, not elsewhere classified; G25.81 Restless legs syndrome; I10 Essential (primary) hypertension; K21.9 Gastro-esophageal reflux disease without esophagitis; E03.9 Hypothyroidism, unspecified; E78.2 Mixed hyperlipidemia; E55.9 Vitamin D deficiency, unspecified; Z87.891 Personal history of nicotine dependence; Z86.73 Personal history of transient ischemic attack (TIA), and cerebral infarction without residual deficits; Z79.82 Long term (current) use of aspirin
CPT/HCPCS: 36415; 73130; 80048; 84550; 85025; 85652; 86140; 99283; A9270

== ENCOUNTER 2021-01-29 14:30 | Outpatient (RCR) | payer MEDICARE, SELFPAY ==
--- NOTE | 2020-11-28 12:34 | PTOPEVAL ---
Thank you for referring Suzanne Snider to [facility].? The patient is scheduled to be seen for therapy? ____x/week for ___ weeks. Please review, sign, date and return this plan of care MARGO. I agree with and certify that the following plan of care is medically necessary. Referring Physician Date Admitting Provider: Attending Provider: Kodak Hernandez DO Referring Provider: *PT Outpatient Evaluation Start: 11/28/20 09:50 Freq: Status: Active Protocol: Document 11/28/20 09:45 JOSEFINA (Rec: 11/28/20 11:07 JOSEFINA [id number]) Therapy Assessment Status Assessment Status Assessment Status Evaluation Outpatient Past Medical History Past Medical History Source of Past Medical History Recalled from Previous Visit, Confirmed with Patient/Family Neurological History Hx Transient Ischemic Attacks (TIA) Yes: x2 Hx Other Neurological Disorders Yes Cardiovascular History Hx Hypertension Yes: meds Hx Other Cardiac Disorders Yes: R and L carotid artery surgery Respiratory History Hx Respiratory Disorders No Significant History Gastrointestinal History Hx Hemorrhoids Yes: 3 or 4 times Genitourinary History Hx Other Genitourinary Disorders Yes: pt states overactive bladder - to have surgery Musculoskeletal History Hx Back Pain Yes: chronic back pain Hx Crutches or Walker Use Yes Query Text:If Yes, Enter Crutches, Walker, or Both in the Comment Hx Orthopedic Surgery Yes: R ankle fracture with ORIF- walker use since Hx Other Musculoskeletal Disorders Yes: falls Hematological History Hx Hematological Disorders No Significant History Endocrine History Hx Hypothyroidism Yes: meds HEENT History Hx Tonsillectomy Yes Integumentary History Hx Skin Disorders No Significant History Reproductive History Hx Reproductive Disorders No Significant History Psychosocial History Hx Anxiety Yes Hx Depression Yes: occasionally Pain History History of Any Previous or Ongoing No Significant History Instance of Pain Evaluation Information Problem Diagnosis lymphedema LE's Onset 2020 Prior Level of Function Activity Level (Last 3 Months) Occupation retired Home Setting Home Type House,Multiple Levels Environmental Barriers Stairs, 2-4,Stairs, Greater than 4 Living Situation Alone Support Available Local Family Support Mobility Assistive Devices (Used Last 3 Walker, Rollator Months) Comments Additional Prior Level
--- NOTE | 2020-11-28 12:34 | PTOPEVAL ---
PHYSICAL THERAPY EVALUATION AND PLAN OF CARE 11-28-20 Thank you for referring Suzanne Snider to [facility].? She is scheduled to be seen for therapy? 2-3 x/week for 5 weeks. Bonny's treatment will begin with treatment for B LE lymphedema, and then progress to treatment of LE strength, gait and balance skills. Please review, sign, date and return this plan of care MARGO. I agree with and certify that the following plan of care is medically necessary. Referring Physician Date Attending Provider: Kodak Hernandez DO *PT Outpatient Evaluation Document 11/28/20 09:45 JOSEFINA (Rec: 11/28/20 11:07 JOSEFINA [id number]) Outpatient Past Medical History Past Medical History Source of Past Medical History Recalled from Previous Visit, Confirmed with Patient/Family Neurological History Hx Transient Ischemic Attacks (TIA) Yes: x2 Hx Other Neurological Disorders Yes Cardiovascular History Hx Hypertension Yes: meds Hx Other Cardiac Disorders Yes: R and L carotid artery surgery Respiratory History Hx Respiratory Disorders No Significant History Gastrointestinal History Hx Hemorrhoids Yes: 3 or 4 times Genitourinary History Hx Other Genitourinary Disorders Yes: pt states overactive bladder - to have surgery Musculoskeletal History Hx Back Pain Yes: chronic back pain Hx Crutches or Walker Use Yes Query Text:If Yes, Enter Crutches, Walker, or Both in the Comment Hx Orthopedic Surgery Yes: R ankle fracture with ORIF- walker use since Hx Other Musculoskeletal Disorders Yes: falls Hematological History Hx Hematological Disorders No Significant History Endocrine History Hx Hypothyroidism Yes: meds HEENT History Hx Tonsillectomy Yes Integumentary History Hx Skin Disorders No Significant History Reproductive History Hx Reproductive Disorders No Significant History Psychosocial History Hx Anxiety Yes Hx Depression Yes: occasionally Pain History History of Any Previous or Ongoing No Significant History Instance of Pain Evaluation Information Problem Diagnosis lymphedema LE's Onset 2020 Prior Level of Function Activity Level (Last 3 Months) Occupation retired Home Setting Home Type House,Multiple Levels Environmental Barriers Stairs, 2-4,Stairs, Greater than 4 Living Situation Alone Support Available Local Family Support Mobility Assistive Devices (Used Last 3 Walker, Rollator Months) Comments Additional Prior Level of Function at home alone, have had one Comments
--- NOTE | 2020-12-19 10:31 | PCPTNOTE ---
pt called and stated she was not feeling well. Called pt back to had to leave voicemail..
--- NOTE | 2020-12-29 11:52 | PCPTNOTE ---
Addendum entered by Karmen Leon, PT 12/29/20 15:48: pt's chart was reviewed with measurements from Fridays treatment session; with [employer]id Juxtafit essential, lower leg: Medium size, long garment; it comes with a PAC band; Called Sanam at [facility]. She will contact pt about it and order it for her; it may be received in 2 days. Original Note: Received phone call from Sanam at [facility] RE: pt compression garment. Pt is calling [facility], asking them to order her garment; Discussed with Sanam which garment was recommended for pt--Farrow. They do not stock Farrow and cannot order. She told pt, then called back again, they talked with Clifton Breen and she recommended the Medi equivalent of Juxtfit garment. Pt wants [facility] to order Juxtafit for her. Suzanne has compression wraps on her leg, so at next PT appt, she will be measured for Juxtafit and measurements will be sent to Sanam for them to order for her.
--- NOTE | 2021-01-02 11:47 | PTOPEVAL ---
PHYSICAL THERAPY RE-EVALUATION AND UPDATED PLAN OF CARE 01-02-21 Refer to the clinical summary below for her status with today's reevaluation, compared to the initial evaluation. Suzanne has improved with her LE lymphedema, but for 3 days prior to this reeval, she did not have any compression on her legs and the size has increased. The goals for her strength and mobility were partially achieved. The lymphedema goals were partially met, for the education component. Continue PT 3x/week for 3 weeks. Thank you for referring Suzanne Snider to [facility].? Please review, sign, date and return this plan of care MARGO. I agree with and certify that the following plan of care is medically necessary. Referring Physician Date Attending Provider: Kodak Hernandez, Document 01/02/21 11:00 JOSEFINA (Rec: 01/02/21 11:47 JOSEFINA [id number]) Assessment Status Re-evaluation Subjective Information Suzanne reports: saw dr and he Query Text:As Reported By Patient/ cleared her for continued Family treatment of legs, heart is OK ; want to continue to get legs smaller and better; has not had any falls due to balance, but did pass out briefly- may be from her heart ; Pain Assessment Timing of Pain Assessment Timing of Pain Assessment Assessment Self Report Self Report Pain Level 0 Pain Score Pain Score 0: Self Report Additional Pain Score Comments legs not painful, but heavy and hard to move ankles Lower Extremity Muscle Strength Testing General Lower Extremity Strength Gross Lower Extremity Strength supine: SLR R 20/ L 22 reps; sit/stand from 18 seat: without UE use x 5 reps, with wide base of support and multiple trials to attempt standing; supine/sit indep with good speed and moving LE's on/off mat; Balance Assessment Tinetti Balance Assessment Sitting Balance Steady, safe Ability to Arise Able, w/o using arms Attempts to Arise Able, requires >1 attempt Immediate Standing Balance Steady with support Standing Balance Steady, wide stance Nudged Response Steady Standing with Eyes Closed Unsteady Step Pattern Turning 360 Degrees Discontinuous steps Stability Turning 360 Degrees Unsteady, grabs/staggers Sitting Down Uses arms or unsteady Initiation of Gait No hesitancy Right Foot Step Length Does not pass stance ft. Right Foot Step Height Completely clears floor Left Foot Step Sandi
--- NOTE | 2021-01-07 13:47 | PCPTNOTE ---
pt was called to see if she could come in earlier and pt stated she would not have a ride and then said she did not have a ride for 5pm her appt time either.
--- NOTE | 2021-01-19 09:56 | PCPTNOTE ---
Pt called and cancelled due to dr. appointment.
--- NOTE | 2021-01-20 10:25 | PCPTNOTE ---
Pt called and cancelled , due to hand swelling.
--- NOTE | 2021-01-23 15:33 | PCPTNOTE ---
pt called and canceled today's reevaluation; rescheduled for next week;
--- NOTE | 2021-01-28 11:32 | PCPTNOTE ---
pt called and canceled today's reevaluation due to not having transportation; rescheduled appt;
--- NOTE | 2021-01-28 13:28 | PCPTNOTE ---
Pt called and cancelled ,no transportation today.
--- NOTE | 2021-01-29 15:27 | PTOPEVAL ---
PHYSICAL THERAPY RE-EVALUATION AND UPDATED PLAN OF CARE 01-29-21 Refer to the clinical summary below for her status with today's reeval, compared to her last reevaluation. She has improved with the LE lymphedema and the treatment for her lymphedema of LE's is being discontinued. PT will continue 2x/week for 3 weeks, for LE strengthening, gait and balance retraining. Thank you for referring Suzanne Snider to [facility].? Please review, sign, date and return this updated plan of care MARGO. I agree with and certify that the following plan of care is medically necessary. Referring Physician Date Attending Provider: Kodak Hernandez, Document 01/29/21 14:31 JOSEFINA (Rec: 01/29/21 15:20 JOSEFINA [id number]) Assessment Status Re-evaluation Subjective Information Suzanne reports: legs are Query Text:As Reported By Patient/ better- less swollen; is doing Family OK with the velcro garments on her legs; walking balance is off; use wheeled walker in home carry things, or cane; have not had any falls, but catch self on furniture at home; doing leg exercises at home; Pain Assessment Timing of Pain Assessment Timing of Pain Assessment Assessment Self Report Self Report Pain Level 0 Pain Score Pain Score 0: Self Report Lower Extremity Muscle Strength Testing General Lower Extremity Strength Gross Lower Extremity Strength standing with 1 UE hold: 15 reps R and L hip abduction, flexion and extension Transfer Assessment Bed Transfer Assessment Sit to Stand Bed Transfer Ability Independent Stand to Sit Bed Transfer Ability Independent Ability to Transfer To/From the Bed Independent Floor Transfer Assessment Sit to Floor Transfer Ability Standby Assistance Floor to Sit Transfer Ability Standby Assistance Cues Needed for Floor Transfer Verbal Floor Transfer Comments use of UE on mat to assist with transfer; SBA for safety and verbal cues for technique Bed Mobility Assessment Bed Mobility Bed Type Mat Overall Bed Mobility Ability Independent Supine to Sit Ability Independent Sit to Supine Ability Independent Balance Assessment Tinetti Balance Assessment Sitting Balance Steady, safe Ability to Arise Able, w/o using arms Attempts to Arise Arises on 1st attempt Immediate Standing Balance Steady with support Standing Balance Steady, wide stance Nudged Response Steady Standing with Eyes Closed Steady Step Pattern Turning 360 Degrees Discontinuous steps Stability Turning 360 Degrees Steady Sitting Down
--- NOTE | 2021-02-27 16:15 | PCPTNOTE ---
PHYSICAL THERAPY DISCHARGE 02-27-21 Attending Provider: Kodak Hernandez DO Patient:Suzanne Snider Date of :1940 Mrs. Snider has not returned for any further treatments since the reevaluation on 01/29/2021, therefore she will be discharged at this time. Refer to the reeval progress report for her status at the last session. The goals were not assessed. Thank you for referring Mrs. Snider to [facility]. Please review, sign, date and return this discharge summary MARGO. I have been updated about the patient's current status and I agree with discharge from the above service at this time. Referring Physician Date
--- NOTE | 2021-08-03 14:12 | PCPTNOTE ---
late note: Suzanne was seen on 12/17/20 for Bi LE pt received in addition to manual lymph drainage and compression wrapping. 1 unit of intermittent compression treatment to BI LE for 15 minutes @ 40 mmHG.
--- NOTE | 2021-08-03 14:16 | PCPTNOTE ---
late note; Pt was seen on 01/08/21 for bi LE lymphedema and received 1 unit of intermittent compression therapy to Bi LE for 15 Minutes @ 40 mmHG.
== END 2021-02-26 08:29 | disposition home or self-care (01) ==
LOC: ANHPT 14:30
PROVIDERS: PCP Internal Medicine; Visit Provider Internal Medicine
DX: I89.0 Lymphedema, not elsewhere classified (principal)
CPT/HCPCS: 29581; 97016; 97110; 97140; 97162

== ENCOUNTER 2021-03-18 21:08 | Inpatient (IN) | payer MEDICARE, SELFPAY ==
[2021-03-18] VITALS (11 sets, daily range): BP systolic 196–219; BP diastolic 92–98; PULSE 90–99; RESP 11–27; TEMP 36.7; O2SAT 90–96
--- NOTE | ~2021-03-18 | XR_ITS ---
EXAMINATION: XR chest 1V portable DATE: 03/19/2021 00:28 INDICATION: Shortness of breath. Transient alteration of awareness. TECHNIQUE: frontal view of the chest was obtained. COMPARISON: Chest radiograph dated 06/04/2020 FINDINGS: Chronic elevation of the right hemidiaphragm. Mild airspace opacities at the bilateral lower lung zon es which could represent atelectasis and/or pneumonia. There is also a slightly increased interstitia l pattern suggesting mild pulmonary edema. No pleural effusion or pneumothorax. Cardiomegaly. Surgica l clips at the left base of the neck. IMPRESSION: 1. Mild airspace opacity in the bilateral lower lung zones which could represent atelectasis and/or p neumonia. 2. Possible mild pulmonary edema. 3. Cardiomegaly. 4. Chronic elevation of the right hemidiaphragm. Reviewed, dictated and finalized at location A. IMPRESSION: 1. Mild airspace opacity in the bilateral lower lung zones which could represen t atelectasis and/or pneumonia. 2. Possible mild pulmonary edema. 3. Cardiomegaly. 4. Chronic elevation of the right hemidiaphragm.
--- NOTE | ~2021-03-18 | CT_ITS ---
EXAMINATION: CT brain wo con DATE: 03/18/2021 21:52 INDICATION: Loss of consciousness. Fall. TECHNIQUE: Computed tomography (CT) of the head was performed without intravenous contrast. The mA wa s adjusted according to patient size. Iterative reconstruction technique was employed. The dose-lengt h product was 605.33 mGy-cm. COMPARISON: Head CT 06/04/2020 FINDINGS: Motion artifact is noted. There are old infarcts in the bilateral basal ganglia and interna l capsules. There is an old infarct in right parietal lobe. There is no intracranial hemorrhage, acut e infarction, or abnormal intracranial mass lesion. The ventricles are normal in size. There is a lef t-sided scalp hematoma. There is right frontal scalp soft tissue swelling. There is mild mucosal thic kening in the paranasal sinuses. The orbits are normal. The mastoid air cells are normal. IMPRESSION: 1. Old infarcts involving the bilateral basal ganglia and internal capsules and right parietal lobe. Reviewed, dictated and finalized at location A.
--- NOTE | ~2021-03-18 | CT_ITS ---
EXAMINATION: CT cervical spine wo con DATE: 03/18/2021 21:52 INDICATION: Head injury. TECHNIQUE: Computed tomography (CT) of the cervical spine was performed without intravenous contrast. Automated exposure control and iterative reconstruction technique were employed. The dose-length pro duct was 305.46 mGy-cm. COMPARISON: CT cervical spine 06/04/2020 FINDINGS: There is 9 degrees dextrocurvature of cervical spine. There is 2 mm retrolisthesis of C6 on C7. Vertebral body heights are normal. There is severely decreased disc height from C3-C4 through C7 -T1. The following disc levels are specifically discussed: C2-C3: There is no uncovertebral joint osteoarthritis. There is severe bilateral facet joint osteoart hritis. There is no neural foraminal stenosis. There is no central canal stenosis. C3-C4: There is severe bilateral uncovertebral joint osteoarthritis. There is moderate right and migdalia re left facet joint osteoarthritis. There is mild right and moderate left neural foraminal stenosis. There is mild central canal stenosis. C4-C5: There is severe bilateral uncovertebral joint osteoarthritis. There is mild right and severe l eft facet joint osteoarthritis. There is mild right and moderate left neural foraminal stenosis. Ther e is mild central canal stenosis. C5-C6: There is severe bilateral uncovertebral joint osteoarthritis. There is mild bilateral facet charlie int osteoarthritis. There is moderate right and mild left neural foraminal stenosis. There is mild ce ntral canal stenosis. C6-C7: There is severe bilateral uncovertebral joint osteoarthritis. There is moderate bilateral face t joint osteoarthritis. There is moderate bilateral neural foraminal stenosis. There is mild central canal stenosis. C7-T1: There is severe bilateral uncovertebral joint osteoarthritis. There is severe bilateral facet joint osteoarthritis. There is mild bilateral neural foraminal stenosis. There is mild central canal stenosis. IMPRESSION: 1. No fracture. 2. Severe cervical spondylosis. Reviewed, dictated and finalized at location A.
--- NOTE | ~2021-03-18 | CT_ITS ---
EXAMINATION: CT abdomen pelvis wo con DATE: 03/24/2021 16:08 INDICATION: Gross hematuria. TECHNIQUE: Computed tomography (CT) of the abdomen and pelvis was performed without intravenous contr ast. Automated exposure control and iterative reconstruction technique were employed. The dose-length product was 1205.56 mGy-cm. COMPARISON: CT abdomen and pelvis 06/08/2020 FINDINGS: The visualized portions of the lung bases demonstrate mild atelectasis. There are trace ple ural effusions. The heart size is normal. There are coronary artery calcifications. There is a modera te-sized pericardial effusion. The central pulmonary arteries are enlarged, consistent with pulmonary arterial hypertension. There is a small sliding hiatal hernia. The liver and gallbladder are normal. Calcifications in the spleen are consistent with old granulomatous disease. The pancreas, adrenal gl ands, and kidneys are normal. There is no urolithiasis. There is gas in the bladder lumen, which may be from recent instrumentation. There is diverticulosis of the colon without evidence of diverticulit is. The appendix is normal. There are no pathologically enlarged lymph nodes. There is a left inguina l hernia containing fat. There is severe thoracolumbar spondylosis. There is thoracolumbar dextroscol iosis. IMPRESSION: 1. No etiology for hematuria. 2. Gas in the bladder lumen, which may be from recent instrumentation. 3. Moderate-sized pericardial effusion. Reviewed, dictated and finalized at location A.
--- NOTE | ~2021-03-18 | US_ITS ---
EXAMINATION: US pelvic complete DATE: 03/23/2021 15:00 INDICATION: Postmenopausal bleeding. TECHNIQUE: Multiple transabdominal sonographic images of the pelvis were obtained. COMPARISON: CT abdomen and pelvis 07/08/2020 FINDINGS: The uterus measures 5.8 x 2.5 x 3.6 cm. There is no free fluid in the pelvis. The endometrial complex measures 3 mm in thickness. The ovaries are not visualized. IMPRESSION: 1. No etiology for the patient's symptoms. Reviewed, dictated and finalized at location A.
--- NOTE | ~2021-03-18 | MR_ITS ---
EXAMINATION: MR brain/brain stem wo/w con DATE: 03/19/2021 16:15 INDICATION: Altered mental status. TECHNIQUE: Magnetic resonance imaging (MRI) of the brain and brainstem was performed without and with 15 mL MultiHance intravenous contrast. Sequences included sagittal and axial T1-weighted FSE, axial diffusion-weighted FS EPI, axial T2*-weighted GRE, axial T2-weighted FLAIR Propeller, and axial T2-we ighted Propeller. Postcontrast sequences included axial and coronal T1-weighted FSE. Apparent diffusi on coefficient (ADC) maps were created. COMPARISON: Brain MRI 11/21/2007, head CT 03/18/2021 FINDINGS: Motion artifact is noted. There is an old infarct involving the left basal ganglia, interna l capsule, and left frontal lobe shahid radiata. There are old lacunar infarcts in the right basal ga nglia. There is an old infarct in the right parietal lobe. There are scattered areas of nonspecific i ncreased T2-weighted signal intensity in the cerebral white matter, which is within normal limits for the patient's age. There is no intracranial hemorrhage, acute infarction, or abnormal intracranial m ass lesion. The ventricles are normal in size. The orbits are normal. The paranasal sinuses are clear . The mastoid air cells are normal. IMPRESSION: 1. Old infarcts involving the bilateral basal ganglia, left internal capsule, left frontal lobe coron a radiata, and right parietal lobe. Reviewed, dictated and finalized at location A. IMPRESSION: 1. Old infarcts involving the bilateral basal ganglia, left internal capsule, l eft frontal lobe shahid radiata, and right parietal lobe.
--- NOTE | ~2021-03-18 | XR_ITS ---
EXAMINATION: XR abdomen/kub 1V EXAM DATE: 03/23/2021 16:05 INDICATION: Hematuria. TECHNIQUE: Frontal projection of the upper abdomen, frontal projection lower abdomen/pelvis for inter pretation. There are no prior studies for comparison. FINDINGS: There is moderate amount of colonic stool and gas. No small bowel dilation, nonobstructiv e bowel gas pattern. Vascular calcifications. There is no organomegaly suspected. Moderate lumbar spondylosis and mild scoliosis. Some right pleural blunting which is probably chronic, possible keeley diaphragm paralysis. IMPRESSION: 1. Moderate amount of colonic stool. 2. Possible right hemidiaphragm paralysis. Reviewed, dictated and finalized at location A.
--- NOTE | 2021-03-18 21:19 | ECG_ITS ---
Measurements Intervals Jachin Rate: 95 P: -27 TN: 105 QRS: -16 QRSD: 106 T: 79 QT: 321 QTc: 404 Interpretive Statements SINUS RHYTHM WITH SHORT TN INTERVAL ATRIAL AND VENTRICULAR PREMATURE COMPLEXES BORDERLINE ST-T WAVE ABNORMALITY- ANTEROLAT/HIGH LAT LEADS BASELINE ARTIFACT- I, II, III, AVR, AVF, V1-V6 ABNORMAL ECG Electronically Signed On 03-19-2021 6:23:14 CDT by Jarred Foy D.O.
--- NOTE | 2021-03-18 21:50 | PC.NURSE ---
pt pleasantly confused. no family present since arrival in ed. no apparent injuries noted, but pt does have purple discoloration to right forearm - appears like petechia. No complaints of pain. pt unable to answer more than yes/no basic questions. urine obtained via straight cath and sent to lab. pt's bladder drained of 800 ml of clear yellow urine.
--- NOTE | 2021-03-18 22:09 | PC.NURSE ---
Pt to room 7 from xray. daughter reports pt c/o irregular heartbeat that is fast x 2 months. pitting edema to ble.
[2021-03-18 22:19] LABS: Add Urine Microscopic? YES; Appearance Urine Clear (Clear); Bacteria Urine Trace /hpf; Bilirubin Urine Negative (Negative); Blood Urine 1+ (Negative); Color Urine Straw (Yellow); Glucose Urine UA Negative (Negative); Ketones Urine Trace mg/dL (Negative); Leukocyte Esterase Ur Negative LEU/UL (Negative); Nitrate Urine Negative (Negative); Protein Urine 3+ mg/dL (Negative); Specific Grav Ur 1.008 (1.001-1.035); Urobilinogen Urine Negative mg/dL (<2.0); WBC Urine 0-3 /hpf
--- NOTE | 2021-03-18 23:10 | PC.NURSE ---
Unable to get IV access or obtain blood as ordered. IV placed per US - guidance. ED MD at bedside attempting to obtain blood for lab.
[2021-03-18 23:37] LABS: Basophils Absolute Auto 0.1 K/mm3 (0.0-0.1); Basophils Percent Auto 0.5 % (0.2-1.2); Eosinophils Percent Auto 0.1 % (0-4.4); Hematocrit 45.8 % (37.0-47.0); Immature Granulocyte Absolute 0.08 K/mm3 (0.00-0.031); Immature Granulocyte Percent A 0.5 % (0-0.5); Lymphocytes Absolute Auto 1.44 K/mm3 (0.9-3.2); Lymphocytes Percent Auto 8.3 % (18.3-44.2); Mean Corpuscular HGB Conc 32.8 g/dl (32-36); Mean Corpuscular Hemoglobin 28.4 pg (26-34); Mean Corpuscular Volume 86.7 fl (80-100); Monocytes Absolute Auto 1.6 K/mm3 (0.1-0.6); Monocytes Percent Auto 9.1 % (2.6-8.5); Neutrophils Absolute Auto 14.1 K/mm3 (1.3-6.7); Neutrophils Percent Auto 81.5 % (45.5-73.1); Platelet Count Result 344 k/mm3 (150-375); Red Blood Count 5.28 M/mm3 (4.2-5.4); Red Cell Distribution Width 14.3 % (11.5-14.5); White Blood Count 17.3 K/mm3 (4.5-10.0)
[2021-03-19] VITALS (17 sets, daily range): BP systolic 122–176; BP diastolic 38–99; PULSE 73–104; RESP 15–23; TEMP 36.4–37.1; O2SAT 94–100; BMI 30.9
[2021-03-19 00:01] LABS: Alanine Aminotransferase 19 U/L (4-35); Albumin Level 4.3 g/dL (3.5-5.1); Alkaline Phosphatase 81 U/L (38-126); Anion Gap 7 mmol/L (8-16); Aspartate Amino Transferase 51 U/L (14-36); Blood Urea Nitrogen 9 mg/dL (7-17); Calcium 9.7 mg/dL (8.4-10.2); Carbon Dioxide 29 mmol/L (22-30); Chloride 100 mmol/L (98-107); Estimated CRCL calculation 95 ml/min; Estimated Glomerular Filt Rate > 60; Glucose 120 mg/dL (65-105); Potassium 3.7 mmol/L (3.4-5.0); Sodium 136 mmol/L (137-145)
[2021-03-19] MEDS: hydrALAZINE HCL 20 MG/ML VIAL 10 MG IV PUSH (00:02)
[2021-03-19 00:19] LABS: NT Pro B Type Natriuretic Pept 1950 pg/mL (5-100); Troponin I 0.102 ng/mL (0.000-0.034)
[2021-03-19] MEDS: SODIUM CHLORIDE 0.9% IV 1,000 ML 150 ML IV CONT (00:45)
--- NOTE | 2021-03-19 00:55 | ED.FALL ---
HPI - Fall General Chief Complaint: Fall Stated Complaint: Fall Source: EMS Mode of arrival: EMS Limitations: altered mental status History of Present Illness HPI Narrative: 81-year-old with a history of hypertension, unstable gait, chronic lymphedema of both lower extremities, chronic low back pain , restless leg syndrome was brought in from home by EMS with complaints of fall. Patient daughter states that they were out for few hours and she was found on the floor naked. Patient daughter also mentions for the past 3 days she has been more confused than normal. She also has a habit of exchanging pain pills with her friends. However she denied taking any other pills other than tramadol. No history of fever or chills. Patient denies any chest pain or shortness of breath. complaint: fall Onset (ago): hour(s) (6) Fall from: standing Fall witnessed: yes, by family Place fall occurred: home Loss of consciousness: unsure Symptoms prior to fall: none Context: history of frequent falls Related Data Home Medications Medication Instructions Recorded Confirmed furosemide 03/19/21 levothyroxine 03/19/21 Allergies Allergy/AdvReac Type Severity Reaction Status Date / Time codeine AdvReac Mild Rash Verified 12/31/20 14:14 Review of Systems Review of Systems: All systems reviewed & are unremarkable except as noted in HPI and below Cardiovascular: Cardiovascular: Reports no additional cardiovascular complaints Respiratory: Respiratory: Reports no additional respiratory complaints Gastrointestinal: Gastrointestinal: Reports no additional gastrointestinal complaints Musculoskeletal: Musculoskeletal: Reports back pain and Reports muscle cramps Neurologic: Reports system reviewed and no additional complaints, except as documented [facility] Past Medical History Medical History (Updated 03/19/21 @ 01:06 by Jai Rivera MD) Anxiety and depression Chronic midline low back pain without sciatica Depression with anxiety Essential (primary) hypertension Gastroesophageal reflux disease History of transient ischemic attack and cerebral infarction Hypothyroidism (acquired) Low vitamin B12 level Mixed hyperlipidemia Osteoarthritis Restless legs syndrome Urge incontinence of urine Vitamin D deficiency Surgical History Surgical History History of bilateral carotid endarterectomy left carotid endarterectomy June 2004 followed by right carotid endarterectomy a couple years later History of carpal tunnel surgery right - 1996 History of tubal ligation 1977 Hx of tonsillectomy 1957 Family History Family History Mother Patient's mother is Family history of pancreatic cancer Cerebrovascular accident Hypertension Family history of cardiovascular disease Father Acute myocardial infarction Patient's father is Hypertension Family history of cardiovascular disease Sibling Family history of transient ischemic attacks Social History Social History Social History: Ms. Snider lives at home alone in [place]. She denies alcohol use. Remote history of occasional cigarette smoking and quit in the . Denies other substance use. Code status was discussed and she wishes her code status to be Do Not Resuscitate. PCP: Dr Hernandez Years smoked: 20 Tobacco type: cigarettes Second hand tobacco smoke exposure: No Smoking end date: 09/26/79 Alcohol intake: never Substance use: never Gender identity (if verbalized by the patient): Female Spiritual care concerns: No Exam Narrative: Exam Narrative: GENERAL: Confused, well-nourished, and in no acute distress. HEAD: Normocephalic, atraumatic. EYES: PERRLA and EOMI. ENT: Nares clear, no rhinorrhea or epistaxis. Mucous membranes moist. NECK: Supple
--- NOTE | 2021-03-19 01:47 | PC.NURSE ---
0145 report received from FAWAD Ovalle.
[2021-03-19] MEDS: FUROSEMIDE INJ 40 MG/4 ML VIAL IV PUSH ×4 (01:49→20:40)
--- NOTE | 2021-03-19 02:28 | ADMGEN ---
This patient, Suzanne Snider, was admitted to IMU Room 205-01 on 03/19/21 at 0205. Patient/family oriented to hospital policies and general routines including ID bracelet, bed and alarms, visiting hours, pain management, procedures, bathroom and other care routines, personal items, smoking policy, room service/diet, and visiting hours. Information on how to activate the Rapid Response Team has been discussed. Patient/Family are encouraged to report perceived risks to care and to ask questions if they do not understand what they are told or what they should do.
--- NOTE | 2021-03-19 02:59 | PM.IMHP ---
H&P: HPI History of Present Illness Date/Time: 03/19/21 02:59 Chief Complaint: Altered mental status Narrative: This is an 81-year-old female with past medical history significant for Anxiety and depression,Chronic midline low back pain without sciatica,Essential (primary) hypertension,Gastroesophageal reflux disease, transient ischemic attack and cerebral infarction,Hypothyroidism (acquired),Low vitamin B12 level,Mixed hyperlipidemia,Osteoarthritis,Restless legs syndrome,Urge incontinence of urine,Vitamin D deficiency. That was brought to the emergency room after daughter found her laying on the floor confused with no clothes on patient is unable to give any history at this time as she is very confused counter which she has had and does not know why she is here can't really give any a straight answers. According to daughter she has been confused for the last 3 days and patient has a habit of exchanging pain pills with a friend. Preliminary workup in emergency rooms was essentially nonrevealing she was hypertensive and thrashing around. Patient will be placed on observation. CT of the head with no acute abnormalities and cardiac markers were significant for elevated troponin and brain natriuretic peptide. Review of Systems Review of Systems: ROS unobtainable: Yes unobtainable due to medical condition (Altered mental status) [facility] Past Medical History Medical History (Updated 03/19/21 @ 03:10 by Radha Hoyos MD) Anxiety and depression Chronic midline low back pain without sciatica Depression with anxiety Essential (primary) hypertension Gastroesophageal reflux disease History of transient ischemic attack and cerebral infarction Hypothyroidism (acquired) Low vitamin B12 level Mixed hyperlipidemia Osteoarthritis Restless legs syndrome Urge incontinence of urine Vitamin D deficiency Surgical History Surgical History History of bilateral carotid endarterectomy left carotid endarterectomy June 2004 followed by right carotid endarterectomy a couple years later History of carpal tunnel surgery right - 1996 History of tubal ligation 1977 Hx of tonsillectomy 1957 Family History Family History Mother Patient's mother is Family history of pancreatic cancer Cerebrovascular accident Hypertension Family history of cardiovascular disease Father Acute myocardial infarction Patient's father is Hypertension Family history of cardiovascular disease Sibling Family history of transient ischemic attacks Social History Social History Social History: Ms. Snider lives at home alone in [place]. She denies alcohol use. Remote history of occasional cigarette smoking and quit in the 1980s. Denies other substance use. Code status was discussed and she wishes her code status to be Do Not Resuscitate. PCP: Dr Hernandez Years smoked: 20 Smoking status: Former smoker Tobacco type: cigarettes Second hand tobacco smoke exposure: No Smoking end date: 09/26/79 Alcohol intake: never Substance use: never Gender identity (if verbalized by the patient): Female Spiritual care concerns: No Meds Home Medications and Allergies Home Medications Medication Instructions Recorded Confirmed Type ropinirole 2 mg tablet 2 mg PO BID #180 tablet 10/07/20 03/19/21 Rx atorvastatin 10 mg tablet 10 mg PO DAILY #90 tablet 03/02/21 03/19/21 Rx bupropion HCl 300 mg 24 hr tablet, 300 mg PO QAM #90 tablet 03/02/21 03/19/21 Rx extended release clopidogrel 75 mg tablet 75 mg PO DAILY #90 tablet 03/02/21 03/19/21 Rx potassium chloride 10 mEq 10 meq PO DAILY #90 tablet 03/02/21 03/19/21 Rx tablet,extended release valsartan 320 mg tablet 320 mg PO DAILY #90 tablet 03/02/21 03/19/21 Rx furosemide 40 mg PO DAILY 03/19/21 0
[2021-03-19 04:55] LABS: Amphetamine Screen Urine Negative (Negative); Barbiturate Screen Urine Negative (Negative); Benzodiazepines Screen Urine Negative (Negative); Cannabinoid Screen Urine Negative (Negative); Cocaine Screen Urine Negative (Negative); Methadone Screen Urine Negative (Negative); Opiate Screen Urine Negative (Negative); Phencyclidine Screen Urine Negative (Negative)
[2021-03-19 06:11] LABS: Troponin I 0.094 ng/mL (0.000-0.034)
[2021-03-19 09:12] LABS: Hematocrit 49.5 % (37.0-47.0); Hemoglobin 15.8 g/dL (12.0-15.0); Mean Corpuscular HGB Conc 31.9 g/dl (32-36); Mean Corpuscular Hemoglobin 28.2 pg (26-34); Mean Corpuscular Volume 88.2 fl (80-100); Mean Platelet Volume 10.2 fl (7.4-10.4); Platelet Count Result 324 k/mm3 (150-375); Red Blood Count 5.61 M/mm3 (4.2-5.4); Red Cell Distribution Width 14.6 % (11.5-14.5)
[2021-03-19 09:18] LABS: Anion Gap 14 mmol/L (8-16); Blood Urea Nitrogen 9 mg/dL (7-17); Calcium 9.9 mg/dL (8.4-10.2); Carbon Dioxide 26 mmol/L (22-30); Chloride 97 mmol/L (98-107); Estimated CRCL calculation 79 ml/min; Estimated Glomerular Filt Rate > 60; Glucose 107 mg/dL (65-105); Potassium 3.3 mmol/L (3.4-5.0); Sodium 137 mmol/L (137-145)
[2021-03-19] MEDS: buPROPion HCL XL (24 HR) 150 MG TABCR 300 MG PO (10:11)
[2021-03-19] MEDS: LEVOTHYROXINE SODIUM 125 MCG TABLET PO (10:11)
[2021-03-19] MEDS: VALSARTAN 160 MG TABLET 320 MG PO (10:11)
[2021-03-19] MEDS: POTASSIUM CHLORIDE 10 MEQ TABLET.ER PO (10:11)
[2021-03-19] MEDS: rOPINIRole HCL 1 MG TABLET 2 MG PO ×2 (10:11→18:52)
[2021-03-19] MEDS: ATORVASTATIN 10 MG TABLET PO (10:12)
[2021-03-19] MEDS: CLOPIDOGREL BISULFATE 75 MG TABLET PO (10:12)
--- NOTE | 2021-03-19 13:04 | PM.IMPN ---
Progress Note: A&P Assessment and Plan (1) Altered mental status: Qualifiers: Altered mental status type: disorientation Qualified Code(s): R41.0 - Disorientation, unspecified Code(s): R41.82 - Altered mental status, unspecified Status: Acute Assessment and Plan: Patient alert but still confused. She was found down at home. Brain CT showing old CVAs. Cervical spine CT showing no acute findings. Urinalysis showed 3+ protein but no evidence of UTI. Blood pressure was markedly elevated on admission. Patient may not be taking her medications correctly. Mental status may be related to her taking too much or too little of her chronic medications. There is also a notation in the chart that patient has been exchanging pain medications with friends which could also be the etiology of her mental status changes. Urine drug screen was negative. Will proceed with MRI of the brain. Start PT and OT. Further recommendations as course dictates. (2) Acute congestive heart failure: Code(s): I50.9 - Heart failure, unspecified Status: Acute Assessment and Plan: Echocardiogram from November 2020 showing EF of 60-65% and grade 1 diastolic dysfunction. Chest x-ray this morning showing bilateral lower lobe airspace disease possibly edema. Her BNP was 1950. Troponin mildly elevated which could be related to the CHF exacerbation. White count was elevated on admission but has trended downward. No fevers. She is not on antibiotics. Pneumonia seems less likely. She has been started on IV Lasix. Renal function remaining stable. She remains on room air. (3) Elevated troponin: Code(s): R77.8 - Other specified abnormalities of plasma proteins Status: Acute Assessment and Plan: Troponin elevated 0.102 but has trended down from there. Chest x-ray today showing bilateral lower lobe airspace disease. EKG showed normal sinus rhythm with short RI interval and borderline ST T wave changes. These findings appears similar to an EKG from last year. Patient is on Plavix and Lipitor which will resume. Elevated troponins could be related to markedly elevated blood pressure and/or CHF. Continue to monitor. Continue telemetry. (4) Essential (primary) hypertension: Code(s): I10 - Essential (primary) hypertension Status: Chronic Assessment and Plan: Patient's blood pressure was reviewed on 03/19. Blood pressure was exceedingly high on admission 219/98. She was given hydralazine with good response. She may not be taking medications as prescribed. No evidence new CVA by brain CT. Will resume her Diovan. Continue to monitor. (5) Lymphedema of both lower extremities: Code(s): I89.0 - Lymphedema, not elsewhere classified Status: Acute Assessment and Plan: Chronic lymphedema to the BLE. Wrinkling noted. Joao lepe. (6) DVT prophylaxis: Code(s): Z29.9 - Encounter for prophylactic measures, unspecified Status: Acute Assessment and Plan: Lovenox Subjective Date/time seen: 03/19/21 13:04 Interval history: 81yo female with HTN and hypothyroidism here for fall and AMS. Patient alert but confused and unable to provide history. States patietn found down and naked. The patient also has been exchanging pain pills with friends. Patient denies CP or SOB. No n/v. RN states patietn spitting at staff Review of Systems Review of Systems: ROS unobtainable: Yes unobtainable due to mental status Exam Narrative: Exam Narrative: AF 97.9 148/67 98 18 96%RA Gen - NARD lying almost flat in bed Chest - bibasilar inspiratory crackles, nml RR CV - RRR S1/S2; Tele showing PVCs Abd - Soft, NT/ND, Positive BS - Bro secured draining clear yellow urine Ext - bilateral LE nonpitting lymphedema with wrinkling to the feet Neuro - Alert but confused. Oriented to herself only. trouble with left supination and possible weakness i
[2021-03-19] MEDS: ENOXAPARIN 40 MG/0.4 ML SYRINGE SUB-Q (13:14)
[2021-03-19] MEDS: ONDANSETRON INJ 4 MG/2 ML VIAL IV PUSH (16:19)
[2021-03-20] VITALS (12 sets, daily range): BP systolic 138–153; BP diastolic 40–82; PULSE 69–84; RESP 12–16; TEMP 36.2–37.1; O2SAT 92–97
[2021-03-20 05:26] LABS: Basophils Absolute Auto 0.1 K/mm3 (0.0-0.1); Basophils Percent Auto 0.5 % (0.2-1.2); Eosinophils Absolute Auto 0.1 K/mm3 (0-0.3); Eosinophils Percent Auto 0.6 % (0-4.4); Hematocrit 40.3 % (37.0-47.0); Immature Granulocyte Absolute 0.03 K/mm3 (0.00-0.031); Immature Granulocyte Percent A 0.3 % (0-0.5); Lymphocytes Absolute Auto 2.07 K/mm3 (0.9-3.2); Lymphocytes Percent Auto 19.7 % (18.3-44.2); Mean Corpuscular HGB Conc 32.3 g/dl (32-36); Mean Corpuscular Hemoglobin 27.9 pg (26-34); Mean Corpuscular Volume 86.5 fl (80-100); Mean Platelet Volume 9.8 fl (7.4-10.4); Monocytes Absolute Auto 1.2 K/mm3 (0.1-0.6); Monocytes Percent Auto 11.1 % (2.6-8.5); Neutrophils Absolute Auto 7.1 K/mm3 (1.3-6.7); Neutrophils Percent Auto 67.8 % (45.5-73.1); Platelet Count Result 309 k/mm3 (150-375); Red Blood Count 4.66 M/mm3 (4.2-5.4); Red Cell Distribution Width 14.7 % (11.5-14.5); White Blood Count 10.5 K/mm3 (4.5-10.0)
[2021-03-20 05:33] LABS: Albumin Level 3.6 g/dL (3.5-5.1); Anion Gap 9 mmol/L (8-16); Blood Urea Nitrogen 16 mg/dL (7-17); Calcium 9.1 mg/dL (8.4-10.2); Carbon Dioxide 32 mmol/L (22-30); Chloride 95 mmol/L (98-107); Estimated CRCL calculation 39 ml/min; Estimated Glomerular Filt Rate 60; Glucose 95 mg/dL (65-105); Magnesium 1.8 mg/dL (1.6-2.3); Phosphorus 3.3 mg/dL (2.5-4.5); Sodium 136 mmol/L (137-145)
[2021-03-20] MEDS: LEVOTHYROXINE SODIUM 125 MCG TABLET PO (06:45)
[2021-03-20] MEDS: VALSARTAN 160 MG TABLET 320 MG PO (09:40)
[2021-03-20] MEDS: rOPINIRole HCL 1 MG TABLET 2 MG PO ×2 (09:40→16:56)
[2021-03-20] MEDS: ENOXAPARIN 40 MG/0.4 ML SYRINGE SUB-Q (09:41)
[2021-03-20] MEDS: ATORVASTATIN 10 MG TABLET PO (09:41)
[2021-03-20] MEDS: CLOPIDOGREL BISULFATE 75 MG TABLET PO (09:41)
[2021-03-20] MEDS: POTASSIUM CHLORIDE 20 MEQ TABLET 40 MEQ PO (09:41)
[2021-03-20] MEDS: buPROPion HCL XL (24 HR) 150 MG TABCR 300 MG PO (09:41)
[2021-03-20] MEDS: POTASSIUM CHLORIDE 10 MEQ TABLET.ER PO (09:42)
[2021-03-20] MEDS: FUROSEMIDE INJ 40 MG/4 ML VIAL IV PUSH ×2 (09:42→20:14)
--- NOTE | 2021-03-20 11:19 | PCOTNOTE ---
OT evaluation attempted x2. Patient refusing therapy this date. Will attempt at later time.
--- NOTE | 2021-03-20 12:59 | PM.IMPN ---
Progress Note: A&P Assessment and Plan (1) Altered mental status: Qualifiers: Altered mental status type: disorientation Qualified Code(s): R41.0 - Disorientation, unspecified Code(s): R41.82 - Altered mental status, unspecified Status: Acute Assessment and Plan: Patient alert but still confused. She was found down at home. Brain CT showing old CVAs. Cervical spine CT showing no acute findings. Urinalysis showed 3+ protein but no evidence of UTI. Blood pressure was markedly elevated on admission. Patient may not be taking her medications correctly. Mental status may be related to her taking too much or too little of her chronic medications. There is also a notation in the chart that patient has been exchanging pain medications with friends which could also be the etiology of her mental status changes. Urine drug screen was negative. MRI of the brain showing old CVAs but no acute findings. Suspect patient with vascular dementia. Continue PT and OT. Placement being arranged. Message left for family. (2) Acute congestive heart failure: Code(s): I50.9 - Heart failure, unspecified Status: Acute Assessment and Plan: Echocardiogram from November 2020 showing EF of 60-65% and grade 1 diastolic dysfunction. Chest x-ray showing bilateral lower lobe airspace disease possibly edema. Her BNP was 1952. Troponin mildly elevated which could be related to the CHF exacerbation and/or the markedly elevated BP. White count was elevated on admission but has trended downward. No fevers. She is not on antibiotics. Pneumonia seems less likely. Negative fluid balance with the IV Lasix. Renal function remaining stable. She remains on room air. Change back to oral Lasix tomorrow. (3) Elevated troponin: Code(s): R77.8 - Other specified abnormalities of plasma proteins Status: Acute Assessment and Plan: Troponin elevated to 0.102 but has trended down from there. Chest x-ray showing bilateral lower lobe airspace disease. EKG showed normal sinus rhythm with short [place] interval and borderline ST T wave changes. These findings appears similar to an EKG from last year. Patient is on Plavix and Lipitor which was continued. Elevated troponins felt related to markedly elevated blood pressure and CHF. Continue to monitor. (4) Essential (primary) hypertension: Code(s): I10 - Essential (primary) hypertension Status: Chronic Assessment and Plan: Patient's blood pressure was reviewed on 03/20. Blood pressure was exceedingly high on admission 219/98. She was given hydralazine with good response. She may not be taking medications as prescribed. No evidence new CVA by brain MR. Smith resumed and BP better controlled. Continue to monitor. (5) Lymphedema of both lower extremities: Code(s): I89.0 - Lymphedema, not elsewhere classified Status: Acute Assessment and Plan: Chronic lymphedema to the BLE. Continue Joao hose. (6) DVT prophylaxis: Code(s): Z29.9 - Encounter for prophylactic measures, unspecified Status: Acute Assessment and Plan: Lovenox Subjective Date/time seen: 03/20/21 12:59 Interval history: 81yo female with HTN and hypothyroidism here for fall and AMS. Patient alert but confused and unable to provide history. She is more cooperative today and taking her pills per RN. She denies n/v. She denies CP or SOB. No abd pain. Review of Systems Review of Systems: ROS unobtainable: Yes unobtainable due to mental status Exam Narrative: Exam Narrative: AF 98.7 143/55 73 12 95%RA Gen - NARD lying semi-recumbent in bed Chest - bibasilar inspiratory crackles, nml RR CV - RRR S1/S2; Tele showing NSR with occasional bigeminy and PVCs Abd - Soft, NT/ND, Positive BS - Bro secured draining clear yellow urine Ext - bilateral LE nonpitting lymphedema Neuro - Alert but confused. Oriented to
[2021-03-21 04:00] VITALS: BP 148/55; PULSE 75; RESP 18; TEMP 36.5; O2SAT 95
[2021-03-21] MEDS: LEVOTHYROXINE SODIUM 125 MCG TABLET PO (06:21)
[2021-03-21 06:53] LABS: Anion Gap 5 mmol/L (8-16); Blood Urea Nitrogen 21 mg/dL (7-17); Carbon Dioxide 33 mmol/L (22-30); Chloride 97 mmol/L (98-107); Estimated CRCL calculation 49 ml/min; Estimated Glomerular Filt Rate > 60; Glucose 95 mg/dL (65-105); Potassium 3.5 mmol/L (3.4-5.0); Sodium 135 mmol/L (137-145)
[2021-03-21 08:00] VITALS: BP 154/65; PULSE 70; RESP 14; TEMP 37.1; O2SAT 93
[2021-03-21] MEDS: ATORVASTATIN 10 MG TABLET PO (08:15)
[2021-03-21] MEDS: rOPINIRole HCL 1 MG TABLET 2 MG PO ×2 (08:15→17:25)
[2021-03-21] MEDS: buPROPion HCL XL (24 HR) 150 MG TABCR 300 MG PO (08:16)
[2021-03-21] MEDS: POTASSIUM CHLORIDE 10 MEQ TABLET.ER PO (08:16)
[2021-03-21] MEDS: CLOPIDOGREL BISULFATE 75 MG TABLET PO (08:16)
[2021-03-21] MEDS: ENOXAPARIN 40 MG/0.4 ML SYRINGE SUB-Q (08:16)
[2021-03-21] MEDS: VALSARTAN 160 MG TABLET 320 MG PO (08:17)
[2021-03-21] MEDS: FUROSEMIDE INJ 40 MG/4 ML VIAL IV PUSH (08:35)
--- NOTE | 2021-03-21 09:25 | PM.IMPN ---
Progress Note: A&P Assessment and Plan (1) Altered mental status: Qualifiers: Altered mental status type: disorientation Qualified Code(s): R41.0 - Disorientation, unspecified Code(s): R41.82 - Altered mental status, unspecified Status: Acute Assessment and Plan: Patient alert but still confused. She was found down at home. Brain CT showing old CVAs. Cervical spine CT showing no acute findings. Urinalysis showed 3+ protein but no evidence of UTI. Blood pressure was markedly elevated on admission. Patient may not be taking her medications correctly. Mental status may be related to her taking too much or too little of her chronic medications. There is also a notation in the chart that patient has been exchanging pain medications with friends which could also be the etiology of her mental status changes. Urine drug screen was negative. MRI brain with multiple old infarcts. Continue PT and OT. Await placement. (2) Acute congestive heart failure: Code(s): I50.9 - Heart failure, unspecified Status: Acute Assessment and Plan: Echocardiogram from November 2020 showing EF of 60-65% and grade 1 diastolic dysfunction. Chest x-ray this morning showing bilateral lower lobe airspace disease possibly edema. Her BNP was 1952. Troponin mildly elevated which could be related to the CHF exacerbation. White count was elevated on admission but has trended downward. No fevers. She is not on antibiotics. Pneumonia seems less likely. She was started on IV Lasix. 03/21: now has a metabolic alkalosis with prerenal azotemia, so will D/c IV furosemide. (3) Elevated troponin: Code(s): R77.8 - Other specified abnormalities of plasma proteins Status: Acute Assessment and Plan: Troponin elevated 0.102 but has trended down from there. Chest x-ray today showing bilateral lower lobe airspace disease. EKG showed normal sinus rhythm with short [place] interval and borderline ST T wave changes. These findings appears similar to an EKG from last year. Patient is on Plavix and Lipitor which will resume. Elevated troponins could be related to markedly elevated blood pressure and/or CHF. (4) Essential (primary) hypertension: Code(s): I10 - Essential (primary) hypertension Status: Chronic Assessment and Plan: Patient's blood pressure was reviewed on 03/21. Blood pressure was exceedingly high on admission 219/98. She was given hydralazine with good response. She may not be taking medications as prescribed. No evidence new CVA by brain CT. Continue ARB. (5) Lymphedema of both lower extremities: Code(s): I89.0 - Lymphedema, not elsewhere classified Status: Acute Assessment and Plan: Chronic lymphedema to the BLE. Wrinkling noted. Joao lepe. (6) DVT prophylaxis: Code(s): Z29.9 - Encounter for prophylactic measures, unspecified Status: Acute Assessment and Plan: Lovenox Subjective Date/time seen: 03/21/21 09:25 Interval history: 81yo female with HTN and hypothyroidism here for fall and AMS. 03/21: Hungry. Denied pain. Incontinent of urine. Denied sob, chest pain, swelling, bleeding, gi or gu changes, though accuracy of her account is dubious. Review of Systems Review of Systems: All systems reviewed & are unremarkable except as noted in HPI and below Exam Narrative: Exam Narrative: Gen - NARD lying semi-recumbent in bed Chest - CTA, NL effort CV - RRR S1/S2; no murmur Abd - Soft, NT/ND, Positive BS - no Bro Ext - trace bilateral LE nonpitting lymphedema Neuro - CN symmetric to inspection, tone and strength symmetric in porx and distal UEs and LEs Psych - Alert but confused. Oriented to person, place; thought year was 2000. Follows commands. Pleasant and cooperative. Skin - Warm and dry Objective Data Vital Signs Vital Signs: Vital Signs - 24 hr 03/20/21 10:00 03/20/21 12:00 03/20/21 14:
--- NOTE | 2021-03-21 15:03 | PCOTNOTE ---
Attempted OT evaluation this date. PT. refused at this time. Will attempt again tomorrow.
[2021-03-21 16:00] VITALS: BP 146/56; PULSE 67; RESP 12; TEMP 36.4; O2SAT 94
--- NOTE | 2021-03-21 17:50 | PC.NURSE ---
pt medical status- bed obtained on 2nd medical- report called to Maribell RN- pt moved via bed accompanied by staff- belongings with pt
--- NOTE | 2021-03-21 18:01 | PC.NURSE ---
IMU transfer received from room 205.
[2021-03-21 20:00] VITALS: BP 162/51; PULSE 79; RESP 18; TEMP 36.3; O2SAT 95
[2021-03-22] VITALS (9 sets, daily range): BP systolic 153–160; BP diastolic 46–81; PULSE 65–84; RESP 16–20; TEMP 35.9–37; O2SAT 92–98
[2021-03-22] MEDS: LEVOTHYROXINE SODIUM 125 MCG TABLET PO (05:50)
[2021-03-22 05:56] LABS: Anion Gap 9 mmol/L (8-16); Blood Urea Nitrogen 20 mg/dL (7-17); Calcium 9.3 mg/dL (8.4-10.2); Carbon Dioxide 33 mmol/L (22-30); Chloride 95 mmol/L (98-107); Estimated CRCL calculation 49 ml/min; Estimated Glomerular Filt Rate > 60; Glucose 108 mg/dL (65-105); Potassium 3.4 mmol/L (3.4-5.0); Sodium 137 mmol/L (137-145)
[2021-03-22] MEDS: buPROPion HCL XL (24 HR) 150 MG TABCR 300 MG PO (08:14)
[2021-03-22] MEDS: CLOPIDOGREL BISULFATE 75 MG TABLET PO (08:16)
[2021-03-22] MEDS: VALSARTAN 160 MG TABLET 320 MG PO (08:16)
[2021-03-22] MEDS: ATORVASTATIN 10 MG TABLET PO (08:16)
[2021-03-22] MEDS: ENOXAPARIN 40 MG/0.4 ML SYRINGE SUB-Q (08:16)
[2021-03-22] MEDS: rOPINIRole HCL 1 MG TABLET 2 MG PO ×2 (08:16→16:50)
[2021-03-22] MEDS: POTASSIUM CHLORIDE 10 MEQ TABLET.ER PO (08:16)
--- NOTE | 2021-03-22 09:03 | PM.IMPN ---
Progress Note: A&P Assessment and Plan (1) Altered mental status: Qualifiers: Altered mental status type: disorientation Qualified Code(s): R41.0 - Disorientation, unspecified Code(s): R41.82 - Altered mental status, unspecified Status: Acute Assessment and Plan: Patient alert but still confused. She was found down at home. Brain CT showing old CVAs. Cervical spine CT showing no acute findings. Urinalysis showed 3+ protein but no evidence of UTI. Blood pressure was markedly elevated on admission. Patient may not be taking her medications correctly. Mental status may be related to her taking too much or too little of her chronic medications. There is also a notation in the chart that patient has been exchanging pain medications with friends which could also be the etiology of her mental status changes. Urine drug screen was negative. MRI brain with multiple old infarcts. Continue PT and OT. Await placement. (2) Acute congestive heart failure: Code(s): I50.9 - Heart failure, unspecified Status: Acute Assessment and Plan: Echocardiogram from November 2020 showing EF of 60-65% and grade 1 diastolic dysfunction. Chest x-ray this morning showing bilateral lower lobe airspace disease possibly edema. Her BNP was 1952. Troponin mildly elevated which could be related to the CHF exacerbation. White count was elevated on admission but has trended downward. No fevers. She is not on antibiotics. Pneumonia seems less likely. She was started on IV Lasix. 03/21: had a metabolic alkalosis with prerenal azotemia, so will D/c IV furosemide. 03/22: BMP noted. Continue to hold furosemide. (3) Elevated troponin: Code(s): R77.8 - Other specified abnormalities of plasma proteins Status: Acute Assessment and Plan: Troponin elevated 0.102 but has trended down from there. Chest x-ray today showing bilateral lower lobe airspace disease. EKG showed normal sinus rhythm with short [place] interval and borderline ST T wave changes. These findings appears similar to an EKG from last year. Patient is on Plavix and Lipitor which will resume. Elevated troponins could be related to markedly elevated blood pressure and/or CHF. (4) Essential (primary) hypertension: Code(s): I10 - Essential (primary) hypertension Status: Chronic Assessment and Plan: Patient's blood pressure was reviewed on 03/22. Blood pressure was exceedingly high on admission 219/98. She was given hydralazine with good response. She may not be taking medications as prescribed. No evidence new CVA by brain CT. Continue ARB. (5) Lymphedema of both lower extremities: Code(s): I89.0 - Lymphedema, not elsewhere classified Status: Acute Assessment and Plan: Chronic lymphedema to the BLE. Wrinkling noted. Joao lepe. (6) DVT prophylaxis: Code(s): Z29.9 - Encounter for prophylactic measures, unspecified Status: Acute Assessment and Plan: Lovenox Subjective Date/time seen: 03/22/21 09:03 Interval history: 81yo female with HTN and hypothyroidism here for fall and AMS. 03/22: Good appetite. Denied pain. Incontinent of urine. Denied sob, chest pain, swelling, bleeding, gi or gu changes, though accuracy of her account is dubious. Review of Systems Review of Systems: All systems reviewed & are unremarkable except as noted in HPI and below Exam Narrative: Exam Narrative: Gen - NARD lying semi-recumbent in bed Chest - CTA, NL effort CV - RRR S1/S2; no murmur Abd - Soft, NT/ND, Positive BS - no Bro Ext - trace bilateral LE nonpitting lymphedema Neuro - CN symmetric to inspection, tone and strength symmetric in porx and distal UEs and LEs Psych - Alert but confused. Oriented to person, place; thought year was 2000. Follows commands. Pleasant and cooperative. Skin - Warm and dry Objective Data Vital Signs Vital Signs: Vital Signs - 24 h
[2021-03-22] MEDS: carvediloL 3.125 MG TABLET PO ×2 (10:44→21:09)
[2021-03-23] VITALS (8 sets, daily range): BP systolic 139–149; BP diastolic 42–59; PULSE 60–80; RESP 16–20; TEMP 36.1–36.6; O2SAT 94–98
[2021-03-23] MEDS: LEVOTHYROXINE SODIUM 125 MCG TABLET PO (06:01)
[2021-03-23 06:03] LABS: Anion Gap 6 mmol/L (8-16); Blood Urea Nitrogen 18 mg/dL (7-17); Calcium 9.5 mg/dL (8.4-10.2); Carbon Dioxide 33 mmol/L (22-30); Chloride 94 mmol/L (98-107); Estimated CRCL calculation 57 ml/min; Estimated Glomerular Filt Rate > 60; Glucose 98 mg/dL (65-105); Potassium 3.7 mmol/L (3.4-5.0); Sodium 133 mmol/L (137-145)
[2021-03-23] MEDS: ATORVASTATIN 10 MG TABLET PO (09:24)
[2021-03-23] MEDS: buPROPion HCL XL (24 HR) 150 MG TABCR 300 MG PO (09:24)
[2021-03-23] MEDS: rOPINIRole HCL 1 MG TABLET 2 MG PO ×2 (09:25→17:50)
[2021-03-23] MEDS: FUROSEMIDE 40 MG TABLET PO (09:25)
[2021-03-23] MEDS: carvediloL 3.125 MG TABLET PO ×2 (09:25→20:11)
[2021-03-23] MEDS: POTASSIUM CHLORIDE 10 MEQ TABLET.ER PO (09:25)
[2021-03-23] MEDS: ENOXAPARIN 40 MG/0.4 ML SYRINGE SUB-Q (09:25)
[2021-03-23] MEDS: CLOPIDOGREL BISULFATE 75 MG TABLET PO (09:25)
[2021-03-23] MEDS: VALSARTAN 160 MG TABLET 320 MG PO (09:26)
--- NOTE | 2021-03-23 11:00 | PC.NURSE ---
Patient incontinent of urine - large amount of bloody urine noted in depends. Per CNAs, patient had a small amount of bloody urine in depends initially. While being changed, patient began urinating again and the CNAs witnessed her urinating a large amount of bloody urine again. Called Dr. Cope and notified him of incident and he states he will come out and assess patient.
--- NOTE | 2021-03-23 11:44 | PM.IMPN ---
Progress Note: A&P Assessment and Plan (1) Hematuria: Code(s): R31.9 - Hematuria, unspecified Status: Acute Assessment and Plan: New onset of blood in the diaper felt from urinary source. Scant vaginal blood but could be urine refluxing into the vagina. She had this in May [address] scan showing only hematoma in the bladder. The plan was for her to follow up with urology for cysto. Will check bladder/pelvic US. Check UA to exclude UTI. Urology consult. Hold Lovenox and Plavix (2) Altered mental status: Qualifiers: Altered mental status type: disorientation Qualified Code(s): R41.0 - Disorientation, unspecified Code(s): R41.82 - Altered mental status, unspecified Status: Acute Assessment and Plan: Patient alert but still confused. She was found down at home. Brain CT showing old CVAs. Cervical spine CT showing no acute findings. Urinalysis showed 3+ protein with hematuria but did not prompt a Cx. Blood pressure was markedly elevated on admission. Patient may not be taking her medications correctly. Mental status may be related to her taking too much or too little of her chronic medications. There is also a notation in the chart that patient has been exchanging pain medications with friends which could also be the etiology of her mental status changes. Urine drug screen was negative. Brain MR with multiple old infarcts. Continue PT and OT. (3) Acute congestive heart failure: Code(s): I50.9 - Heart failure, unspecified Status: Acute Assessment and Plan: Echocardiogram from November 2020 showing EF of 60-65% and grade 1 diastolic dysfunction. Chest x-ray showing bilateral lower lobe airspace disease possibly edema. Her BNP was 1952. Troponin mildly elevated felt related to the CHF exacerbation. Pneumonia seems less likely. White count was elevated on admission but has trended downward on no abx. No fevers. She was started on IV Lasix but developed metabolic alkalosis with prerenal azotemia so IV furosemide stopped. BUN better and serum bicarb stable so will resume home oral Lasix and follow. (4) Elevated troponin: Code(s): R77.8 - Other specified abnormalities of plasma proteins Status: Acute Assessment and Plan: Troponin elevated 0.102 but has trended down from there. Chest x-ray today showing bilateral lower lobe airspace disease. EKG showed normal sinus rhythm with short [place] interval and borderline ST T wave changes. These findings appears similar to an EKG from last year. Patient is on Plavix and Lipitor which will resume. Elevated troponins felt related to markedly elevated blood pressure and/or CHF. (5) Essential (primary) hypertension: Code(s): I10 - Essential (primary) hypertension Status: Chronic Assessment and Plan: Patient's blood pressure was reviewed on 03/23. Blood pressure was exceedingly high on admission 219/98. She was given hydralazine with good response. She may not be taking medications as prescribed. No evidence of new CVA by brain MR. BP better controlled overall. Continue ARB and Coreg. (6) Lymphedema of both lower extremities: Code(s): I89.0 - Lymphedema, not elsewhere classified Status: Acute Assessment and Plan: Chronic lymphedema to the BLE. Continue Joao hose. Resume home Lasix. (7) DVT prophylaxis: Code(s): Z29.9 - Encounter for prophylactic measures, unspecified Status: Acute Assessment and Plan: Lovenox - will hold. Subjective Date/time seen: 03/23/21 11:44 Interval history: 81yo female with HTN and hypothyroidism here for fall and AMS. Resuming care. Chart reviewed. Patient feels dizzy this morning with lightheadedness. No shortness of breath or chest pain. She does feel hungry. She complains of back pain. Patient is alert but confused so history is suspect. Call later back to the room after t
--- NOTE | 2021-03-23 15:40 | WPDURCON ---
Assessment and Plan Assessment and plan (1) Hematuria: Code(s): R31.9 - Hematuria, unspecified Status: Acute Assessment and Plan: Will repeat a CT scan and suggest cysto as an outpatient, unless the CT would suggest a need for an urgent inpatient cysto in the OR. Will watch from a distance to evaluate results. Otherwise, patient has been non compliant with our previous recommendations for further evaluation as an outpatient. Will await urine culture results, since she is asymptomatic of UTI otherwise, no need to treat with antibiotics at this time. Urology Consult Note HPI Date Seen: 03/23/21 Requesting Physician: Radha Hoyos MD Primary Care Provider: Kodak Hernandez DO Consult Narrative Narrative: Suzanne Snider is a 81 year old female who presented to the ER on 03/19/2021 d/t a fall at home where her family found her after several hours lying on the floor. She was also exhibiting signs of altered mental status x 3 days prior to the fall according to her family. She is known to our practice by Dr. West who most recently saw her on 12/24/2019 in the office to evaluate overactive bladder symptoms and was treated with Trospium BID, and recommended to follow up in 2-3 months for a cystoscope. However, she was not seen again in the office after that appointment. She was then hospitalized in 05/2020 and hematuria was discovered, a hematoma in her bladder was noted on CT abdomen/pelvis with and without contrast. She was then recommended to follow up for an outpatient cystoscope to further evaluate but didn't. She was noted to have blood in her diaper today and is incontinent of urine as well. She had a UA done today which shows 6-10 RBC's/hpf, with reflex to culture. She has a WBC of 10.5 and a creatinine of 0.60 as well as a negative pelvic US done on 03/19/2021. Patient denies dysuria, frequency, urgency or difficulty urinating. She is willing to answer medical history questions but doesn't open her eyes when you talk to her. Review of Systems Cardiovascular: Cardiovascular: Denies chest pain Respiratory: Respiratory: Reports no additional respiratory complaints Gastrointestinal: Gastrointestinal: Denies abdominal pain, Denies nausea and Denies vomiting Genitourinary: Genitourinary: Reports hematuria, Denies nocturia, Denies dysuria and Denies flank pain PMF Past Medical History Medical History Anxiety and depression Chronic midline low back pain without sciatica Depression with anxiety Essential (primary) hypertension Gastroesophageal reflux disease History of transient ischemic attack and cerebral infarction Hypothyroidism (acquired) Low vitamin B12 level Mixed hyperlipidemia Osteoarthritis Restless legs syndrome Urge incontinence of urine Vitamin D deficiency Surgical History Surgical History History of bilateral carotid endarterectomy left carotid endarterectomy June 2004 followed by right carotid endarterectomy a couple years later History of carpal tunnel surgery right - 1996 History of tubal ligation 1977 Hx of tonsillectomy 1957 Family History Family History Mother Patient's mother is Family history of pancreatic cancer Cerebrovascular accident Hypertension Family history of cardiovascular disease Father Acute myocardial infarction Patient's father is Hypertension Family history of cardiovascular disease Sibling Family history of transient ischemic attacks Social History Social History Social History: Ms. Snider lives at home alone in [place]. She denies alcohol use. Remote history of occasional cigarette smoking and quit in the . Denies other substance use. Code status was discussed and she wis
[2021-03-23 16:54] LABS: Add Urine Microscopic? YES; Appearance Urine Cloudy (Clear); Bacteria Urine 3+ /hpf; Bilirubin Urine Negative (Negative); Blood Urine 3+ (Negative); Color Urine Red (Yellow); Glucose Urine UA Negative (Negative); Ketones Urine Negative (Negative); Leukocyte Esterase Ur 2+ LEU/UL (Negative); Mucus Urine Moderate /lpf; Nitrate Urine Negative (Negative); Protein Urine 2+ mg/dL (Negative); RBC Urine >75 /hpf (0-2); Specific Grav Ur 1.017 (1.001-1.035); Squamous Epithelial Cell Urine Many /hpf (Few); WBC Clumps Urine Present /HPF; WBC Urine >75 /hpf
[2021-03-24] VITALS (7 sets, daily range): BP systolic 112–141; BP diastolic 46–81; PULSE 54–75; RESP 16–18; TEMP 36.4–36.9; O2SAT 94–97
[2021-03-24] MEDS: LEVOTHYROXINE SODIUM 125 MCG TABLET PO (05:47)
[2021-03-24 05:49] LABS: Hemoglobin 12.6 g/dL (12.0-15.0); Mean Corpuscular HGB Conc 32.3 g/dl (32-36); Mean Corpuscular Hemoglobin 28.4 pg (26-34); Mean Corpuscular Volume 87.8 fl (80-100); Mean Platelet Volume 9.9 fl (7.4-10.4); Platelet Count Result 338 k/mm3 (150-375); Red Blood Count 4.44 M/mm3 (4.2-5.4); Red Cell Distribution Width 14.6 % (11.5-14.5); White Blood Count 9.8 K/mm3 (4.5-10.0)
[2021-03-24 06:01] LABS: Albumin Level 3.6 g/dL (3.5-5.1); Anion Gap 6 mmol/L (8-16); Blood Urea Nitrogen 20 mg/dL (7-17); Calcium 9.2 mg/dL (8.4-10.2); Carbon Dioxide 33 mmol/L (22-30); Chloride 94 mmol/L (98-107); Estimated CRCL calculation 49 ml/min; Estimated Glomerular Filt Rate > 60; Glucose 109 mg/dL (65-105); Phosphorus 2.8 mg/dL (2.5-4.5); Potassium 3.4 mmol/L (3.4-5.0); Sodium 133 mmol/L (137-145)
[2021-03-24] MEDS: POTASSIUM CHLORIDE 20 MEQ TABLET PO (09:07)
[2021-03-24] MEDS: buPROPion HCL XL (24 HR) 150 MG TABCR 300 MG PO (10:51)
[2021-03-24] MEDS: ATORVASTATIN 10 MG TABLET PO (10:51)
[2021-03-24] MEDS: carvediloL 3.125 MG TABLET PO ×2 (10:51→20:53)
[2021-03-24] MEDS: FUROSEMIDE 40 MG TABLET PO (10:52)
[2021-03-24] MEDS: VALSARTAN 160 MG TABLET 320 MG PO (10:52)
[2021-03-24] MEDS: CIPROFLOXACIN 250 MG TABLET PO ×2 (10:52→20:53)
[2021-03-24] MEDS: POTASSIUM CHLORIDE 10 MEQ TABLET.ER PO (10:52)
[2021-03-24] MEDS: rOPINIRole HCL 1 MG TABLET 2 MG PO ×2 (10:52→17:57)
--- NOTE | 2021-03-24 11:34 | PCNFU ---
Nutrition Follow-Up Complete: Predicted suboptimal oral intake related to altered mental status as evidenced by minimal intake thus far, EMR. Goal: Patient to consume 50% of meals/supplements or greater. Progressing towards goal. We will continue current goal. Pt current nutrition is NPO. Nutrition recommendation: heart healthy with ensure compact BID. Last recorded weight is 73.7 kg down from 87 kg on admission. Bowel Motility:No BM reported. Labs Reviewed:Na 133,BUN 20,Glu 109 Meds Noted:Wellbutrin,Diovan,Requip,Coreg,Plavix,Cipro,Synthroid Additional Notes: Nutrition follow up. Patient has been consuming 60-80% of heart healthy diet. Patient NPO for an episode of blood in her diaper. Urology consulted. Agree with current diet orders at this time. Monitoring: Follow up in 5 days.
--- NOTE | 2021-03-24 14:16 | PM.IMPN ---
Progress Note: A&P Assessment and Plan (1) Hematuria: Code(s): R31.9 - Hematuria, unspecified Status: Acute Assessment and Plan: New onset of blood in the diaper felt from urinary source. Scant vaginal blood but could be urine refluxing into the vagina. She had this in May [address] scan showing only hematoma in the bladder. Pelvic US not showing any concerning uterine findings. UA noted. UCx pending. Cipro added. CT A/P ordered and is pending. Urology consult. The patient to follow up with urology for cysto. Continue to hold Lovenox and Plavix. (2) Altered mental status: Qualifiers: Altered mental status type: disorientation Qualified Code(s): R41.0 - Disorientation, unspecified Code(s): R41.82 - Altered mental status, unspecified Status: Acute Assessment and Plan: Patient alert but still confused. She was found down at home. Brain CT showing old CVAs. Cervical spine CT showing no acute findings. Urinalysis on admission showed 3+ protein with hematuria but did not prompt a Cx. Blood pressure was markedly elevated on admission. Patient may not be taking her medications correctly. Mental status may be related to her taking too much or too little of her chronic medications. There is also a notation in the chart that patient has been exchanging pain medications with friends which could also be the etiology of her mental status changes. Urine drug screen was negative. Brain MR with multiple old infarcts but no acute findings. Continue PT and OT. (3) Acute congestive heart failure: Code(s): I50.9 - Heart failure, unspecified Status: Acute Assessment and Plan: Echo from November 2020 showing EF of 60-65% and grade 1 diastolic dysfunction. Chest x-ray showing bilateral lower lobe airspace disease possibly edema. Her BNP was 1950. Troponin mildly elevated felt related to the CHF exacerbation. Pneumonia seems less likely. White count was elevated on admission but has trended downward on no abx. No fevers. She was started on IV Lasix but developed metabolic alkalosis with prerenal azotemia so IV furosemide stopped. BUN and serum bicarb stable so we resume home oral Lasix. Continue follow. (4) Elevated troponin: Code(s): R77.8 - Other specified abnormalities of plasma proteins Status: Acute Assessment and Plan: Troponin elevated 0.102 but has trended down from there. Chest x-ray today showing bilateral lower lobe airspace disease. EKG showed normal sinus rhythm with short AL interval and borderline ST T wave changes. These findings appears similar to an EKG from last year. Patient is on Plavix and Lipitor which will resume. Elevated troponins felt related to markedly elevated blood pressure and/or CHF. (5) Essential (primary) hypertension: Code(s): I10 - Essential (primary) hypertension Status: Chronic Assessment and Plan: Patient's blood pressure was reviewed on 03/24. Blood pressure was exceedingly high on admission 219/98. She was given hydralazine with good response. She may not be taking medications as prescribed. No evidence of new CVA by brain MR. BP better controlled overall. Continue ARB and Coreg. (6) Lymphedema of both lower extremities: Code(s): I89.0 - Lymphedema, not elsewhere classified Status: Acute Assessment and Plan: Chronic lymphedema to the BLE. Continue Joao hose. Continue home oral Lasix. (7) DVT prophylaxis: Code(s): Z29.9 - Encounter for prophylactic measures, unspecified Status: Acute Assessment and Plan: Lovenox - will hold. SCDs added Subjective Date/time seen: 03/24/21 14:16 Interval history: 81yo female with HTN and hypothyroidism here for fall and AMS. Eating okay. No CP or SOB. Back feels better today. Some nausea after eating. No BM. RN states no further hematuria. Exam Narrative: Exam Narrative: A
--- NOTE | 2021-03-25 | ECHO_ITS ---
Patient Info Name: Suzanne Snider Age: 81 years : 1940 Gender: Female Ht: 66 in Wt: 162 lbs BSA: 1.86 m2 HR: 54 bpm BP: 130 / 66 mmHg Technical Quality: Good Exam Date: 03/25/2021 10:18 AM Exam Location: [facility] Patient Status: Inpatient Admit Date: 03/23/2021 Staff Ordering Physician: Misael Cope MD Drafting Layout Man: Danni Attending Provider: Radha Hoyos MD Exam Type: CA echo doppler color flow Study Info Indications I50.9 - Heart failure, unspecified Complete two-dimensional, color flow and Doppler transthoracic echocardiogram is performed. Summary 1. Complete two-dimensional, color flow and Doppler transthoracic echocardiogram is performed. 2. Left ventricular chamber dimension is normal. 3. Left ventricular systolic function is normal, estimated at 65-70%. 4. There is moderately increased left ventricular wall thickness. 5. The left ventricular diastolic function is grade I diastolic dysfunction. 6. E/e' 12 is mildly elevated. 7. Left atrial chamber dimension is mildly enlarged. 8. There is mild aortic valve sclerosis. 9. There is trace mitral valve regurgitation. 10. There is mild tricuspid valve regurgitation. 11. No pulmonary hypertension, estimated pulmonary arterial systolic pressure is 35 mmHg. 12. There is trace pulmonic regurgitation. 13. There is small to moderate circumferential pericardial effusion. Left Ventricle E/e' 12 is mildly elevated. Left ventricular chamber dimension is normal. Left ventricular systolic function is normal, estimated at 65-70%. There is moderately increased left ventricular wall thickness. The left ventricular diastolic function is grade I diastolic dysfunction. Right Ventricle Right ventricular chamber dimension is normal. Right ventricular systolic function is normal. Left Atria Left atrial chamber dimension is mildly enlarged. Right Atria Right atrial chamber dimension is normal. Aortic Valve The aortic valve is trileaflet. There is mild aortic valve sclerosis. There is no aortic valve stenosis. There is no aortic valve regurgitation. Pulmonic Valve There is trace pulmonic regurgitation. Mitral Valve There is no mitral valve stenosis. There is trace mitral valve regurgitation. Tricuspid Valve There is mild tricuspid valve regurgitation. No pulmonary hypertension, estimated pulmonary arterial systolic pressure is 35 mmHg. Pericardium/Pleural There is small to moderate circumferential pericardial effusion. Inferior Vena Cava Normal inferior vena cava with >50% collapse upon inspiration consistent with normal right atrial pressure, 5 mmHg. Aorta The aortic root size at the sinus of Valsalva is normal. Left Ventricular Outflow Tract Name Value Normal LVOT 2D LVOT Diameter 2.0 cm LVOT Doppler LVOT Peak Gradient 4 mmHg LVOT Mean Gradient 2 mmHg LVOT VTI 27 cm LVOT VTI/AV VTI Ratio 1.1 LVOT Stroke Volume 80 ml LVOT CO
[2021-03-25 02:00] VITALS: BP 150/54; PULSE 58; RESP 18; TEMP 36.9; O2SAT 96
[2021-03-25] MEDS: LEVOTHYROXINE SODIUM 125 MCG TABLET PO (05:32)
[2021-03-25 06:00] VITALS: BP 139/66; PULSE 56; RESP 18; TEMP 36.3; O2SAT 96
[2021-03-25 08:00] VITALS: BP 134/52; PULSE 66; RESP 18; TEMP 36.4; O2SAT 95
[2021-03-25] MEDS: buPROPion HCL XL (24 HR) 150 MG TABCR 300 MG PO (08:56)
[2021-03-25] MEDS: ATORVASTATIN 10 MG TABLET PO (08:56)
[2021-03-25 08:57] VITALS: PULSE 66
[2021-03-25] MEDS: FUROSEMIDE 40 MG TABLET PO (08:57)
[2021-03-25] MEDS: carvediloL 3.125 MG TABLET PO (08:57)
[2021-03-25] MEDS: CIPROFLOXACIN 250 MG TABLET PO (08:57)
[2021-03-25] MEDS: POTASSIUM CHLORIDE 10 MEQ TABLET.ER PO (08:57)
[2021-03-25] MEDS: VALSARTAN 160 MG TABLET 320 MG PO (08:57)
[2021-03-25] MEDS: rOPINIRole HCL 1 MG TABLET 2 MG PO (08:57)
[2021-03-25 12:00] VITALS: BP 142/66; PULSE 60; RESP 18; TEMP 36.1; O2SAT 97
--- NOTE | 2021-03-25 12:37 | PM.DS ---
DS: Admitting Diagnosis Admitting Diagnosis Admitting Diagnosis: Fall and with altered mental status DS: Discharge Diagnosis Discharge Diagnosis (1) Hematuria: Code(s): R31.9 - Hematuria, unspecified Status: Acute Assessment and Plan: Patient had new onset of blood in the diaper felt from urinary source. Scant vaginal blood but could be urine refluxing into the vagina. She had this in May [address] scan at that time showing bladder hematoma with f=plabs for outpatient followup (patient did not sched f/u). Pelvic US here did not show any concerning uterine findings. UA noted. UCx positive for Klebsiella sensitive to Cipro and Cipro added. CT A/P showing no etiology of the hematuria. Probably hemorrhagic cystitis. Urology consulted and followed along. The patient to follow up with urology for cysto. (2) Acute UTI: Code(s): N39.0 - Urinary tract infection, site not specified Status: Acute Assessment and Plan: As above. Unclear if UTI present on admission since she had hematuria on admission. (3) Pericardial effusion: Code(s): I31.3 - Pericardial effusion (noninflammatory) Status: Acute Assessment and Plan: CT scan showing a moderate-sized pericardial effusion. Echo ordered showing EF 65-70%, Grade I diastolic dysfunction and small-moderate pericardial effusion without other concern findings. Echo in November showing small circumferential pericardial effusion. Discussed with Cardiology and felt that would consider repeating Echo if patient becomes symptomatic. (4) Altered mental status: Qualifiers: Altered mental status type: disorientation Qualified Code(s): R41.0 - Disorientation, unspecified Code(s): R41.82 - Altered mental status, unspecified Status: Acute Assessment and Plan: Patient became more alert but remained confused. She was found down at home. Brain CT showing old CVAs. Cervical spine CT showing no acute findings. Blood pressure was markedly elevated on admission. Patient may not be taking her medications correctly. Mental status may be related to her taking too much or too little of her chronic medications. There is also a notation in the chart that patient has been exchanging pain medications with friends which could also be the etiology of her mental status changes. Urine drug screen was negative. Brain MR with multiple old infarcts but no acute findings. Urinalysis on admission showed 3+ protein and microscopic hematuria but no evidence of UTI; repeat UA with the heamturia more consistent with UTI. Suspect underlying vascular dementia. She worked with PT and OT. (5) Acute congestive heart failure: Code(s): I50.9 - Heart failure, unspecified Status: Acute Assessment and Plan: Echo from November 2020 showing EF of 60-65% and grade 1 diastolic dysfunction and small circumferential pericardial effusion.. Chest x-ray showing bilateral lower lobe airspace disease possibly edema. Her BNP was 1950. Troponin mildly elevated felt related to the CHF exacerbation. Pneumonia seems less likely. White count was elevated on admission but has trended downward on no abx. No fevers. She was started on IV Lasix but developed metabolic alkalosis with prerenal azotemia so IV furosemide stopped. BUN and serum bicarb stable so we resume home oral Lasix. Continue follow. (6) Elevated troponin: Code(s): R77.8 - Other specified abnormalities of plasma proteins Status: Acute Assessment and Plan: Troponin elevated 0.102 but has trended down from there. Chest x-ray today showing bilateral lower lobe airspace disease. EKG showed normal sinus rhythm with short SC interval and borderline ST T wave changes. These findings appears similar to an EKG from last year. Patient is on Plavix and Lipitor which will resume. Elevated troponin felt related to markedly elevated blood pressure and/or CHF.
== END 2021-03-25 14:20 | DRG 689 ==
LOC: ANHED 03-19 01:06 → ANHIMU 03-19 03:12 → ANH2MED 03-21 17:51
PROVIDERS: Internal Medicine; Admitting Provider Internal Medicine; Emergency Provider Family Medicine; PCP Internal Medicine; Visit Provider Internal Medicine
DX: N30.91 Cystitis, unspecified with hematuria (principal); I50.33 Acute on chronic diastolic (congestive) heart failure; I31.3 Pericardial effusion (noninflammatory); I11.0 Hypertensive heart disease with heart failure; B96.1 Klebsiella pneumoniae [K. pneumoniae] as the cause of diseases classified elsewhere; R79.89 Other specified abnormal findings of blood chemistry; I89.0 Lymphedema, not elsewhere classified; E03.9 Hypothyroidism, unspecified; F41.8 Other specified anxiety disorders; K21.9 Gastro-esophageal reflux disease without esophagitis; M19.90 Unspecified osteoarthritis, unspecified site; E55.9 Vitamin D deficiency, unspecified; G25.81 Restless legs syndrome; E78.2 Mixed hyperlipidemia; F01.50 Vascular dementia, unspecified severity, without behavioral disturbance, psychotic disturbance, mood disturbance, and anxiety; W19.XXXA Unspecified fall, initial encounter; Z66 Do not resuscitate; Z86.73 Personal history of transient ischemic attack (TIA), and cerebral infarction without residual deficits; Z87.891 Personal history of nicotine dependence; Z91.19 Patient's noncompliance with other medical treatment and regimen
CPT/HCPCS: 36415; 51701; 70450; 70553; 71045; 72125; 74018; 74176; 76856; 80048; 80053; 80069; 80307; 81001; 83735; 83880; 84484; 85025; 85027; 87077; 87086; 87088; 87186; 93005; 93306; 96361; 96372; 96374; 96375; 96376; 97110; 97163; 97165; 97530; 97535; 99285; A9270; A9577; G0378; J0360; J1650; J1940; J2405; J7030